=== PATIENT | female | born 1995 | race Caucasian/White ===

== ENCOUNTER 2024-11-25 08:35 | Outpatient (RCR) | payer BC, SELFPAY ==
[2024-11-25] MEDS: RHO(D) IMMUNE GLOBULIN 300 MCG/2 ML SYRINGE IM (14:43)
== END 2025-02-23 23:59 | disposition home or self-care (01) ==
LOC: ANHLAB 08:35
PROVIDERS: Visit Provider Obstetrics & Gynecology
DX: O26.899 Other specified pregnancy related conditions, unspecified trimester (principal); Z67.91 Unspecified blood type, Rh negative; Z3A.00 Weeks of gestation of pregnancy not specified
CPT/HCPCS: 36415; 85461; 86850; 86900; 86901; 90384; 96372; J2790

== ENCOUNTER 2024-12-05 11:13 | Observation (INO) | payer BC, SELFPAY ==
--- NOTE | 2024-12-05 11:15 | OBADM ---
This patient, Smita Rios, admitted to the OB room OB Post 115 for observation. Patient/family oriented to hospital policies and general routines including ID bracelet, bed and alarms, visiting hours, pain management, procedures, bathroom and other care routines, personal items, smoking policy, room service/diet, and visiting hours. Patient/Family are encouraged to report perceived risks to care and to ask questions if they do not understand what they are told or what they should do.
--- OUTSIDE RECORDS SUMMARY | 2024-12-05 11:19 | XMS_ITS | Encounter Summary ---
Author Organization [facility] Address [address] [place] [address] Phone Care Team Providers Care Farm Equipment Assembler Name Role Phone Ziggy Greene MD Primary Care Provider [phone] Sasha Wang APRN, TRAVIS Primary Care P rovider Encounter Details Date Type Department Care Team (Late Contact Info) Description 04/10/2021 [facility] [address] [place] [address] Sandra Thomas APRN, PASTRY COOK APPRENTICE [address] [place] [address] Social History Tobacco Use Types Packs/Day Years Used Date Smoking Tobacco: Never Smokeless Tobacco: Never Alcohol Use Standard Drinks/Week Comments No 0 (1 standard drink = 0.6 oz pur e alcohol) PHQ-2 Answer Date Recorded PHQ-2 Score 9 06/29/2019 Sexually Active Control Partners Comments Yes Oral Contraceptive Comments No Sex and Gender Information Value Date Recorded Sex Assigned at Not on file Legal Sex Female 10:39 PM CDT Gender Identity Not on file Sexual Orientation Not on file documented as of this encounter Plan of Treatment Upcoming Encounters Date Type Department Care Team (Late Contact Info) Description 12/09/2024 10:00 AM DIGITAL STRATEGY MANAGER [facility] - Rebecca [facility] [place] [address] [place] [phone] Sasha Wang HIP HOP ARTIST, PASTRY COOK APPRENTICE [address] [place] [id number] documented as of this encounter Procedures Procedure Name Priority Date/Time Associated Diagnosis Comments MMRV PANEL Routine 04/10/2021 9:55 AM CDT MUMPS IGG Routine 04/10/2021 9:55 AM CDT HERPES ZOSTER (VARICELLA) IGG Routine 04/10/2021 9:55 AM CDT RUBEOLA (MEASLES) IGG Routine 04/10/2021 9:55 AM CDT RUBELLA IMMUNITY IGG Routine 04/10/2021 9:55 AM CDT HEPATITIS B SURFACE ANTIBODY (HBSAB) Routine 04/10/2021 9:55 AM CDT documented in this encounter Results * (ABNORMAL) HERPES ZOSTER (VARICELLA) IGG (04/10/2021 9:55 AM CDT) VARICELLA ZOSTER IGG 0.5(L) >=1.1 AI 04/10/2021 9:55 PM CDT [facility] Blood Venipuncture / Unknown 04/10/2021 9:55 AM CDT 04/10/2021 1:27 PM CDT Narrative [facility] - 04/10/2021 9:55 PM CDT <= 0.8 Negative. No detectable VZV IgG antibody. 0.9 - 1.0 Equivocal >=1.1 Positive Antibody testing was performed by multiplex flow immunoassay on the [employer] platform. us Sandra Thomas HIP HOP ARTIST, PASTRY COOK APPRENTICE IMMUNOLOGY ORDERABL ES Final Result [facility] [address] [place] [address], [place] * (ABNORMAL) RUBEOLA (MEASLES) IGG (04/10/2021 9:55 AM CDT) MEASLES AB IGG 0.2(L) >=1.1 AI 04/10/2021 9:55 PM CDT [facility] Blood Venipuncture / Unknown 04/10/2021 9:55 AM CDT 04/10/2021 1:27 PM CDT Narrative [facility] - 04/10/2021 9:55 PM CDT <= 0.8 Negative. No detectable Measles IgG antibody. 0.9 - 1.0 Equivocal >=1.1 Positive Antibody testing was performed by multiplex flow immunoassay on the [employer] platform. Sandra Thomas HIP HOP ARTIST, PASTRY COOK APPRENTICE IMMUNOLOGY ORDERABL ES Final Result Performing Organization Address City/[facility]/ZIP Co de Phone Number [facility] [address] [place] [address], [place] * RUBELLA IMMUNITY IGG (04/10/2021 9:55 AM CDT) RUBELLA IMMUNITY Immune Immune, Invalid 04/10/2021 9:55 PM CDT [facility] Blood Venipuncture / Unknown 04/10/2021 9:55 AM CDT 04/10/2021 1:27 PM CDT Narrative [facility] - 04/10/2021 9:55 PM CDT Antibody testing was performed by multiplex flow immunoassay on the [employer] platform. us Sandra L Behrends HIP HOP ARTIST, PASTRY COOK APPRENTICE CHEMISTRY ORDERABLE S Final Result [facility] [address] [place] [address], [place] * (ABNORMAL) MUMPS IGG (04/10/2021 9:55 AM CDT) Mumps Ab IgG 1.0(L) >=1.1 AI 04/10/2021 9:55 PM CDT [facility] Blood Venipuncture / Unknown 04/10/2021 9:55 AM CDT 04/10/2021 1:27 PM CDT Narrative [facility] - 04/10/2021 9:55 PM CDT <= 0.8 Negative. No detectable Mumps IgG antibody. 0.9 - 1.0 Equivocal >=1.1 Positive Antibody testing was performed by multiplex flow immunoassay on the [employer] platform. us Sandra Thomas APRN, PASTRY COOK APPRENTICE IMMUNOLOGY ORDERABL ES Final Result Performing Organization Address City/[facility]/ZIP Co de Phone Number [facility] [address] [place] [address], [place] * HEPATITIS B SURFACE ANTIBODY (HBSAB) (04/10/2021 9:55 AM CDT) HEPATITIS B SURFACE ANTIBODY 19.05 mIU/mL [facility] ARCH [id number] B 04/10/2021 9:44 PM CDT [facility] Comment: Detected Range: >12.00 Individual is considered immune to HBV infection Blood Venipuncture / Unknown 04/10/2021 9:55 AM CDT 04/10/2021 1:27 PM CDT us Sandra Thomas APRN, PASTRY COOK APPRENTICE CHEMISTRY ORDERABLE S Final Result Performing Organization Address City/[facility] Co de Phone Number [facility] [address] [place] [address], [place] documented in this encounter Visit Diagnoses Not on filedocumented in this encounter Additional Health Concerns Infection Onset Date Last Indicated Resolved Time COVID - 19 10/22/2021 10/22/2021 11/11/2021 12:1 6 AM DIGITAL STRATEGY MANAGER COVID - 19 Confirmed 05/29/2022 05/29/2022 022 12:16 AM CDT Assessment Noted Time PHQ-9 Depression Total Score: 9 11/19/19 19 8:06 AM DIGITAL STRATEGY MANAGER documented as of this encounter Care Teams Farm Equipment Assembler Relationship Specialty Start Date End Date Ziggy Greene MD PCP - General Family Medicine 01/14/19 01/15/22 Sasha Wang APRN, PASTRY COOK APPRENTICE [address] [place] [address] PCP - General Advanced Practice Nurse 01/16/22 documented as of this encounter
--- OUTSIDE RECORDS SUMMARY | 2024-12-05 11:19 | XMS_ITS | Encounter Summary ---
Author Organization [facility] Address [address] [place] [address] Phone Care Team Providers Care Salesperson Yard Goods Name Role Phone Ziggy Greene MD Primary Care Provider [phone] Sasha Wang APRN, CNP Primary Care P rovider Encounter Details Date Type Department Care Team (Late st Contact Info) Description 10/23/2021 Lab Requisition [facility] Laboratory Services [address] [place] [address] Angel Mills MD [address] [place] [phone] Cough, unspecified; Nasal congestion; Headache, unspecified Social History Tobacco Use Types Packs/Day Years [...] (Late Contact Info) Description 12/09/2024 10:00 AM SENIOR ELECTRICAL DESIGN ENGINEER [facility] Rebecca [address] [place] [address] Sasha Wang APRN, CISCO CONSULTANT [address] [place] [address] documented as of this encounter Procedures Procedure Name Priority Date/Time Associated Diagnosis Comments SARS-COV-2 BY MOLECULAR Routine 10/22/2021 7:45 AM SENIOR ELECTRICAL DESIGN ENGINEER Cough, unspecified Nasal congestion Headache, unspecified documented in this encounter Results * SARS-COV-2 BY MOLECULAR (10/22/2021 7:45 AM SENIOR ELECTRICAL DESIGN ENGINEER) SARSCOV2 NOT DETECTED (Referenc e Range for this test is Not Detected) [facility] ID NOW 10/23/2021 9:19 AM SENIOR ELECTRICAL DESIGN ENGINEER [facility] Comment:This test was perfor med by a MOLECULAR, NON-PCR method Other No Phlebotomy Charged / Unknown 10/22/2021 7:45 AM SENIOR ELECTRICAL DESIGN ENGINEER 10/23/2021 9:18 AM SENIOR ELECTRICAL DESIGN ENGINEER Narrative [facility] - 10/23/2021 9:19 AM SENIOR ELECTRICAL DESIGN ENGINEER This test has been authorized by the FDA under an Emergency Use Authorization (EUA) only. Negative results should be treated as presumptive and, if inconsistent with clinical signs and symptoms or necessary for patient management, the patient should be tested with an alternative molecular assay. Negative results do not preclude SARS-CoV-2 infection or any other respiratory pathogen. Additional information for Clinicians can be found at: https://www.fda.gov/media/478297/download Additional information for Patients can be found at: https://www.fda.gov/media/276651/download us Angel Mills MD MICROBIOLOGY - GENERAL ORDERAB LES Final Result [facility] [address] [place] [address] documented in this encounter Visit Diagnoses Diagnosis Cough, unspecified Nasal congestion Other diseases of nasal cavity and sinuses Headache, unspecified documented in this encounter Additional Health Concerns Infection Onset Date Last Indicated Resolved Time COVID - 19 10/22/2021 10/22/2021 11/11/2021 12:1 6 AM SENIOR ELECTRICAL DESIGN ENGINEER COVID - 19 Confirmed 05/29/2022 05/29/2022 022 12:16 AM CDT Assessment Noted Time PHQ-9 Depression Total Score: 9 11/19/19 19 8:06 AM SENIOR ELECTRICAL DESIGN ENGINEER documented as of this encounter Care Teams Salesperson Yard Goods Relationship Specialty Start Date End Date Ziggy Greene MD PCP - General Family Medicine 01/14/19 01/15/22 Sasha Wang APRN, CISCO CONSULTANT [address] [place] [address] PCP - General Advanced Practice Nurse 01/16/22 documented as of this encounter
--- OUTSIDE RECORDS SUMMARY | 2024-12-05 11:19 | XMS_ITS | Clinical Summary ---
Author Organization [employer] [address] [facility] Address [address] [place] [address] Care Team Providers Care Second Grade Teacher Name Role Phone Unavailable Primary Care Provider Unavailabl e Allergies No known active allergies Medications levonorgestreL (ANTONINO) 14 mcg/24 hrs (3 yrs) 13.5 mg IUD by Intrauterine route. Active Active Problems Problem Noted Date Diagnosed Date Prediabetes 07/13/2019 Moderate episode of recurrent major depressive d isorder 07/13/2019 TATIANA (generalized anxiety disorder) 07/13/2019 IUD (intrauterine device) in place 07/13/2019 Overview (07/13/2019): Placed last year PCOS (polycystic ovarian syndrome) 07/13/2019 History of kidney stones 02/27/2017 Immunizations Immunization Administration Dates Next Due (ADACEL/BOOSTRIX)(10 YR UP) TDAP VACCINE, 0.5ML, IM 09/10/2019 (PFIZER)(12 YR UP) COVID-19 VACCINE - EMERGENCY USE AUTHORIZATION, MRNA, [id number](PF) 30 MCG/0.3 ML IM SUSP 10/19/2020,09/27/2020 Influenza Seasonal Unspecifi ed Formulation IM 07/14/2020,06/29/2019,06/16/2019 Influenza Vaccine Tri Split 4+ Im 07/14/2018 Family History Medical History Relation Name Comments No Known Problems Father No Known Problems Maternal Grandfather COPD Maternal Grandmother Heart Disease Maternal Grandmother Kidney Disease Maternal Grandmother No Known Problems Mother No Known Problems Paternal Grandfather Cancer Paternal Grandmother skin Diabetes Paternal Grandmother Heart Disease Paternal Grandmother Relation Name Status Comments Father Alive Maternal Grandfather Maternal Grandmother Mother Alive Paternal Grandfather Paternal Grandmother Social History Tobacco Use Types Packs/Day Years Used Date Smoking Tobacco: Never Smokeless Tobacco: Never Tobacco Cessation:Counseling Given: No Alcohol Use Standard Drinks/Week Comments Never 0 (1 standard drink = 0.6 oz pur e alcohol) Comments No Sex and Gender Information Value Date Recorded Sex Assigned at Not on file Legal Sex Female 8:29 AM CDT Gender Identity Not on file Sexual Orientation Not on file Last Filed Vital Signs Vital Sign Reading Time Taken Comments Blood Pressure 110/70 10/03/2020 9:04 AM ARCHITECTURAL REPRESENTATIVE Pulse 84 12/28/2019 2:55 PM CDT Temperature 36.3 C (97.4 F) 10/19/2019 10:57 AM ARCHITECTURAL REPRESENTATIVE Respiratory Rate 17 12/28/2019 2:55 PM CDT Oxygen Saturation 97% 12/28/2019 2:55 PM CDT Inhaled Oxygen Concentration - - Weight 84.2 kg (185 lb 9.6 oz) 10/03/2020 9:04 A M ARCHITECTURAL REPRESENTATIVE Height 172.7 cm (5' 8 ) 10/03/2020 9:04 AM ARCHITECTURAL REPRESENTATIVE Body Mass Index 28.22 10/03/2020 9:04 AM ARCHITECTURAL REPRESENTATIVE Plan of Treatment Health Maintenance Due Date Last Done Comments HEPATITIS B VACCINES (1 of 3 - 19+ 3-dose series) 2015 CERVICAL CANCER SCREENING 10/03/20232019, 07/26/2019, 07/19/2019 INFLUENZA VACCINE (#1) 2024 0, 07/14/2020, 06/29/2019, Additional history exists COVID-19 Vaccine (2023- season) 2024 10/19/2020, 09/27/2020 DTAP/TDAP/TD VACCINES (2 - Td or Tdap) 09/10/2029 09/10/2019 CHLAMYDIA SCREENING (ANNUAL) 11-24 YEARS Discontinued 10/03/2020, 09/24/2019, 07/19/2019 HPV VACCINES Aged Out No longer eligi ble based on patient's age to complete this topic PNEUMOCOCCAL VACCINE 0-64 YEARS Aged Out No longer eligible based on patient's age to complete this topic Procedures Procedure Name Priority Date/Time Associated Diagnosis Comments CHLAMYDIA AND GC, PAP VIAL Routine 10/03/2020 9:23 AM ARCHITECTURAL REPRESENTATIVE Encounter for gynecological examination without abnormal finding Screening examination for venereal disease CERV/VAG CYTO AGE BASED SCREEN PAP W CT/NG Routine 10/03/2020 9:23 AM ARCHITECTURAL REPRESENTATIVE Encounter for gynecological examination without abnormal finding Screening examination for venereal disease from Last 3 Months or Most Recently Relevant to Health Maintenance Results * CERV/VAG CYTO AGE BASED SCREEN PAP W CT/NG (10/03/2020 9:23 AM ARCHITECTURAL REPRESENTATIVE) CASE REPORT Gynecologic Cytology Report Case: [id number] Authorizing Provider: Ana María Austin MD Collected: 10/03/2020 09:23 AM Ordering Location: [facility] Received: 10/03/2020 09:[address] Screen: Diane Srivastava Rescreen: Milvia Houser Specimen: LB PAP TP PROT, Endocervix 10/18/2020 1:40 PM ARCHITECTURAL REPRESENTATIVE [facility] Carbide Grinder Specimen Adequacy Satisfactory for evaluation, endocervical/hood sformation zone component present 10/18/2020 1:40 PM ARCHITECTURAL REPRESENTATIVE [facility] Interpretation Negative for intraepithelial lesion or malignancy 10/18/2020 1:40 PM [facility] Carbide Grinder Other Findings Fungal organisms morphologically consistent with Deidra species 10/18/2020 1:40 PM ARCHITECTURAL REPRESENTATIVE [facility] Carbide Grinder Prev Pap Result LSIL 2019 10/18/2020 1:40 PM ARCHITECTURAL REPRESENTATIVE [facility] Carbide Grinder Educational Note 10/18/2020 1:40 PM ARCHITECTURAL REPRESENTATIVE [facility] Comment:The Pap test is a sc reening test used to aid in the detection of cervical cancer and its precursors. It should not be the sole means by which malignant and premalignant lesions are diagnosed. Both false negative and false positive results may occur. Results must be interpreted in the context of historic and current clinical information. EMBEDDED IMAGE 10/18/2020 1:40 PM ARCHITECTURAL REPRESENTATIVE [facility] Genital SWAB OF ENDOCERVIX / Unknown Collection / Unknown 10/03/2020 9:23 AM ARCHITECTURAL REPRESENTATIVE 10/03/2020 9:02 PM ARCHITECTURAL REPRESENTATIVE Ana María Austin MD PATHOLOGY/CYTOLOGY ORDERABLES Final Result [facility] CLIA# [id number] [place] [address] * CHLAMYDIA AND GC, PAP VIAL (10/03/2020 9:23 AM ARCHITECTURAL REPRESENTATIVE) CHLAMYDIA DNA AMPLIFICATION NOT DETECTED Not Detected 10/04/2020 12:49 AM ARCHITECTURAL REPRESENTATIVE [facility] GC DNA AMPLIFICATION NOT DETECTED Not Detected 10/04/2020 12:49 AM [facility] Genital SWAB OF ENDOCERVIX / Unknown Collection / Unknown 10/03/2020 9:23 AM ARCHITECTURAL REPRESENTATIVE 10/03/2020 9:02 PM ARCHITECTURAL REPRESENTATIVE Ana María Austin MD BODY FLUIDS AND STOOLS COM Fin al Result [facility] CLIA# [id number] [place] [address] from Last 3 Months or Most Recently Relevant to Health Maintenance
--- OUTSIDE RECORDS SUMMARY | 2024-12-05 11:19 | XMS_ITS | Encounter Summary ---
Author Organization [facility] Address [address] [place] [address] Care Team Providers Care Home Health Care Provider Name Role Phone Alva Umaña Primary Care Provider [phone] Encounter Details Date Type Department Care Team (Late st Contact Info) Description 02/16/2019 Lab Requisition [facility] [address] [place] [address] [place] [address] [facility] [address] [place] [phone] Social History Tobacco Use Types Packs/Day Years Used Date Smoking Tobacco: Never Assessed Comments Unknown Sex and Gender Information Value Date Recorded Sex Assigned at Not on file Legal Sex Female 8:29 AM CDT Gender Identity Not on file Sexual Orientation Not on file documented as of this encounter Plan of Treatment Not on file documented as of this encounter Procedures Procedure Name Priority Date/Time Associated Diagnosis Comments T-SPOT TB Routine 02/16/2019 8:30 AM CDT HEPATITIS B SURFACE AB, QUANT Routine 02/16/2019 8:30 AM CDT documented in this encounter Results * T-SPOT TB (02/16/2019 8:30 AM CDT) T-SPOT TB Negative 02/19/2019 8:15 AM CDT [facility] [employer] [facility] T-SPOT TB See Scanned Report 02/19/2019 8:15 AM CDT [facility] [employer] [facility] Blood Venipuncture / Unknown 02/16/2019 8:30 AM CDT 02/16/2019 8:30 AM CDT Luis Ceron MD MICROBIOLOGY - GENERAL ORDER SINDHU Final Result Performing Organization Address City/[facility]/ZIP Co de Phone Number [facility] [[email or web address]] CLIA# [id number] [place] [address] * (ABNORMAL) HEPATITIS B SURFACE AB, QUANT (02/16/2019 8:30 AM CDT) HEPATITIS B SURF AB,QN <4.0 mlU/mL 02/16/2019 2:11 PM CDT [facility] HEPATITIS B SURFACE AB INTERP Non-reacti ve(A) See Interp 02/16/2019 2:11 PM CDT [facility] Blood Venipuncture / Unknown 02/16/2019 8:30 AM CDT 02/16/2019 8:30 AM CDT Narrative [facility] - 02/16/2019 2:11 PM CDT Patient does not have immunity to Hepatitis B virus. This assay is used to determine immune status to Hepatitis B as greater than or equal to 10 mIU/mL as per CDC guidelines (MMWR:vol 55: RR-16, 2006). Luis Ceron MD CHEMISTRY ORDERABLES Final R esult Performing Organization Address City/[facility]/ZIP Co de Phone Number [facility] CLIA# [id number] [address] [place] [address] documented in this encounter Visit Diagnoses Not on filedocumented in this encounter Additional Health Concerns Infection Onset Date Last Indicated Resolved Time R/O COVID-19 08/17/2020 08/17/2020 08/24/2021 9:06 PM BOTTLE WASHER documented as of this encounter Care Teams Home Health Care Provider Relationship Specialty Start Date End Date Alva Umaña DO PCP - General Family Practice 07/12/19 04/19/21 documented as of this encounter
--- OUTSIDE RECORDS SUMMARY | 2024-12-05 11:19 | XMS_ITS | Clinical Summary ---
Author Organization [facility] Address [address] [place] [address] Phone Care Team Providers Care Health And Social Care Teacher Name Role Phone Sasha Wang APRN, CNP Primary Care P rovider Allergies No known active allergies Medications Vit-Fe Fumarate-FA (MULTI PO) Take by mouth daily. Active fluconazole (DIFLUCAN) 150 MG TabletIndication s:Vagina, candidiasis 1 tab now, repeat in 3 days. 2 Tablet 06/04/2024 Active Active Problems Problem Noted Date Diagnosed Date Pre-diabetes 10/23/2023 PCOS (polycystic ovarian syndrome) 10/23/2023 Current moderate episode of major depressive disorder without prior episode 11/19/2018 Vitamin D deficiency 10/16/2017 B12 deficiency 10/16/2017 Fatigue 09/23/2017 History of kidney stones 02/27/2017 Encounters Date Type Department Care Team Description 09/22/2024 [facility] [address] [place] [address] Sasha Wang APRN, ENTERPRISE INFRASTRUCTURE ARCHITECT Advice Only from Last 3 Months Immunizations Immunization Administration Dates Next Due Covid-19, Mrna, Lnp-s, Pf, 3 0 Mcg/0.3 Ml Dose (DC Devices) 09/28/2021 DTAP VACCINE, UNSPECIFIED FORMULATION ,11/24/1997,02/04/1997,12/16,1996 Hepatitis A Vaccine 03/05/2017 Hepatitis A Vaccine,unspecif ied Formulation 03/12/2016 Hepatitis B Vaccine,unspecif ied Formulation 1996,1996,1996 Hib Vaccine,unspecified Formulation 09/13,02/04/1997,1996,07/09 Human Papillomavirus Vaccine (HPV), quadrivalent 10/03/2010,06/28/2010,04/05/2010 Influenza Vaccine greater than 3 yrs 08/01/2020, 07/14/2018 Influenza Vaccine, Quadrivalent, PF 06/25/2023,1 ,07/02/2018 Influenza, Injectable, Quadrivalent 03/05/2017 Influenza, Seasonal, Injecta ble, Undefined 08/01/2020,07/14/2020,06/29/2019,06/16,07/14/2018 MMR Vaccine 04/18/2001,10/07/1997 Meningococcal Vaccine 06/02/2008 Polio Vaccine,unspecified Formulation ,11/24/1997,1996,07/09 TB Skin Test 04/05/2022 TDAP Vaccine 09/10/2019,04/05/2010 Varicella Vaccine Live 04/04/2017,03/05/2017 Family History Medical History Relation Name Comments Congestive Heart Failure Father Cervical Cancer Mother Osteoarthritis Mother Asthma Sister Relation Name Status Comments Father Alive Mother Alive Sister Alive Social History Tobacco Use Types Packs/Day Years Used Date Smoking Tobacco: Never Smokeless Tobacco: Never Tobacco Cessation:Counseling Given: Not Answered Alcohol Use Standard Drinks/Week Comments No 0 (1 standard drink = 0.6 oz pur e alcohol) [facility] AllergEaseities Answer Date Recorded In the past 12 months has [employer], gas, oil, or water [employer] threatened to shut off services in your home? No 10/21/2023 Social Connection and Isolat ion Panel [NHANES] Answer Date Recorded In a typical week, how many times do you talk on the phone with family, friends, or neighbors? More than three times a week 10/21/2023 How often do you get togethe r with friends or relatives? Twice a week 10/21/2023 How often do you attend [facility] or sikhism services? Never 10/21/2023 Do you belong to any clubs o r organizations such as samaritan groups, unions, fraternal or athletic groups, or school groups? No 10/21/2023 How often do you attend meet ings of the clubs or organizations you belong to? Never 10/21/2023 Are you , , di vorced, , never , or living with a partner? Living with partner 10/21/2023 AUDIT-C Answer Date Recorded Q1: How often do you have a drink containing alc ohol? Monthly or less 10/21/2023 Q2: How many drinks containi ng alcohol do you have on a typical day when you are drinking? 1 or 2 10/21/2023 Q3: How often do you have si x or more drinks on one occasion? Less than monthly 10/21/2023 Overall Financial Resource Strain (CARDIA) Answe r Date Recorded How hard is it for you to pa y for the very basics like food, housing, medical care, and heating? Patient declined 10/21/2023 PHQ-2 Answer Date Recorded Total Score - Questions 1-9 10 03/2022 [facility] - Occupational Stress Questionnaire Answer Date Recorded Do you feel stress - tense, restless, nervous, or anxious, or unable to sleep at night because your mind is troubled all the time - these days? Only a little 10/21/2023 Exercise Vital Sign Answer Date Recorde d On average, how many days pe r week do you engage in moderate to strenuous exercise (like a brisk walk)? 3 days 10/21/2023 On average, how many minutes do you engage in exercise at this level? 40 min 10/21/2023 Hunger Vital Sign Answer Date Recorded Within the past 12 months, y ou worried that your food would run out before you got the money to buy more. Patient declined Within the past 12 months, t he food you bought just didn't last and you didn't have money to get more. Patient declined 06/2024 PRAPARE - Transportation Answer Date Re corded In the past 12 months, has l ack of transportation kept you from medical appointments or from getting medications? No 06/2024 In the past 12 months, has l ack of transportation kept you from meetings, work, or from getting things needed for daily living? No 10/21/2023 Housing Stability Vital Sign Answer Jb e Recorded In the last 12 months, was t here a time when you were not able to pay the mortgage or rent on time? No 10/21/2023 In the last 12 months, how many places have you lived? 1 10/21/2023 In the last 12 months, was t here a time when you did not have a steady place to sleep or slept in a mcc (including now)? No 10/21/2023 Education Answer Date Recorded What is the highest level of school you have completed or the highest degree you have received? Associate degree: academic program 05/01/2022 Sexually Active Control Partners Comments Yes Comments No Sex and Gender Information Value Date Recorded Sex Assigned at Not on file Legal Sex Female 10:39 PM CDT Gender Identity Not on file Sexual Orientation Not on file Last Filed Vital Signs Vital Sign Reading Time Taken Comments Blood Pressure 122/88 06/03/2024 9:45 AM CDT Pulse 79 06/03/2024 9:45 AM CDT Temperature 37.4 C (99.4 F) 06/03/2024 9:45 AM CDT Respiratory Rate 14 06/03/2024 9:45 AM CDT Oxygen Saturation 100% 06/03/2024 9:45 AM CDT Inhaled Oxygen Concentration - - Weight 89.4 kg (197 lb 2 oz) 06/03/2024 9:45 AM CDT Height 172.7 cm (5' 8 ) 06/03/2024 9:45 AM CDT Body Mass Index 29.97 06/03/2024 9:45 AM CDT Plan of Treatment Upcoming Encounters Date Type Department Care Team (Late st Contact Info) Description 12/09/2024 10:00 AM ASSEMBLY MEMBER Office Visit [facility] - Primary Care - [place] [address] [place] [address] Sasha Wang APRN, ENTERPRISE INFRASTRUCTURE ARCHITECT [address] [place] [address] Health Maintenance Due Date Last Done Comments Hepatitis C Virus (HCV) Screening 1996 Pap Smear 10/03/2023 10/03/2020 Influenza Immunization (#1) 06/13/202406/13, 07/18/2022, 08/01/2020, Additional history exists SARS-COV-2 Immunization ( season) 2024 09/28/2021, 10/19/2020, 09/27/2020 DTaP/Tdap/Td Immunization (8 - Td or Tdap) 09/10/2029 09/10/2019, 04/05/2010, 04/28/2001, Additional history exists Td Immunization Every 10 Years (Adults With 1 Tdap) 09/10/2029 09/10/2019, 04/05/2010 Respiratory Syncytial Virus (RSV) Immunization (Adult) (1 - 1-dose 75+ series) 2071 Hepatitis B Immunization Completed 997, 1996, 1996 Meningococcal Immunization (ACWY) Aged Out 06/02/2008 No longer eligible based on patient's age to complete this topic Human Papillomavirus (HPV) Immunization Discontinued 10/03/2010, 06/28/2010, 04/05/2010 Pneumococcal Immunization Combined Aged Out No longer eligible based on patient's age to complete this topic Rotavirus Immunization Aged Out No lo nger eligible based on patient's age to complete this topic Insurance [facility] Care Teams Health And Social Care Teacher Relationship Specialty Start Date End Date Sasha Wang APRN, ENTERPRISE INFRASTRUCTURE ARCHITECT [address] [place] [address] PCP - General Advanced Practice Nurse 01/16/22
[2024-12-05 11:31] VITALS: BP 133/71; PULSE 83
[2024-12-05 11:45] LABS: Add Urine Microscopic? NO; Appearance Urine Clear (Clear); Bilirubin Urine Negative (Negative); Blood Urine Negative (Negative); Color Urine Yellow (Yellow); Glucose Urine UA Negative (Negative); Ketones Urine Negative (Negative); Leukocyte Esterase Ur Negative LEU/UL (Negative); Nitrate Urine Negative (Negative); Protein Urine Negative (Negative); Urobilinogen Urine 0.2 mg/dL (<2.0); pH Urine 7.5 (5.0-9.0)
[2024-12-05 11:46] VITALS: BP 134/69; PULSE 78
[2024-12-05 12:01] VITALS: BP 130/69; PULSE 80
[2024-12-05 12:16] VITALS: BP 124/71; PULSE 72
[2024-12-05 12:26] VITALS: BMI 33.5
--- NOTE | 2024-12-08 12:27 | P.PNOB_ITS ---
OB - Triage/Final Diagnosis Visit Information Reason for evaluation: threatened labor Comments/Additional reasons for admission: I have assessed the risk for this patient, Smita Rios, and determined that she would benefit from observation care. Evaluation Laboratory results: Laboratory Tests 12/05/24 11:22 Urine Color Yellow Urine Appearance Clear Urine pH 7.5 Ur Specific [place] 1.010 Urine Protein Negative Urine Glucose (UA) Negative Urine Ketones Negative Ur Blood (Man) Negative Urine Nitrate Negative Urine Bilirubin Negative Urine Urobilinogen 0.2 Ur Leukocyte Esterase Negative
== END 2024-12-05 12:25 | disposition home or self-care (01) ==
PROVIDERS: Admitting Provider Obstetrics & Gynecology; Visit Provider Obstetrics & Gynecology
DX: O47.03 False labor before 37 completed weeks of gestation, third trimester (principal); Z3A.29 29 weeks gestation of pregnancy
CPT/HCPCS: 81003; 87086; G0378; G0379

== ENCOUNTER 2025-01-07 09:36 | Outpatient (CLI) | payer BC, SELFPAY ==
[2025-01-07] VITALS (8 sets, daily range): BP systolic 129–142; BP diastolic 79–84; PULSE 66–76; BMI 35.9
[2025-01-07 10:14] LABS: Basophils Percent Auto 0.2 % (0.2-1.2); Eosinophils Percent Auto 0.4 % (0-4.4); Hematocrit 31.9 % (37.0-47.0); Hemoglobin 10.7 g/dL (12.0-15.0); Immature Granulocyte Absolute 0.04 K/mm3 (0.00-0.031); Immature Granulocyte Percent A 0.4 % (0-0.5); Lymphocytes Absolute Auto 1.44 K/mm3 (0.9-3.2); Lymphocytes Percent Auto 14.7 % (18.3-44.2); Mean Corpuscular HGB Conc 33.5 g/dl (32-36); Mean Corpuscular Hemoglobin 27.8 pg (26-34); Mean Corpuscular Volume 82.9 fl (80-100); Mean Platelet Volume 9.1 fl (7.4-10.4); Monocytes Absolute Auto 0.4 K/mm3 (0.1-0.6); Monocytes Percent Auto 4.2 % (2.6-8.5); Neutrophils Absolute Auto 7.9 K/mm3 (1.3-6.7); Neutrophils Percent Auto 80.1 % (45.5-73.1); Platelet Count Result 321 k/mm3 (150-375); Red Blood Count 3.85 M/mm3 (4.2-5.4); Red Cell Distribution Width 13.1 % (11.5-14.5); White Blood Count 9.8 K/mm3 (4.5-10.0)
--- OUTSIDE RECORDS SUMMARY | 2025-01-07 10:18 | XMS_ITS | Encounter Summary ---
Author Organization [facility] Address [address] [place] [address] Phone Care Team Providers Care Inventory Associate And Driver Name Role Phone Ziggy Greene MD Primary Care Provider [phone] Sasha Wang APRN, CNP Primary Care P rovider Encounter Details Date Type Department Care Team (Late st Contact Info) Description 04/10/2021 [facility] [address] [place] [address] Sandra Thomas APRN, RECORDS TECH [address] [place] [address] Social History Tobacco Use Types [...] 0.5(L) >=1.1 AI 04/10/2021 9:55 PM CDT [facility] Blood Venipuncture / Unknown 04/10/2021 9:55 AM CDT 04/10/2021 1:27 PM CDT Narrative [facility] - 04/10/2021 9:55 PM CDT <= 0.8 Negative. No detectable VZV IgG antibody. 0.9 - 1.0 Equivocal >=1.1 Positive Antibody testing was performed by multiplex flow immunoassay on the [employer] platform. us Sandra Thomas ADVERTISING EXECUTIVE, RECORDS TECH IMMUNOLOGY ORDERABL ES Final Result [facility] [address] [place] [address], * (ABNORMAL) RUBEOLA (MEASLES) IGG (04/10/2021 9:55 AM CDT) MEASLES AB IGG 0.2(L) >=1.1 AI 04/10/2021 9:55 PM CDT [facility] Blood Venipuncture / Unknown 04/10/2021 9:55 AM CDT 04/10/2021 1:27 PM CDT Narrative [facility] - 04/10/2021 9:55 PM CDT <= 0.8 Negative. No detectable Measles IgG antibody. 0.9 - 1.0 Equivocal >=1.1 Positive Antibody testing was performed by multiplex flow immunoassay on the BioPlex platform. us Sandra Thomas APRN, CNP IMMUNOLOGY ORDERABL ES Final Result Performing Organization Address City/[facility] Co de Phone Number [facility] [address] [place] [address], [place] * RUBELLA IMMUNITY IGG (04/10/2021 9:55 AM CDT) RUBELLA IMMUNITY Immune Immune, Invalid 04/10/2021 9:55 PM CDT [facility] Blood Venipuncture / Unknown 04/10/2021 9:55 AM CDT 04/10/2021 1:27 PM CDT Narrative [facility] - 04/10/2021 9:55 PM CDT Antibody testing was performed by multiplex flow immunoassay on the BioPlex platform. us Sandra Thomas APRN, CNP CHEMISTRY ORDERABLE S Final Result Performing Organization Address [facility] de Phone Number [facility] [address] [place] [address], [place] * (ABNORMAL) MUMPS IGG (04/10/2021 9:55 AM CDT) Mumps Ab IgG 1.0(L) >=1.1 AI 04/10/2021 9:55 PM CDT [facility] Blood Venipuncture / Unknown 04/10/2021 9:55 AM CDT 04/10/2021 1:27 PM CDT Narrative [facility] - 04/10/2021 9:55 PM CDT <= 0.8 Negative. No detectable Mumps IgG antibody. 0.9 - 1.0 Equivocal >=1.1 Positive Antibody testing was performed by multiplex flow immunoassay on the [employer] platform. us Sandra Thomas APRN, CNP IMMUNOLOGY ORDERABL ES Final Result Performing Organization Address [facility] Co de Phone Number [facility] [address] [place] [address], [place] * HEPATITIS B SURFACE ANTIBODY (HBSAB) (04/10/2021 9:55 AM CDT) HEPATITIS B SURFACE ANTIBODY 19.05 mIU/mL [facility] ARCH [id number] 04/10/2021 9:44 PM CDT [facility] Comment: Detected Range: >12.00 Individual is considered immune to HBV infection Blood Venipuncture / Unknown 04/10/2021 9:55 AM CDT 04/10/2021 1:27 PM CDT us Sandra Thomas APRN, CNP CHEMISTRY ORDERABLE S Final Result Performing Organization Address [facility] Co de Phone Number [facility] [address] [place] [address], [place] documented in this encounter Visit Diagnoses Not on filedocumented in this encounter Additional Health Concerns Infection Onset Date Last Indicated Resolved Time COVID - 19 10/22/2021 10/22/2021 11/11/2021 12:1 6 AM PAPER BAG MACHINE OPERATOR COVID - 19 Confirmed 05/29/2022 05/29/2022 022 12:16 AM CDT Assessment Noted Time PHQ-9 Depression Total Score: 9 11/19/19 19 8:06 AM PAPER BAG MACHINE OPERATOR documented as of this encounter Care Teams Inventory Associate And Driver Relationship Specialty Start Date End Date Ziggy Greene MD PCP - General Family Medicine 01/14/19 01/15/22 Sasha Wang APRN, TRAVIS [address] [place] [address] PCP - General Advanced Practice Nurse 01/16/22 documented as of this encounter
--- OUTSIDE RECORDS SUMMARY | 2025-01-07 10:18 | XMS_ITS | Clinical Summary ---
Author Organization [employer] [address] [facility] Address [address] [place] [address] Care Team Providers Care Oil And Gas Principal Name Role Phone Unavailable Primary Care Provider [...] COVID-19 VACCINE - EMERGENCY USE AUTHORIZATION, MRNA, [id number](PF) 30 MCG/0.3 ML IM SUSP 10/19/2020,09/27/2020 Influenza [...] Comments Blood Pressure 110/70 10/03/2020 9:04 AM LONGWALL SHEARER OPERATOR Pulse 84 12/28/2019 2:55 PM CDT Temperature 36.3 C (97.4 F) 10/19/2019 10:57 AM LONGWALL SHEARER OPERATOR Respiratory Rate 17 12/28/2019 2:55 PM CDT Oxygen Saturation 97% 12/28/2019 2:55 PM CDT Inhaled Oxygen Concentration - - Weight 84.2 kg (185 lb 9.6 oz) 10/03/2020 9:04 A M LONGWALL SHEARER OPERATOR Height 172.7 cm (5' 8 ) 10/03/2020 9:04 AM LONGWALL SHEARER OPERATOR Body Mass Index 28.22 10/03/2020 9:04 AM LONGWALL SHEARER OPERATOR Plan of Treatment Health Maintenance Due Date Last Done Comments HEPATITIS B VACCINES (1 of 3 - 19+ 3-dose series) 2015 CERVICAL CANCER SCREENING 10/03/2023 PAP SMEAR 10/03/2023 10/03/2020, 07/13, 07/19/2019 PAP SMEAR 10/03/2023 10/03/2020, 07/13, 07/19/2019 INFLUENZA VACCINE (#1) 2024 , 07/14/2020, 06/29/2019, Additional history exists COVID-19 Vaccine (2023- season) 2024 10/19/2020, 09/27/2020 DTAP/TDAP/TD VACCINES (2 - Td or Tdap) 09/10/2029 09/10/2019 CHLAMYDIA SCREENING (ANNUAL) 11-24 YEARS Discontinued 10/03/2020, 09/24/2019, 07/19/2019 HPV VACCINES Aged Out No longer eligi ble based on patient's age to complete this topic PNEUMOCOCCAL VACCINE 0-49 YEARS Aged Out No longer eligible based on patient's age to complete this topic Procedures Procedure Name Priority Date/Time Associated Diagnosis Comments CHLAMYDIA AND GC, PAP VIAL Routine 10/03/2020 9:23 AM LONGWALL SHEARER OPERATOR Encounter for gynecological examination without abnormal finding Screening examination for venereal disease CERV/VAG CYTO AGE BASED SCREEN PAP W CT/NG Routine 10/03/2020 9:23 AM LONGWALL SHEARER OPERATOR Encounter for gynecological examination without abnormal finding Screening examination for venereal disease from Last 3 Months or Most Recently Relevant to Health Maintenance Results * CERV/VAG CYTO AGE BASED SCREEN PAP W CT/NG (10/03/2020 9:23 AM LONGWALL SHEARER OPERATOR) CASE REPORT Gynecologic Cytology Report Case: [id number] Authorizing Provider: Ana María Austin MD Collected: 10/03/2020 09:23 AM Ordering Location: [facility] Received: 10/03/2020 09:02 PM [facility] - [address] [place] [address] First Screen: Diane Srivastava Rescreen: Milvia Houser Specimen: LB PAP TP PROT, Endocervix 10/18/2020 1:40 PM [facility] Specimen Adequacy Satisfactory for evaluation, endocervical/hood sformation zone component present 10/18/2020 1:40 PM LONGWALL SHEARER OPERATOR [facility] Lens Grinder Rough Interpretation Negative for intraepithelial lesion or malignancy 10/18/2020 1:40 PM [facility] Lens Grinder Rough Other Findings Fungal organisms morphologically consistent with Deidra species 10/18/2020 1:40 PM LONGWALL SHEARER OPERATOR [facility] Lens Grinder Rough Prev Pap Result LSIL 2019 10/18/2020 1:40 PM LONGWALL SHEARER OPERATOR [facility] Lens Grinder Rough Educational Note 10/18/2020 1:40 PM LONGWALL SHEARER OPERATOR [facility] Comment:The Pap test is a sc reening test used to aid in the detection of cervical cancer and its precursors. It should not be the sole means by which malignant and premalignant lesions are diagnosed. Both false negative and false positive results may occur. Results must be interpreted in the context of historic and current clinical information. EMBEDDED IMAGE 10/18/2020 1:40 PM LONGWALL SHEARER OPERATOR [facility] Genital SWAB OF ENDOCERVIX / Unknown Collection / Unknown 10/03/2020 9:23 AM LONGWALL SHEARER OPERATOR 10/03/2020 9:02 PM LONGWALL SHEARER OPERATOR us Ana María Austin MD PATHOLOGY/CYTOLOGY ORDERABLES Final Result [facility] CLIA# [id number] [place] [address] * CHLAMYDIA AND GC, PAP VIAL (10/03/2020 9:23 AM LONGWALL SHEARER OPERATOR) CHLAMYDIA DNA AMPLIFICATION NOT DETECTED Not Detected 10/04/2020 12:[address] [facility] GC DNA AMPLIFICATION NOT DETECTED Not Detected 10/04/2020 12:[address] [facility] Genital SWAB OF ENDOCERVIX / Unknown Collection / Unknown 10/03/2020 9:23 AM LONGWALL SHEARER OPERATOR 10/03/2020 9:02 PM LONGWALL SHEARER OPERATOR us Ana María Austin MD BODY FLUIDS AND STOOLS COM Fin al Result Performing Organization Address City/[facility]/ZIP Co de Phone Number [facility] CLIA# [id number] [place] [address] from Last 3 Months or Most Recently Relevant to Health Maintenance
--- OUTSIDE RECORDS SUMMARY | 2025-01-07 10:18 | XMS_ITS | Encounter Summary ---
Author Organization [facility] Address [address] [place] [address] Phone Care Team Providers Care Air Pollution Compliance Inspector Name Role Phone Sasha Wang APRN, CNP Primary Care P rovider Reason for Visit * Reason Onset Date Comments Appointment 01/07/2025 Encounter Details Date Type Department Care Team (Late st Contact Info) Description 01/07/2025 Telephone [facility] [address] [place] [address] Sasha Wang APRN, TRAVIS [address] [place] [address] Appointment Social History Tobacco Use Types Packs/Day Years Used Date Smoking Tobacco: Never Smokeless Tobacco: Never Alcohol Use Standard Drinks/Week Comments No 0 (1 standard drink = 0.6 oz pur e alcohol) [facility] Utilities Answer Date Recorded In the past 12 months has [employer], gas, oil, or water company threatened to shut off services in your [...] week 10/21/2023 How often do you attend [facility] or cheondoism services? Never 10/21/2023 Do you belong to any clubs o r organizations such as mormon groups, unions, fraternal or athletic groups, or [...] Score - Questions 1-9 10 03/2022 [facility] of Occupat ional Health - Occupational Stress [...] place to sleep or slept in a nursing home (including now)? No 10/21/2023 Education Answer Date [...] on file documented as of this encounter Miscellaneous Notes * Telephone Encounter - Jenny Castillo RN - 01/07/2025 8:54 AM CDT Situation: New patient questions. Background: Emilie contacting Dr. Josephine Le's office Assessment: Emilie is due to have her baby in the next 30 days. She is calling to make sure Dr. Le is accepting new patients. Recommendation: She is aware that Dr. Le office would be able to be her babies primary care provider. Recommended she call before discharge from the hospital to set up a visit time. She verbalized understanding. documented in this encounter Plan of Treatment Not on file documented as of this encounter Visit Diagnoses Not on filedocumented in this encounter Additional Health Concerns Assessment Noted Time PHQ-9 Depression Total Score: 10 022 2:00 PM CDT documented as of this encounter Care Teams Air Pollution Compliance Inspector Relationship Specialty Start Date End Date Sasha Wang APRN, STONE POLISHER MACHINE [address] [place] [address] PCP - General Advanced Practice Nurse 01/16/22 documented as of this encounter
--- OUTSIDE RECORDS SUMMARY | 2025-01-07 10:18 | XMS_ITS | Encounter Summary ---
Author Organization [facility] Address [address] [place] [address] Care Team Providers Care Cigar Making Machine Operator Name Role Phone Alva Umaña Primary Care Provider [phone] Encounter Details Date Type Department Care Team (Late st Contact Info) Description 02/16/2019 Lab Requisition [facility] [address] [place] [address] [place] [address] [facility] [address] [place] [phone] Social History Tobacco Use Types Packs/Day Years [...] T-SPOT TB Negative 02/19/2019 8:15 AM CDT [facility] [place] [facility] T-SPOT TB See Scanned Report 02/19/2019 8:15 AM CDT [facility] [place] [facility] Blood Venipuncture / Unknown 02/16/2019 8:30 AM CDT 02/16/2019 8:30 AM CDT Luis Ceron MD MICROBIOLOGY - GENERAL ORDER SINDHU Final Result Performing Organization Address City/[facility]/ZIP Co de Phone Number [facility] CLIA# [id number] [address] [place] [address] * (ABNORMAL) HEPATITIS B SURFACE AB, QUANT (02/16/2019 8:30 AM CDT) HEPATITIS B SURF AB,QN <4.0 mlU/mL 02/16/2019 2:11 PM CDT [facility] HEPATITIS B SURFACE AB INTERP Non-reacti ve(A) See Interp 02/16/2019 2:11 PM CDT [facility] Blood Venipuncture / Unknown 02/16/2019 8:30 AM CDT 02/16/2019 8:30 AM CDT Narrative [facility] - 02/16/2019 2:11 PM CDT Patient does not have immunity to Hepatitis B virus. This assay is used to determine immune status to Hepatitis B as greater than or equal to 10 mIU/mL as per CDC guidelines (MMWR:vol 55: RR-16, 2006). Luis Ceron MD CHEMISTRY ORDERABLES Final R esult Performing Organization Address City/[facility]/ZIP Co de Phone Number [facility] CLIA# [id number] [address] [place] [address] documented in this encounter Visit Diagnoses Not on filedocumented in this encounter Additional Health Concerns Infection Onset Date Last Indicated Resolved Time R/O COVID-19 08/17/2020 08/17/2020 08/24/2021 9:06 PM COUTURE ALTERATIONS DRESSMAKER documented as of this encounter Care Teams Cigar Making Machine Operator Relationship Specialty Start Date End Date Alva Umaña DO PCP - General Family Practice 07/12/19 04/19/21 documented as of this encounter
--- OUTSIDE RECORDS SUMMARY | 2025-01-07 10:18 | XMS_ITS | Encounter Summary ---
Author Organization [facility] Address [address] [place] [address] Phone Care Team Providers Care Hold Worker Name Role Phone Ziggy Greene MD Primary Care Provider [phone] Sasha Wang APRN, CNP Primary Care P rovider Encounter Details Date Type Department Care Team (Late st Contact Info) Description 10/23/2021 [facility] [address] [place] [address] Angel Mills MD [address] [place] [address] Cough, unspecified; Nasal congestion; Headache, unspecified Social [...] SARS-COV-2 BY MOLECULAR Routine 10/22/2021 7:45 AM PACE ANALYST Cough, unspecified Nasal congestion Headache, unspecified documented in this encounter Results * SARS-COV-2 BY MOLECULAR (10/22/2021 7:45 AM PACE ANALYST) SARSCOV2 NOT DETECTED (Referenc e Range for this test is Not Detected) [facility] [address] MARINO ID NOW 10/23/2021 9:19 AM PACE ANALYST [facility] Comment:This test was perfor med by a MOLECULAR, NON-PCR method Other No Phlebotomy Charged / Unknown 10/22/2021 7:45 AM PACE ANALYST 10/23/2021 9:18 AM PACE ANALYST Narrative [facility] - 10/23/2021 9:19 AM PACE ANALYST This test has been authorized by the [...] information for Clinicians can be found at: https://www.fda.gov/media/184227/download Additional information for Patients can be found at: https://www.fda.gov/media/067454/download us Angel Mills MD MICROBIOLOGY - GENERAL ORDERAB LES Final Result [facility] [address] [place] [address] documented in this encounter Visit Diagnoses Diagnosis Cough, unspecified Nasal congestion Other diseases of nasal cavity and sinuses Headache, unspecified documented in this encounter Additional Health Concerns Infection Onset Date Last Indicated Resolved Time COVID - 19 10/22/2021 10/22/2021 11/11/2021 12:1 6 AM PACE ANALYST COVID - 19 Confirmed 05/29/2022 05/29/202206/18/ 022 12:16 AM CDT Assessment Noted Time PHQ-9 Depression Total Score: 9 11/19/19 19 8:06 AM PACE ANALYST documented as of this encounter Care Teams Hold Worker Relationship Specialty Start Date End Date Ziggy Greene MD PCP - General Family Medicine 01/14/19 01/15/22 Sasha Wang APRN, CADDY MASTER [address] [place] [address] PCP - General Advanced Practice Nurse 01/16/22 documented as of this encounter
--- OUTSIDE RECORDS SUMMARY | 2025-01-07 10:18 | XMS_ITS | Clinical Summary ---
Author Organization [facility] Address [address] [place] [address] Phone Care Team Providers Care Line Analyst Name Role Phone Sasha Wang APRN, CNP [...] Encounters Date Type Department Care Team Description 01/07/2025 Telephone [facility] Call Center [address] [place] [address] Sasha Wang APRN, CNP Appointment from Last 3 Months Immunizations Immunization Administration Dates Next Due Covid-19, Mrna, Lnp-s, Pf, 3 0 Mcg/0.3 Ml Dose ([employer]) 09/28/2021 DTAP VACCINE, UNSPECIFIED FORMULATION ,11/24/1997,02/04/1997,12/16,1996 Hepatitis [...] drink = 0.6 oz pur e alcohol) [facility] [employer] Answer Date Recorded In the past 12 months has [employer], gas, oil, or water [employer] threatened to shut off services in your [...] week 10/21/2023 How often do you attend [facility] or episcopal services? Never 10/21/2023 Do you belong to any clubs o r organizations such as nondenominational groups, unions, fraternal or athletic groups, or [...] Total Score - Questions 1-9 10 03/2022 [facility] - Occupational Stress Questionnaire Answer Date Recorded [...] place to sleep or slept in a mcfp (including now)? No 10/21/2023 Education Answer Date [...] 06/03/2024 9:45 AM CDT Plan of Treatment Health Maintenance Due Date [...] patient's age to complete this topic Insurance [facility] Care Teams Line Analyst Relationship Specialty Start Date End Date Sasha Wang, ECHOCARDIOLOGIST, PLUMBING MECHANIC [address] [place] [address] PCP - General Advanced Practice Nurse 01/16/22
[2025-01-07 10:24] LABS: Alanine Aminotransferase 12 U/L (6-35); Albumin Level 3.3 g/dL (3.5-5.1); Alkaline Phosphatase 103 U/L (38-126); Anion Gap 10 mmol/L (4-12); Aspartate Amino Transferase 14 U/L (14-36); Bilirubin,Total 0.1 mg/dL (0.2-1.3); Blood Urea Nitrogen 6 mg/dL (7-17); Calcium 8.3 mg/dL (8.4-10.2); Carbon Dioxide 20 mmol/L (22-30); Chloride 106 mmol/L (98-107); Estimated Glomerular Filt Rate > 60; Glucose 129 mg/dL (65-110); Potassium 3.3 mmol/L (3.4-5.0); Sodium 136 mmol/L (137-145); Uric Acid 6.2 mg/dL (2.5-7.5)
[2025-01-07] MEDS: ACETAMINOPHEN 500 MG TABLET 1000 MG PO (10:31)
[2025-01-07 10:40] LABS: Add Urine Microscopic? YES; Appearance Urine Clear (Clear); Bacteria Urine 1+ /hpf; Bilirubin Urine Negative (Negative); Blood Urine Negative (Negative); Color Urine Yellow (Yellow); Glucose Urine UA 2+ mg/dL (Negative); Ketones Urine Negative (Negative); Leukocyte Esterase Ur 1+ LEU/UL (Negative); Need Manual Microscopic Reviewed; Nitrate Urine Negative (Negative); Non Pathogenic Casts 0-2; Protein Urine Negative (Negative); RBC Urine 0-2 /hpf (0-2); Specific Grav Ur 1.011 (1.001-1.035); Squamous Epithelial Cell Urine Occasional /hpf (Few); Urobilinogen Urine 0.2 mg/dL (<2.0); WBC Urine 0-5 /hpf (0-3); pH Urine 7.5 (5.0-9.0)
[2025-01-07 10:43] LABS: Creatinine Urine 60.5 mg/dL; Total Protein Urine Random 22 mg/dL; Ur Ttl Prot Creatinine Ratio 0.36 mg/mg (0-0.20)
--- NOTE | 2025-01-07 10:57 | PC.NURSE ---
Dr. Ramsey returned page and informed of heart arrhythmia that was audible on NST- otherwise reactive, BP's, and lab results including K+, 2+ glucose in urine and glucose of 129 on CMP. Pt reports she didn't eat breakfast and has only had water this am. Have already discussed foods high in postassium for pt to include in diet to increase K+. MD would like pt to do a 24 hr urine at home. May give work release for the weekend if pt would like.
== END 2025-01-07 11:31 | disposition home or self-care (01) ==
LOC: ANHOBOP 09:41 → ANHOBPP 09:42
PROVIDERS: Visit Provider Obstetrics & Gynecology
DX: O13.9 Gestational [pregnancy-induced] hypertension without significant proteinuria, unspecified trimester (principal); Z3A.00 Weeks of gestation of pregnancy not specified
CPT/HCPCS: 36415; 59025; 80053; 81001; 82570; 84156; 84550; 85025; 87086; 99199; A9270

== ENCOUNTER 2025-01-08 12:31 | Outpatient (CLI) | payer BC, SELFPAY ==
[2025-01-08 12:31] VITALS: BMI 35.9
--- OUTSIDE RECORDS SUMMARY | 2025-01-08 12:40 | XMS_ITS | Clinical Summary ---
Author Organization [facility] [address] [facility] Address [address] [place] [address] Care Team Providers Care Assembler For Puller Over Hand Name Role Phone Unavailable Primary Care Provider [...] COVID-19 VACCINE - EMERGENCY USE AUTHORIZATION, MRNA, [id number](PF) 30 MCG/0.3 ML IM SUSP 10/19/2020,09/27/2020 Influenza [...] Comments Blood Pressure 110/70 10/03/2020 9:04 AM CREDIT CARD ASSOCIATE Pulse 84 12/28/2019 2:55 PM CDT Temperature 36.3 C (97.4 F) 10/19/2019 10:57 AM CREDIT CARD ASSOCIATE Respiratory Rate 17 12/28/2019 2:55 PM CDT Oxygen Saturation 97% 12/28/2019 2:55 PM CDT Inhaled Oxygen Concentration - - Weight 84.2 kg (185 lb 9.6 oz) 10/03/2020 9:04 A M CREDIT CARD ASSOCIATE Height 172.7 cm (5' 8 ) 10/03/2020 9:04 AM CREDIT CARD ASSOCIATE Body Mass Index 28.22 10/03/2020 9:04 AM CREDIT CARD ASSOCIATE Plan of Treatment Health Maintenance Due Date [...] GC, PAP VIAL Routine 10/03/2020 9:23 AM CREDIT CARD ASSOCIATE Encounter for gynecological examination without abnormal finding Screening examination for venereal disease CERV/VAG CYTO AGE BASED SCREEN PAP W CT/NG Routine 10/03/2020 9:23 AM CREDIT CARD ASSOCIATE Encounter for gynecological examination without abnormal finding Screening examination for venereal disease from Last 3 Months or Most Recently Relevant to Health Maintenance Results * CERV/VAG CYTO AGE BASED SCREEN PAP W CT/NG (10/03/2020 9:23 AM CREDIT CARD ASSOCIATE) CASE REPORT Gynecologic Cytology Report Case: [id number] Authorizing Provider: Ana María Austin MD Collected: 10/03/2020 09:23 AM Ordering Location: [facility] Received: 10/03/2020 09:02 PM [employer] - [address] [place] [address] First Screen: Diane Srivastava Rescreen: Milvia Houser Specimen: LB PAP TP PROT, [employer] 10/18/2020 1:40 PM [facility] Specimen Adequacy Satisfactory for evaluation, endocervical/hood sformation zone component present 10/18/2020 1:40 PM CREDIT CARD ASSOCIATE [facility] Paper Bundler Interpretation Negative for intraepithelial lesion or malignancy 10/18/2020 1:40 PM [facility] Paper Bundler Other Findings Fungal organisms morphologically consistent with Deidra species 10/18/2020 1:40 PM CREDIT CARD ASSOCIATE [facility] Paper Bundler Prev Pap Result LSIL 2019 10/18/2020 1:40 PM CREDIT CARD ASSOCIATE [facility] Paper Bundler Educational Note 10/18/2020 1:40 PM CREDIT CARD ASSOCIATE [facility] Comment:The Pap test is a sc reening test used to aid in the detection of cervical cancer and its precursors. It should not be the sole means by which malignant and premalignant lesions are diagnosed. Both false negative and false positive results may occur. Results must be interpreted in the context of historic and current clinical information. EMBEDDED IMAGE 10/18/2020 1:40 PM CREDIT CARD ASSOCIATE [facility] Genital SWAB OF ENDOCERVIX / Unknown Collection / Unknown 10/03/2020 9:23 AM CREDIT CARD ASSOCIATE 10/03/2020 9:02 PM CREDIT CARD ASSOCIATE us Ana María Austin MD PATHOLOGY/CYTOLOGY ORDERABLES Final Result [facility] CLIA# [id number] [place] [address] * CHLAMYDIA AND GC, PAP VIAL (10/03/2020 9:23 AM CREDIT CARD ASSOCIATE) CHLAMYDIA DNA AMPLIFICATION NOT DETECTED Not Detected 10/04/2020 12:49 AM [facility] GC DNA AMPLIFICATION NOT DETECTED Not Detected 10/04/2020 12:49 AM [facility] Genital SWAB OF ENDOCERVIX / Unknown Collection / Unknown 10/03/2020 9:23 AM CREDIT CARD ASSOCIATE 10/03/2020 9:02 PM CREDIT CARD ASSOCIATE us Ana María Austin MD BODY FLUIDS AND STOOLS COM Fin al Result Performing Organization Address City/[facility]/ZIP Co de Phone Number [facility] CLIA# [id number] [place] [address] from Last 3 Months or Most Recently Relevant to Health Maintenance
--- OUTSIDE RECORDS SUMMARY | 2025-01-08 12:40 | XMS_ITS | Clinical Summary ---
Author Organization [facility] Address [address] [place] [address] Phone Care Team Providers Care Tariff Counsel Name Role Phone Sasha Wang APRN, CNP [...] Type Department Care Team Description 01/07/2025 Telephone [facility] Central Call Center [address] [place] [address] Sasha Wang APRN, CNP Appointment from Last 3 Months Immunizations Immunization Administration Dates Next Due Covid-19, Mrna, Lnp-s, Pf, 3 0 Mcg/0.3 Ml Dose ([employer]) 09/28/2021 DTAP VACCINE, UNSPECIFIED FORMULATION ,11/24/1997,02/04/1997,12/16,1996 Hepatitis [...] drink = 0.6 oz pur e alcohol) [facility] [employer] Answer Date Recorded In the past 12 months has [employer], gas, oil, or water [employer] threatened to shut off services in your [...] week 10/21/2023 How often do you attend [facility] or gnosticist services? Never 10/21/2023 Do you belong to any clubs o r organizations such as christian groups, unions, fraternal or athletic groups, or [...] Total Score - Questions 1-9 10 03/2022 [facility] - Occupational Stress Questionnaire Answer Date Recorded [...] place to sleep or slept in a halfway (including now)? No 10/21/2023 Education Answer Date [...] patient's age to complete this topic Insurance [facility] Care Teams Tariff Counsel Relationship Specialty Start Date End Date Sasha Wang, RAIL EQUIPMENT OPERATOR, TRANSMISSION SUPERINTENDENT [address] [place] [address] PCP - General Advanced Practice Nurse 01/16/22
--- OUTSIDE RECORDS SUMMARY | 2025-01-08 12:40 | XMS_ITS | Encounter Summary ---
Author Organization [facility] Address [address] [place] [address] Care Team Providers Care Skein Mercerizing Machine Operator Name Role Phone Alva Umaña Primary Care Provider Encounter Details Date Type Department Care Team (Late st Contact Info) Description 02/16/2019 Lab Requisition [facility] Quantitative Medicine Services [address] [place] [address] [place] [address] [facility] [address] [place] [id number] Social History Tobacco Use Types Packs/Day Years [...] T-SPOT TB Negative 02/19/2019 8:15 AM CDT [facility] [employer] [facility] T-SPOT TB See Scanned Report 02/19/2019 8:15 AM CDT [facility] [employer] [facility] Blood Venipuncture / Unknown 02/16/2019 8:30 AM CDT 02/16/2019 8:30 AM CDT Luis Ceron MD MICROBIOLOGY - GENERAL ORDER SINDHU Final Result Performing Organization Address City/[facility]/ZIP Co de Phone Number [facility] CLIA# [id number] [address] [place] [address] * (ABNORMAL) HEPATITIS B SURFACE AB, QUANT (02/16/2019 8:30 AM CDT) HEPATITIS B SURF AB,QN <4.0 mlU/mL 02/16/2019 2:11 PM CDT [facility] HEPATITIS B SURFACE AB INTERP Non-reacti ve(A) See Interp 02/16/2019 2:11 PM CDT [facility] Blood Venipuncture / Unknown 02/16/2019 8:30 AM CDT 02/16/2019 8:30 AM CDT Narrative [facility] - 02/16/2019 2:11 PM CDT Patient does not have immunity to Hepatitis B virus. This assay is used to determine immune status to Hepatitis B as greater than or equal to 10 mIU/mL as per CDC guidelines (MMWR:vol 55: RR-16, 2006). Luis Ceron MD CHEMISTRY ORDERABLES Final R esult Performing Organization Address City/[facility]/ZIP Co de Phone Number [facility] CLIA# [id number] [address] [place] [facility] [place] [address] documented in this encounter Visit Diagnoses Not on filedocumented in this encounter Additional Health Concerns Infection Onset Date Last Indicated Resolved Time R/O COVID-19 08/17/2020 08/17/2020 08/24/2021 9:06 PM ACCOUNTS RECEIVABLE SUPERVISOR documented as of this encounter Care Teams Skein Mercerizing Machine Operator Relationship Specialty Start Date End Date Alva Umaña DO PCP - General Family Practice 07/12/19 04/19/21 documented as of this encounter
--- OUTSIDE RECORDS SUMMARY | 2025-01-08 12:40 | XMS_ITS | Encounter Summary ---
Author Organization [facility] Address [address] [place] [address] Phone Care Team Providers Care Employee Adviser Name Role Phone Ziggy Greene MD Primary Care Provider [phone] Sasha Wang APRN, CNP Primary Care P rovider Encounter Details Date Type Department Care Team (Late st Contact Info) Description 10/23/2021 [facility] [address] [place] [address] Angel Mills MD [address] [place] [address] Cough, unspecified; Nasal congestion; Headache, [...] SARS-COV-2 BY MOLECULAR Routine 10/22/2021 7:45 AM EMERGENCY OPERATOR Cough, unspecified Nasal congestion Headache, unspecified documented in this encounter Results * SARS-COV-2 BY MOLECULAR (10/22/2021 7:45 AM EMERGENCY OPERATOR) SARSCOV2 NOT DETECTED (Referenc e Range for this test is Not Detected) [facility] MARINO ID NOW 10/23/2021 9:19 AM EMERGENCY OPERATOR [facility] Comment:This test was perfor med by a MOLECULAR, NON-PCR method Other No Phlebotomy Charged / Unknown 10/22/2021 7:45 AM EMERGENCY OPERATOR 10/23/2021 9:18 AM EMERGENCY OPERATOR Narrative [facility] - 10/23/2021 9:19 AM EMERGENCY OPERATOR This test has been authorized by the [...] information for Clinicians can be found at: https://www.fda.gov/media/080125/download Additional information for Patients can be found at: https://www.fda.gov/media/965213/download us Angel Mills MD MICROBIOLOGY - GENERAL ORDERAB LES Final Result [facility] [address] [place] [address] documented in this encounter Visit Diagnoses Diagnosis Cough, unspecified Nasal congestion Other diseases of nasal cavity and sinuses Headache, unspecified documented in this encounter Additional Health Concerns Infection Onset Date Last Indicated Resolved Time COVID - 19 10/22/2021 10/22/2021 11/11/2021 12:1 6 AM EMERGENCY OPERATOR COVID - 19 Confirmed 05/29/2022 05/29/202206/18/ 022 12:16 AM CDT Assessment Noted Time PHQ-9 Depression Total Score: 9 11/19/19 19 8:06 AM EMERGENCY OPERATOR documented as of this encounter Care Teams Employee Adviser Relationship Specialty Start Date End Date Ziggy Greene MD PCP - General Family Medicine 01/14/19 01/15/22 Sasha Wang APRN, BLOCK STACKER [address] [place] [address] PCP - General Advanced Practice Nurse 01/16/22 documented as of this encounter
--- OUTSIDE RECORDS SUMMARY | 2025-01-08 12:40 | XMS_ITS | Encounter Summary ---
Author Organization [facility] Address [address] [place] [address] Phone Care Team Providers Care Machine Shorthand Teacher Name Role Phone Ziggy Greene MD Primary Care Provider [phone] Sasha Wang APRN, CNP Primary Care P rovider Encounter Details Date Type Department Care Team (Late st Contact Info) Description 04/10/2021 [facility] [address] [place] [address] Sandra Thomas APRN, STOREROOM ATTENDANT [address] [place] [address] Social History Tobacco Use Types [...] 0.5(L) >=1.1 AI 04/10/2021 9:55 PM CDT [facility] Blood Venipuncture / Unknown 04/10/2021 9:55 AM CDT 04/10/2021 1:27 PM CDT Narrative [facility] - 04/10/2021 9:55 PM CDT <= 0.8 Negative. No detectable VZV IgG antibody. 0.9 - 1.0 Equivocal >=1.1 Positive Antibody testing was performed by multiplex flow immunoassay on the [employer] platform. us Sandra Thomas HEARING SCREENER, STOREROOM ATTENDANT IMMUNOLOGY ORDERABL ES Final Result [facility] [address] [place] [address], * (ABNORMAL) RUBEOLA (MEASLES) IGG (04/10/2021 9:55 AM CDT) MEASLES AB IGG 0.2(L) >=1.1 AI 04/10/2021 9:55 PM CDT [facility] Blood Venipuncture / Unknown 04/10/2021 9:55 AM CDT 04/10/2021 1:27 PM CDT Narrative [facility] - 04/10/2021 9:55 PM CDT <= 0.8 Negative. No detectable Measles IgG antibody. 0.9 - 1.0 Equivocal >=1.1 Positive Antibody testing was performed by multiplex flow immunoassay on the [employer] platform. us Sandra Thomas APRN, CNP IMMUNOLOGY ORDERABL ES Final Result Performing Organization Address City/[facility] Co de Phone Number [facility] [address] [place] [address], [place] * RUBELLA IMMUNITY IGG (04/10/2021 9:55 AM CDT) RUBELLA IMMUNITY Immune Immune, Invalid 04/10/2021 9:55 PM CDT [facility] Blood Venipuncture / Unknown 04/10/2021 9:55 AM CDT 04/10/2021 1:27 PM CDT Narrative [facility] - 04/10/2021 9:55 PM CDT Antibody testing was performed by multiplex flow immunoassay on the [employer] platform. us Sandra Thomas APRN, CNP CHEMISTRY ORDERABLE S Final Result Performing Organization Address [facility] de Phone Number [facility] [address] [place] [address], [place] * (ABNORMAL) MUMPS IGG (04/10/2021 9:55 AM CDT) Mumps Ab IgG 1.0(L) >=1.1 AI 04/10/2021 9:55 PM CDT [facility] Blood Venipuncture / Unknown 04/10/2021 9:55 AM CDT 04/10/2021 1:27 PM CDT Narrative [facility] - 04/10/2021 9:55 PM CDT <= 0.8 Negative. No detectable Mumps IgG antibody. 0.9 - 1.0 Equivocal >=1.1 Positive Antibody testing was performed by multiplex flow immunoassay on the [employer] platform. us Sandra Thomas APRN, CNP IMMUNOLOGY ORDERABL ES Final Result Performing Organization Address [facility] Co de Phone Number [facility] [address] [place] [address], [place] * HEPATITIS B SURFACE ANTIBODY (HBSAB) (04/10/2021 9:55 AM CDT) HEPATITIS B SURFACE ANTIBODY 19.05 mIU/mL [facility] ARCH [id number] B 04/10/2021 9:44 PM CDT [facility] Comment: Detected Range: >12.00 Individual is considered immune to HBV infection Blood Venipuncture / Unknown 04/10/2021 9:55 AM CDT 04/10/2021 1:27 PM CDT us Sandra Thomas APRN, CNP CHEMISTRY ORDERABLE S Final Result Performing Organization Address [facility] Co de Phone Number [facility] [address] [place] [address], [place] documented in this encounter Visit Diagnoses Not on filedocumented in this encounter Additional Health Concerns Infection Onset Date Last Indicated Resolved Time COVID - 19 10/22/2021 10/22/2021 11/11/2021 12:1 6 AM STUNTMAN COVID - 19 Confirmed 05/29/2022 05/29/2022 022 12:16 AM CDT Assessment Noted Time PHQ-9 Depression Total Score: 9 11/19/19 19 8:06 AM STUNTMAN documented as of this encounter Care Teams Machine Shorthand Teacher Relationship Specialty Start Date End Date Ziggy Greene MD PCP - General Family Medicine 01/14/19 01/15/22 Sasha Wang APRN, TRAVIS [address] [place] [address] PCP - General Advanced Practice Nurse 01/16/22 documented as of this encounter
--- OUTSIDE RECORDS SUMMARY | 2025-01-08 12:40 | XMS_ITS | Encounter Summary ---
Author Organization [facility] Address [address] [place] [address] Phone Care Team Providers Care Auto Detailer Name Role Phone Sasha Wang APRN, CNP Primary Care P rovider Reason for Visit * Reason Onset Date Comments Appointment 01/07/2025 Encounter Details Date Type Department Care Team (Late st Contact Info) Description 01/07/2025 Telephone [facility] Call Center [address] [place] [address] Sasha Wang APRN, TRAVIS [address] [place] [address] Appointment Social History Tobacco Use Types Packs/Day Years Used Date Smoking Tobacco: Never Smokeless Tobacco: Never Alcohol Use Standard Drinks/Week Comments No 0 (1 standard drink = 0.6 oz pur e alcohol) [facility] Utilities Answer Date Recorded In the past 12 months has [employer] electric, gas, oil, or water company threatened [...] week 10/21/2023 How often do you attend [facility] or spiritism services? Never 10/21/2023 Do you belong to any clubs o r organizations such as moravian groups, unions, fraternal or athletic groups, or [...] Total Score - Questions 1-9 10 03/2022 [facility] - [...] documented as of this encounter Care Teams Auto Detailer Relationship Specialty Start Date End Date Sasha Wang APRN, ENGINE WATCHMAN [address] [place] [address] PCP - General Advanced Practice Nurse 01/16/22 documented as of this encounter
[2025-01-08 13:06] LABS: Collection Time Urine 24 HOURS; Total Volume 24 Hour Urine 2500 ml
[2025-01-08 13:07] LABS: Total Volume 24 Hour Urine 2500 ml
[2025-01-08 13:14] LABS: Total Protein Urine 24 Hr 400 mg/24hr (28-141); Total Protein Urine Random 16 mg/dL
[2025-01-08 13:15] LABS: Creatinine Urine 70.1 mg/dL; Patient Weight 236 Lbs; Serum Creat 0.56
[2025-01-08 13:26] LABS: Specific Gravity Ur 1.337
== END 2025-01-08 12:32 | disposition home or self-care (01) ==
PROVIDERS: Visit Provider Obstetrics & Gynecology
DX: O13.9 Gestational [pregnancy-induced] hypertension without significant proteinuria, unspecified trimester (principal); Z3A.00 Weeks of gestation of pregnancy not specified
CPT/HCPCS: 81050; 82575; 84156

== ENCOUNTER 2025-01-13 10:32 | Outpatient (CLI) | payer SELFPAY ==
[2025-01-13] VITALS (9 sets, daily range): BP systolic 129–140; BP diastolic 74–87; PULSE 60–74; RESP 18; TEMP 36.9; O2SAT 98; BMI 36.1
[2025-01-13 11:22] LABS: Basophils Percent Auto 0.2 % (0.2-1.2); Eosinophils Absolute Auto 0.1 K/mm3 (0-0.3); Eosinophils Percent Auto 0.5 % (0-4.4); Hematocrit 33.6 % (37.0-47.0); Hemoglobin 11.2 g/dL (12.0-15.0); Immature Granulocyte Absolute 0.03 K/mm3 (0.00-0.031); Immature Granulocyte Percent A 0.3 % (0-0.5); Lymphocytes Absolute Auto 1.54 K/mm3 (0.9-3.2); Lymphocytes Percent Auto 14.5 % (18.3-44.2); Mean Corpuscular HGB Conc 33.3 g/dl (32-36); Mean Platelet Volume 9.5 fl (7.4-10.4); Monocytes Absolute Auto 0.5 K/mm3 (0.1-0.6); Monocytes Percent Auto 4.2 % (2.6-8.5); Neutrophils Absolute Auto 8.5 K/mm3 (1.3-6.7); Neutrophils Percent Auto 80.3 % (45.5-73.1); Platelet Count Result 350 k/mm3 (150-375); White Blood Count 10.6 K/mm3 (4.5-10.0)
--- OUTSIDE RECORDS SUMMARY | 2025-01-13 11:24 | XMS_ITS | Encounter Summary ---
Author Organization [facility] Address [address] [place] [address] Phone Care Team Providers Care Acquisitions Assistant Name Role Phone Ziggy Greene MD Primary Care Provider [phone] Sasha Wang APRN, CNP Primary Care P rovider Encounter Details Date Type Department Care Team (Late st Contact Info) Description 10/23/2021 [facility] [address] [place] [address] Angel Mills MD [address] [place] [address] Cough, unspecified; Nasal congestion; Headache, [...] SARS-COV-2 BY MOLECULAR Routine 10/22/2021 7:45 AM LICENSING COORDINATOR Cough, unspecified Nasal congestion Headache, unspecified documented in this encounter Results * SARS-COV-2 BY MOLECULAR (10/22/2021 7:45 AM LICENSING COORDINATOR) SARSCOV2 NOT DETECTED (Referenc e Range for this test is Not Detected) [facility] ID NOW 10/23/2021 9:19 AM LICENSING COORDINATOR [facility] Comment:This test was perfor med by a MOLECULAR, NON-PCR method Other No Phlebotomy Charged / Unknown 10/22/2021 7:45 AM LICENSING COORDINATOR 10/23/2021 9:18 AM LICENSING COORDINATOR Narrative [facility] - 10/23/2021 9:19 AM LICENSING COORDINATOR This test has been authorized by the [...] information for Clinicians can be found at: https://www.fda.gov/media/716605/download Additional information for Patients can be found at: https://www.fda.gov/media/330670/download us Angel Mills MD MICROBIOLOGY - GENERAL ORDERAB LES Final Result [facility] [address] [place] [address] documented in this encounter Visit Diagnoses Diagnosis Cough, unspecified Nasal congestion Other diseases of nasal cavity and sinuses Headache, unspecified documented in this encounter Additional Health Concerns Infection Onset Date Last Indicated Resolved Time COVID - 19 10/22/2021 10/22/2021 11/11/2021 12:1 6 AM LICENSING COORDINATOR COVID - 19 Confirmed 05/29/2022 05/29/202206/18/ 022 12:16 AM CDT Assessment Noted Time PHQ-9 Depression Total Score: 9 11/19/19 19 8:06 AM LICENSING COORDINATOR documented as of this encounter Care Teams Acquisitions Assistant Relationship Specialty Start Date End Date Ziggy Greene MD PCP - General Family Medicine 01/14/19 01/15/22 Sasha Wang APRN, ASTRONAUT MISSION SPECIALIST [address] [place] [address] PCP - General Advanced Practice Nurse 01/16/22 documented as of this encounter
--- OUTSIDE RECORDS SUMMARY | 2025-01-13 11:25 | XMS_ITS | Encounter Summary ---
Author Organization [facility] Address [address] [place] [address] Care Team Providers Care Structural Metal Fabricator Apprentice Name Role Phone Alva Umaña Primary Care Provider [phone] Encounter Details Date Type Department Care Team (Late st Contact Info) Description 02/16/2019 Lab Requisition [facility] Services [address] [place] [address] [place] [address] [facility] [address] [place] [phone] Social History Tobacco Use Types Packs/Day Years [...] T-SPOT TB Negative 02/19/2019 8:15 AM CDT [facility] [employer] SERVICES [facility] T-SPOT TB See Scanned Report 02/19/2019 8:15 AM CDT [facility] [employer] [facility] Blood Venipuncture / Unknown 02/16/2019 8:30 AM CDT 02/16/2019 8:30 AM CDT Luis Ceron MD MICROBIOLOGY - GENERAL ORDER SINDHU Final Result Performing Organization Address City/[facility]/ZIP Co de Phone Number [facility] CLIA# [id number] [address] [place] [address] * (ABNORMAL) HEPATITIS B SURFACE AB, QUANT (02/16/2019 8:30 AM CDT) HEPATITIS B SURF AB,QN <4.0 mlU/mL 02/16/2019 2:11 PM CDT [facility] HEPATITIS B SURFACE AB INTERP Non-reacti ve(A) See Interp 02/16/2019 2:11 PM CDT [facility] Blood Venipuncture / Unknown 02/16/2019 8:30 AM CDT 02/16/2019 8:30 AM CDT Narrative [facility] - 02/16/2019 2:11 PM CDT Patient does not have immunity to Hepatitis B virus. This assay is used to determine immune status to Hepatitis B as greater than or equal to 10 mIU/mL as per CDC guidelines (MMWR:vol 55: RR-16, 2006). Luis Ceron MD CHEMISTRY ORDERABLES Final R esult Performing Organization Address City/[facility]/ZIP Co de Phone Number [facility] CLIA# [id number] [address] [facility] [place] [address] documented in this encounter Visit Diagnoses Not on filedocumented in this encounter Additional Health Concerns Infection Onset Date Last Indicated Resolved Time R/O COVID-19 08/17/2020 08/17/2020 08/24/2021 9:06 PM GAS MASK ASSEMBLER documented as of this encounter Care Teams Structural Metal Fabricator Apprentice Relationship Specialty Start Date End Date Alva Umaña DO PCP - General Family Practice 07/12/19 04/19/21 documented as of this encounter
--- OUTSIDE RECORDS SUMMARY | 2025-01-13 11:25 | XMS_ITS | Clinical Summary ---
Author Organization [facility] Address [address] [place] [address] Phone Care Team Providers Care Assembler Body Name Role Phone Sasha Wang APRN, CNP [...] Type Department Care Team Description 01/07/2025 Telephone [facility] Central Call Center [address] [place] [address] Sasha Wang APRN, CNP Appointment from Last 3 Months Immunizations Immunization Administration Dates Next Due Covid-19, Mrna, Lnp-s, Pf, 3 0 Mcg/0.3 Ml Dose (TheDigitel) 09/28/2021 DTAP VACCINE, UNSPECIFIED FORMULATION ,11/24/1997,02/04/1997,12/16,1996 Hepatitis [...] drink = 0.6 oz pur e alcohol) [facility] Answer Date Recorded In the past 12 months has [employer], gas, oil, or water [employer] threatened to shut off services in your [...] week 10/21/2023 How often do you attend [facility] or [facility]ahai services? Never 10/21/2023 Do you belong to any clubs o r organizations such as mormonism groups, unions, fraternal or athletic groups, or [...] Total Score - Questions 1-9 10 03/2022 [facility] - Occupational Stress Questionnaire Answer [...] place to sleep or slept in a fdc (including now)? No 10/21/2023 Education Answer Date [...] patient's age to complete this topic Insurance [facility] Care Teams Assembler Body Relationship Specialty Start Date End Date Sasha Wang, DIRECTOR PROCESS IMPROVEMENT, TURRET LATHE SET UP OPERATOR [address] [place] [address] PCP - General Advanced Practice Nurse 01/16/22
--- OUTSIDE RECORDS SUMMARY | 2025-01-13 11:25 | XMS_ITS | Clinical Summary ---
Author Organization [facility] [address] [facility] Address [address] [place] [address] Care Team Providers Care Manager Of Disaster Recovery Name Role Phone Unavailable Primary Care Provider [...] COVID-19 VACCINE - EMERGENCY USE AUTHORIZATION, MRNA, [id number](PF) 30 MCG/0.3 ML IM SUSP 10/19/2020,09/27/2020 Influenza [...] Comments Blood Pressure 110/70 10/03/2020 9:04 AM E COMMERCE MERCHANT Pulse 84 12/28/2019 2:55 PM CDT Temperature 36.3 C (97.4 F) 10/19/2019 10:57 AM E COMMERCE MERCHANT Respiratory Rate 17 12/28/2019 2:55 PM CDT Oxygen Saturation 97% 12/28/2019 2:55 PM CDT Inhaled Oxygen Concentration - - Weight 84.2 kg (185 lb 9.6 oz) 10/03/2020 9:04 A M E COMMERCE MERCHANT Height 172.7 cm (5' 8 ) 10/03/2020 9:04 AM E COMMERCE MERCHANT Body Mass Index 28.22 10/03/2020 9:04 AM E COMMERCE MERCHANT Plan of Treatment Health Maintenance Due Date [...] GC, PAP VIAL Routine 10/03/2020 9:23 AM E COMMERCE MERCHANT Encounter for gynecological examination without abnormal finding Screening examination for venereal disease CERV/VAG CYTO AGE BASED SCREEN PAP W CT/NG Routine 10/03/2020 9:23 AM E COMMERCE MERCHANT Encounter for gynecological examination without abnormal finding Screening examination for venereal disease from Last 3 Months or Most Recently Relevant to Health Maintenance Results * CERV/VAG CYTO AGE BASED SCREEN PAP W CT/NG (10/03/2020 9:23 AM E COMMERCE MERCHANT) CASE REPORT Gynecologic Cytology Report Case: [id number] Authorizing Provider: Ana Maíra Austin MD Collected: 10/03/2020 09:23 AM Ordering Location: [facility] Received: 10/03/2020 09:02 PM [employer] - [address] [place] [address] First Screen: Diane Srivastava Rescreen: Milvia Houser Specimen: LB PAP TP PROT, Endocervix 10/18/2020 1:40 PM [facility] Specimen Adequacy Satisfactory for evaluation, endocervical/hood sformation zone component present 10/18/2020 1:40 PM E COMMERCE MERCHANT [facility] Case Consultant Interpretation Negative for intraepithelial lesion or malignancy 10/18/2020 1:40 PM [facility] Case Consultant Other Findings Fungal organisms morphologically consistent with Deidra species 10/18/2020 1:40 PM E COMMERCE MERCHANT [facility] Case Consultant Prev Pap Result LSIL 2019 10/18/2020 1:40 PM E COMMERCE MERCHANT [facility] Case Consultant Educational Note 10/18/2020 1:40 PM E COMMERCE MERCHANT [facility] Comment:The Pap test is [...] clinical information. EMBEDDED IMAGE 10/18/2020 1:40 PM E COMMERCE MERCHANT [facility] Genital SWAB OF ENDOCERVIX / Unknown Collection / Unknown 10/03/2020 9:23 AM E COMMERCE MERCHANT 10/03/2020 9:02 PM E COMMERCE MERCHANT us Ana María Austin MD PATHOLOGY/CYTOLOGY ORDERABLES Final Result [facility] CLIA# [id number] [place] [address] * CHLAMYDIA AND GC, PAP VIAL (10/03/2020 9:23 AM E COMMERCE MERCHANT) CHLAMYDIA DNA AMPLIFICATION NOT DETECTED Not Detected 10/04/2020 12:49 AM [facility] GC DNA AMPLIFICATION NOT DETECTED Not Detected 10/04/2020 12:49 AM [facility] Genital SWAB OF ENDOCERVIX / Unknown Collection / Unknown 10/03/2020 9:23 AM E COMMERCE MERCHANT 10/03/2020 9:02 PM E COMMERCE MERCHANT us Ana María Austin MD BODY FLUIDS AND STOOLS COM Fin al Result Performing Organization Address City/[facility]/ZIP Co de Phone Number [facility] CLIA# [id number] [place] [address] from Last 3 Months or Most Recently Relevant to Health Maintenance
--- OUTSIDE RECORDS SUMMARY | 2025-01-13 11:25 | XMS_ITS | Encounter Summary ---
Author Organization [facility] Address [address] [place] [address] Phone Care Team Providers Care Director Clinical Operations Name Role Phone Ziggy Greene MD Primary Care Provider [phone] Sasha Wang APRN, CNP Primary Care P rovider Encounter Details Date Type Department Care Team (Late st Contact Info) Description 04/10/2021 [facility] [address] [place] [address] Sandra Thomas APRN, ENGLISH TUTOR [address] [place] [address] Social History Tobacco Use Types [...] 0.5(L) >=1.1 AI 04/10/2021 9:55 PM CDT [facility] Blood Venipuncture / Unknown 04/10/2021 9:55 AM CDT 04/10/2021 1:27 PM CDT Narrative [facility] - 04/10/2021 9:55 PM CDT <= 0.8 Negative. No detectable VZV IgG antibody. 0.9 - 1.0 Equivocal >=1.1 Positive Antibody testing was performed by multiplex flow immunoassay on the BioPlex platform. us Sandra Thomas COMMUNICATIONS LEAD, ENGLISH TUTOR IMMUNOLOGY ORDERABL ES Final Result [facility] [address] [place] [address], * (ABNORMAL) RUBEOLA (MEASLES) IGG (04/10/2021 9:55 AM CDT) MEASLES AB IGG 0.2(L) >=1.1 AI 04/10/2021 9:55 PM CDT [facility] Blood Venipuncture / Unknown 04/10/2021 9:55 AM CDT 04/10/2021 1:27 PM CDT Narrative [facility] - 04/10/2021 9:55 PM CDT <= 0.8 Negative. No detectable Measles IgG antibody. 0.9 - 1.0 Equivocal >=1.1 Positive Antibody testing was performed by multiplex flow immunoassay on the BioPlex platform. us Sandra Thomas APRN, CNP IMMUNOLOGY ORDERABL ES Final Result Performing Organization Address City/[facility] Co de Phone Number [facility] [address] [place] [address], [place] * RUBELLA IMMUNITY IGG (04/10/2021 9:55 AM CDT) RUBELLA IMMUNITY Immune Immune, Invalid 04/10/2021 9:55 PM CDT [facility] Blood Venipuncture / Unknown 04/10/2021 9:55 AM CDT 04/10/2021 1:27 PM CDT Narrative [facility] - 04/10/2021 9:55 PM CDT Antibody testing was performed by multiplex flow immunoassay on the BioPlex platform. us Sandra Thomas APRN, CNP CHEMISTRY ORDERABLE S Final Result Performing Organization Address [facility] de Phone Number [facility] [address] [place] [address], [place] * (ABNORMAL) MUMPS IGG (04/10/2021 9:55 AM CDT) Mumps Ab IgG 1.0(L) >=1.1 AI 04/10/2021 9:55 PM CDT [facility] Blood Venipuncture / Unknown 04/10/2021 9:55 AM CDT 04/10/2021 1:27 PM CDT Narrative [facility] - 04/10/2021 9:55 PM CDT <= 0.8 Negative. No detectable Mumps IgG antibody. 0.9 - 1.0 Equivocal >=1.1 Positive Antibody testing was performed by multiplex flow immunoassay on the Spot Influence platform. us Sandra Thomas APRN, CNP IMMUNOLOGY ORDERABL ES Final Result Performing Organization Address [facility] Co de Phone Number [facility] [address] [place] [address], [place] * HEPATITIS B SURFACE ANTIBODY (HBSAB) (04/10/2021 9:55 AM CDT) HEPATITIS B SURFACE ANTIBODY 19.05 mIU/mL [facility] ARCH [id number] 04/10/2021 9:44 PM CDT [facility] Comment: Detected Range: >12.00 Individual is considered immune to HBV infection Blood Venipuncture / Unknown 04/10/2021 9:55 AM CDT 04/10/2021 1:27 PM CDT us Sandra Thomas APRN, CNP CHEMISTRY ORDERABLE S Final Result Performing Organization Address [facility] Co de Phone Number [facility] [address] [place] [address], [place] documented in this encounter Visit Diagnoses Not on filedocumented in this encounter Additional Health Concerns Infection Onset Date Last Indicated Resolved Time COVID - 19 10/22/2021 10/22/2021 11/11/2021 12:1 6 AM BLACK TOPPER COVID - 19 Confirmed 05/29/2022 05/29/2022 022 12:16 AM CDT Assessment Noted Time PHQ-9 Depression Total Score: 9 11/19/19 19 8:06 AM BLACK TOPPER documented as of this encounter Care Teams Director Clinical Operations Relationship Specialty Start Date End Date Ziggy Greene MD PCP - General Family Medicine 01/14/19 01/15/22 Sasha Wang APRN, TRAVIS [address] [place] [address] PCP - General Advanced Practice Nurse 01/16/22 documented as of this encounter
[2025-01-13 11:29] LABS: Add Urine Microscopic? YES; Appearance Urine Clear (Clear); Bacteria Urine None Seen /hpf; Bilirubin Urine Negative (Negative); Blood Urine Negative (Negative); Color Urine Yellow (Yellow); Glucose Urine UA Negative (Negative); Ketones Urine Negative (Negative); Leukocyte Esterase Ur Negative LEU/UL (Negative); Nitrate Urine Negative (Negative); Non Pathogenic Casts 0-2; Protein Urine Trace mg/dL (Negative); RBC Urine 0-2 /hpf (0-2); Specific Grav Ur 1.007 (1.001-1.035); Squamous Epithelial Cell Urine Occasional /hpf (Few); Urobilinogen Urine 0.2 mg/dL (<2.0); WBC Urine 0-5 /hpf (0-3); pH Urine 7.5 (5.0-9.0)
[2025-01-13 11:34] LABS: Alanine Aminotransferase 11 U/L (6-35); Albumin Level 3.3 g/dL (3.5-5.1); Alkaline Phosphatase 123 U/L (38-126); Anion Gap 9 mmol/L (4-12); Aspartate Amino Transferase 15 U/L (14-36); Bilirubin,Total 0.2 mg/dL (0.2-1.3); Blood Urea Nitrogen 5 mg/dL (7-17); Calcium 8.8 mg/dL (8.4-10.2); Carbon Dioxide 23 mmol/L (22-30); Chloride 105 mmol/L (98-107); Estimated Glomerular Filt Rate > 60; Glucose 89 mg/dL (65-110); Potassium 4.1 mmol/L (3.4-5.0); Sodium 137 mmol/L (137-145); Uric Acid 5.8 mg/dL (2.5-7.5)
[2025-01-13 12:14] LABS: Creatinine Urine 45.7 mg/dL; Total Protein Urine Random 28 mg/dL; Ur Ttl Prot Creatinine Ratio 0.61 mg/mg (0-0.20)
--- NOTE | 2025-01-13 12:46 | PC.NURSE ---
Dr. Colvin informed of reactive NST, BP's, and lab results. Pt to continue checking BP's at home and call him if she gets 2 BP's in a row with either SBP 150 or greater or DBP 100 or greater.
== END 2025-01-13 12:55 | disposition home or self-care (01) ==
LOC: ANHOBOP 10:37 → ANHOBPP 10:37
PROVIDERS: Visit Provider Obstetrics & Gynecology
DX: O13.9 Gestational [pregnancy-induced] hypertension without significant proteinuria, unspecified trimester (principal); Z3A.00 Weeks of gestation of pregnancy not specified
CPT/HCPCS: 36415; 59025; 80053; 81001; 82570; 84156; 84550; 85025; 99199

== ENCOUNTER 2025-01-16 21:16 | Observation (INO) | payer SELFPAY ==
--- OUTSIDE RECORDS SUMMARY | 2025-01-16 21:24 | XMS_ITS | Clinical Summary ---
Author Organization [facility] Address [address] [place] [address] Phone Care Team Providers Care Storage Brine Worker Name Role Phone Sasha Wang APRN, CNP [...] Type Department Care Team Description 01/07/2025 Telephone [facility] Central Call Center [address] [place] [address] Sasha Wang APRN, CNP Appointment from Last 3 Months Immunizations Immunization Administration Dates Next Due Covid-19, Mrna, Lnp-s, Pf, 3 0 Mcg/0.3 Ml Dose ([employer]) 09/28/2021 DTAP VACCINE, UNSPECIFIED FORMULATION ,11/24/1997,02/04/1997,12/16,1996 Hepatitis [...] drink = 0.6 oz pur e alcohol) [facility] [employer] Answer Date Recorded In the past 12 months has [employer], gas, oil, or water [employer] threatened to shut off services in your [...] week 10/21/2023 How often do you attend [facility] or [employer] services? Never 10/21/2023 Do you belong to any clubs o r organizations such as sikh groups, unions, fraternal or athletic groups, or [...] Total Score - Questions 1-9 10 03/2022 [facility] - Occupational Stress Questionnaire Answer Date [...] place to sleep or slept in a group home (including now)? No 10/21/2023 Education Answer [...] patient's age to complete this topic Insurance [facility] Care Teams Storage Brine Worker Relationship Specialty Start Date End Date Sasha Wang, ROLL EDGE MACHINE OPERATOR, CUSTOMER EXPERIENCE RETAIL CLERK [address] [place] [address] PCP - General Advanced Practice Nurse 01/16/22
--- OUTSIDE RECORDS SUMMARY | 2025-01-16 21:24 | XMS_ITS | Clinical Summary ---
Author Organization [facility] [address] [facility] Address [address] [place] [address] Care Team Providers Care Public Safety Director Name Role Phone Unavailable Primary Care Provider [...] COVID-19 VACCINE - EMERGENCY USE AUTHORIZATION, MRNA, [id number](PF) 30 MCG/0.3 ML IM SUSP 10/19/2020,09/27/2020 Influenza [...] Comments Blood Pressure 110/70 10/03/2020 9:04 AM UNDER WATER ASSISTANT Pulse 84 12/28/2019 2:55 PM CDT Temperature 36.3 C (97.4 F) 10/19/2019 10:57 AM UNDER WATER ASSISTANT Respiratory Rate 17 12/28/2019 2:55 PM CDT Oxygen Saturation 97% 12/28/2019 2:55 PM CDT Inhaled Oxygen Concentration - - Weight 84.2 kg (185 lb 9.6 oz) 10/03/2020 9:04 A M UNDER WATER ASSISTANT Height 172.7 cm (5' 8 ) 10/03/2020 9:04 AM UNDER WATER ASSISTANT Body Mass Index 28.22 10/03/2020 9:04 AM UNDER WATER ASSISTANT Plan of Treatment Health Maintenance Due Date Last Done Comments HEPATITIS B VACCINES (1 of 3 - 19+ 3-dose series) 2015 HPV/Cotest (21-29) 2017 CERVICAL CANCER SCREENING 10/03/2023 PAP SMEAR 10/03/2023 10/03/2020, 07/13, 07/19/2019 PAP SMEAR 10/03/2023 10/03/2020, 07/13, 07/19/2019 INFLUENZA VACCINE (#1) 2024 , 07/14/2020, 06/29/2019, Additional history exists COVID-19 Vaccine ( - 2023- season) 2024 10/19/2020, 09/27/2020 DTAP/TDAP/TD VACCINES (2 [...] GC, PAP VIAL Routine 10/03/2020 9:23 AM UNDER WATER ASSISTANT Encounter for gynecological examination without abnormal finding Screening examination for venereal disease CERV/VAG CYTO AGE BASED SCREEN PAP W CT/NG Routine 10/03/2020 9:23 AM UNDER WATER ASSISTANT Encounter for gynecological examination without abnormal finding Screening examination for venereal disease from Last 3 Months or Most Recently Relevant to Health Maintenance Results * CERV/VAG CYTO AGE BASED SCREEN PAP W CT/NG (10/03/2020 9:23 AM UNDER WATER ASSISTANT) CASE REPORT Gynecologic Cytology Report Case: [id number] Authorizing Provider: Ana María Austin MD Collected: 10/03/2020 09:23 AM Ordering Location: [facility] Received: 10/03/2020 09:02 PM [employer] - [id number] [facility] First Screen: Diane Srivastava Rescreen: Milvia Houser Specimen: LB PAP TP PROT, Endocervix 10/18/2020 1:40 PM UNDER WATER ASSISTANT [facility] Telephone Sex Worker Specimen Adequacy Satisfactory for evaluation, endocervical/trans formation zone component present 10/18/2020 1:40 PM UNDER WATER ASSISTANT [facility] Interpretation Negative for intraepithelial lesion or malignancy 10/18/2020 1:40 PM UNDER WATER ASSISTANT [facility] Verified by Milvia Houser on 10/18/2020 at 1340 UNDER WATER ASSISTANT Telephone Sex Worker Other Findings Fungal organisms morphologically consistent with Deidra species 10/18/2020 1:40 PM UNDER WATER ASSISTANT [facility] Telephone Sex Worker Prev Pap Result LSIL 2019 10/18/2020 1:40 PM UNDER WATER ASSISTANT [facility] Educational Note 10/18/2020 1:40 PM UNDER WATER ASSISTANT [facility] Comment:The Pap test is a sc reening test used to aid in the detection of cervical cancer and its precursors. It should not be the sole means by which malignant and premalignant lesions are diagnosed. Both false negative and false positive results may occur. Results must be interpreted in the context of historic and current clinical information. EMBEDDED IMAGE 10/18/2020 1:40 PM [facility] Genital SWAB OF ENDOCERVIX / Unknown Collection / Unknown 10/03/2020 9:23 AM UNDER WATER ASSISTANT 10/03/2020 9:02 PM UNDER WATER ASSISTANT us Ana María Austin MD PATHOLOGY/CYTOLOGY ORDERABLES Final Result [facility] CLIA# [id number] [place] [address] * CHLAMYDIA AND GC, PAP VIAL (10/03/2020 9:23 AM UNDER WATER ASSISTANT) CHLAMYDIA DNA AMPLIFICATION NOT DETECTED Not Detected 10/04/2020 12:49 AM [facility] GC DNA AMPLIFICATION NOT DETECTED Not Detected 10/04/2020 12:49 AM [facility] Genital SWAB OF ENDOCERVIX / Unknown Collection / Unknown 10/03/2020 9:23 AM UNDER WATER ASSISTANT 10/03/2020 9:02 PM UNDER WATER ASSISTANT us Ana María Austin MD BODY FLUIDS AND STOOLS COM Fin al Result Performing Organization Address City/[facility]/ZIP Co de Phone Number [facility] CLIA# [id number] [place] [address] from Last 3 Months or Most Recently Relevant to Health Maintenance
--- OUTSIDE RECORDS SUMMARY | 2025-01-16 21:24 | XMS_ITS | Encounter Summary ---
Author Organization [facility] Address [address] [place] [address] Phone Care Team Providers Care Nurse Esthetician Name Role Phone Ziggy Greene MD Primary Care Provider [phone] Sasha Wang APRN, CNP Primary Care P rovider Encounter Details Date Type Department Care Team (Late st Contact Info) Description 04/10/2021 [facility] [address] [place] [address] Sandra Thomas APRN, MENTALLY RETARDED TEACHER [address] [place] [address] Social History Tobacco Use Types [...] 0.5(L) >=1.1 AI 04/10/2021 9:55 PM CDT [facility] Blood Venipuncture / Unknown 04/10/2021 9:55 AM CDT 04/10/2021 1:27 PM CDT Narrative [facility] - 04/10/2021 9:55 PM CDT <= 0.8 Negative. No detectable VZV IgG antibody. 0.9 - 1.0 Equivocal >=1.1 Positive Antibody testing was performed by multiplex flow immunoassay on the BioPlex platform. us Sandra Thomas SALES CONTRACT ADMINISTRATOR, MENTALLY RETARDED TEACHER IMMUNOLOGY ORDERABL ES Final Result [facility] [address] [place] [address], * (ABNORMAL) RUBEOLA (MEASLES) IGG (04/10/2021 9:55 AM CDT) MEASLES AB IGG 0.2(L) >=1.1 AI 04/10/2021 9:55 PM CDT [facility] Blood Venipuncture / Unknown 04/10/2021 9:55 AM CDT 04/10/2021 1:27 PM CDT Narrative [facility] - 04/10/2021 9:55 PM CDT <= 0.8 Negative. No detectable Measles IgG antibody. 0.9 - 1.0 Equivocal >=1.1 Positive Antibody testing was performed by multiplex flow immunoassay on the BioPlex platform. us Sandra Thomas APRN, CNP IMMUNOLOGY ORDERABL ES Final Result Performing Organization Address City/[facility] Co de Phone Number [facility] [address] [place] [address], [place] * RUBELLA IMMUNITY IGG (04/10/2021 9:55 AM CDT) RUBELLA IMMUNITY Immune Immune, Invalid 04/10/2021 9:55 PM CDT [facility] Blood Venipuncture / Unknown 04/10/2021 9:55 AM CDT 04/10/2021 1:27 PM CDT Narrative [facility] - 04/10/2021 9:55 PM CDT Antibody testing was performed by multiplex flow immunoassay on the BioPlex platform. us Sandra Thomas APRN, CNP CHEMISTRY ORDERABLE S Final Result Performing Organization Address [facility] de Phone Number [facility] [address] [place] [address], [place] * (ABNORMAL) MUMPS IGG (04/10/2021 9:55 AM CDT) Mumps Ab IgG 1.0(L) >=1.1 AI 04/10/2021 9:55 PM CDT [facility] Blood Venipuncture / Unknown 04/10/2021 9:55 AM CDT 04/10/2021 1:27 PM CDT Narrative [facility] - 04/10/2021 9:55 PM CDT <= 0.8 Negative. No detectable Mumps IgG antibody. 0.9 - 1.0 Equivocal >=1.1 Positive Antibody testing was performed by multiplex flow immunoassay on the Odoo (formerly OpenERP) platform. us Sandra Thomas APRN, CNP IMMUNOLOGY ORDERABL ES Final Result Performing Organization Address [facility] Co de Phone Number [facility] [address] [place] [address], [place] * HEPATITIS B SURFACE ANTIBODY (HBSAB) (04/10/2021 9:55 AM CDT) HEPATITIS B SURFACE ANTIBODY 19.05 mIU/mL [facility] ARCH [id number] 04/10/2021 9:44 PM CDT [facility] Comment: Detected Range: >12.00 Individual is considered immune to HBV infection Blood Venipuncture / Unknown 04/10/2021 9:55 AM CDT 04/10/2021 1:27 PM CDT us Sandra Thomas APRN, CNP CHEMISTRY ORDERABLE S Final Result Performing Organization Address [facility] Co de Phone Number [facility] [address] [place] [address], [place] documented in this encounter Visit Diagnoses Not on filedocumented in this encounter Additional Health Concerns Infection Onset Date Last Indicated Resolved Time COVID - 19 10/22/2021 10/22/2021 11/11/2021 12:1 6 AM SENIOR ENVIRONMENTAL SCIENTIST COVID - 19 Confirmed 05/29/2022 05/29/2022 022 12:16 AM CDT Assessment Noted Time PHQ-9 Depression Total Score: 9 11/19/19 19 8:06 AM SENIOR ENVIRONMENTAL SCIENTIST documented as of this encounter Care Teams Nurse Esthetician Relationship Specialty Start Date End Date Ziggy Greene MD PCP - General Family Medicine 01/14/19 01/15/22 Sasha Wang APRN, TRAVIS [address] [place] [address] PCP - General Advanced Practice Nurse 01/16/22 documented as of this encounter
--- OUTSIDE RECORDS SUMMARY | 2025-01-16 21:24 | XMS_ITS | Encounter Summary ---
Author Organization [facility] Address [address] [place] [address] Phone Care Team Providers Care Billboard Mechanic Name Role Phone Ziggy Greene MD Primary Care Provider [phone] Sasha Wang APRN, CNP Primary Care P rovider Encounter Details Date Type Department Care Team (Late st Contact Info) Description 10/23/2021 [facility] [address] [place] [address] Angel Mills MD [address] [place] [address] Cough, unspecified; Nasal congestion; Headache, [...] SARS-COV-2 BY MOLECULAR Routine 10/22/2021 7:45 AM SUPERVISOR CEMETERY WORKERS Cough, unspecified Nasal congestion Headache, unspecified documented in this encounter Results * SARS-COV-2 BY MOLECULAR (10/22/2021 7:45 AM SUPERVISOR CEMET[employer] WORKERS) SARSCOV2 NOT DETECTED (Referenc e Range for this test is Not Detected) [facility]INO ID NOW 10/23/2021 9:19 AM SUPERVISOR CEMETERY WORKERS [facility] Comment:This test was perfor med by a MOLECULAR, NON-PCR method Other No Phlebotomy Charged / Unknown 10/22/2021 7:45 AM SUPERVISOR CEMET[employer] WORKERS 10/23/2021 9:18 AM SUPERVISOR C[employer]ET[employer] WORKERS Narrative [facility] - 10/23/2021 9:19 AM SUPERVISOR CEMETERY WORKERS This test has been authorized by the [...] information for Clinicians can be found at: https://www.fda.gov/media/668351/download Additional information for Patients can be found at: https://www.fda.gov/media/205456/download us Angel Mills MD MICROBIOLOGY - GENERAL ORDERAB LES Final Result [facility] [address] [place] [address] documented in this encounter Visit Diagnoses Diagnosis Cough, unspecified Nasal congestion Other diseases of nasal cavity and sinuses Headache, unspecified documented in this encounter Additional Health Concerns Infection Onset Date Last Indicated Resolved Time COVID - 19 10/22/2021 10/22/2021 11/11/2021 12:1 6 AM SUPERVISOR CEMET[employer] WORKERS COVID - 19 Confirmed 05/29/2022 05/29/202206/18/ 022 12:16 AM CDT Assessment Noted Time PHQ-9 Depression Total Score: 9 11/19/19 19 8:06 AM SUPERVISOR CEMET[employer] WORKERS documented as of this encounter Care Teams Billboard Mechanic Relationship Specialty Start Date End Date Ziggy Greene MD PCP - General Family Medicine 01/14/19 01/15/22 Sasha Wang APRN, MANAGER BEVERAGE [address] [place] [address] PCP - General Advanced Practice Nurse 01/16/22 documented as of this encounter
--- OUTSIDE RECORDS SUMMARY | 2025-01-16 21:24 | XMS_ITS | Encounter Summary ---
Author Organization [facility] Address [address] [place] [address] Care Team Providers Care Mechanical Design Engineer Facilities Name Role Phone Alva Umaña Primary Care Provider [phone] Encounter Details Date Type Department Care Team (Late st Contact Info) Description 02/16/2019 Lab Requisition [facility] [employer] [facility] [address] [place] [address] [place] [address] [facility] [address] [place] [phone] Social History Tobacco Use Types Packs/Day Years [...] T-SPOT TB Negative 02/19/2019 8:15 AM CDT [facility] [employer] [facility] T-SPOT TB See Scanned Report 02/19/2019 8:15 AM CDT [facility] [employer] [facility] Blood Venipuncture / Unknown 02/16/2019 8:30 AM CDT 02/16/2019 8:30 AM CDT Luis Ceron MD MICROBIOLOGY - GENERAL ORDER SINDHU Final Result Performing Organization Address City/[facility]/ZIP Co de Phone Number [facility] CLIA# [id number] [place] [address] * (ABNORMAL) HEPATITIS B SURFACE AB, QUANT (02/16/2019 8:30 AM CDT) HEPATITIS B SURF AB,QN <4.0 mlU/mL 02/16/2019 2:11 PM CDT [facility] HEPATITIS B SURFACE AB INTERP Non-reacti ve(A) See Interp 02/16/2019 2:11 PM CDT [facility] Blood Venipuncture / Unknown 02/16/2019 8:30 AM CDT 02/16/2019 8:30 AM CDT Narrative [facility] - 02/16/2019 2:11 PM CDT Patient does not have immunity to Hepatitis B virus. This assay is used to determine immune status to Hepatitis B as greater than or equal to 10 mIU/mL as per CDC guidelines (MMWR:vol 55: RR-16, 2006). Luis Ceron MD CHEMISTRY ORDERABLES Final R esult Performing Organization Address City/[facility]/ZIP Co de Phone Number [facility] CLIA# [id number] [address] [place] [address] documented in this encounter Visit Diagnoses Not on filedocumented in this encounter Additional Health Concerns Infection Onset Date Last Indicated Resolved Time R/O COVID-19 08/17/2020 08/17/2020 08/24/2021 9:06 PM ONLINE BANKING SPECIALIST documented as of this encounter Care Teams Mechanical Design Engineer Facilities Relationship Specialty Start Date End Date Alva Umaña DO PCP - General Family Practice 07/12/19 04/19/21 documented as of this encounter
[2025-01-16 21:30] VITALS: BMI 35.9
--- NOTE | 2025-01-16 21:30 | PC.NURSE ---
Pt is a that presents to L&D with complaint of increased blood pressure at home. Pt states that her latest blood pressure was 160's/90's at home. Pt denies any RUQ pain, or current visual disturbances but says that she did experience floaters this morning but states they have since disappeared. Pt states she has had headaches throughout this and has not taken anything for current dull headache rated 4/10. 2+ pitting edema noted bilaterally throughout lower legs and feet. Pt states that moving her feet feels like a bad sunburn .
[2025-01-16 21:45] VITALS: BP 150/90; PULSE 77
[2025-01-16 21:46] LABS: Basophils Percent Auto 0.2 % (0.2-1.2); Eosinophils Absolute Auto 0.1 K/mm3 (0-0.3); Eosinophils Percent Auto 0.7 % (0-4.4); Hematocrit 32.8 % (37.0-47.0); Hemoglobin 11.1 g/dL (12.0-15.0); Immature Granulocyte Absolute 0.03 K/mm3 (0.00-0.031); Immature Granulocyte Percent A 0.3 % (0-0.5); Lymphocytes Absolute Auto 2.08 K/mm3 (0.9-3.2); Lymphocytes Percent Auto 19.7 % (18.3-44.2); Mean Corpuscular HGB Conc 33.8 g/dl (32-36); Mean Corpuscular Hemoglobin 28.5 pg (26-34); Mean Corpuscular Volume 84.1 fl (80-100); Mean Platelet Volume 9.6 fl (7.4-10.4); Monocytes Absolute Auto 0.6 K/mm3 (0.1-0.6); Monocytes Percent Auto 5.6 % (2.6-8.5); Neutrophils Absolute Auto 7.8 K/mm3 (1.3-6.7); Neutrophils Percent Auto 73.5 % (45.5-73.1); Platelet Count Result 349 k/mm3 (150-375); White Blood Count 10.6 K/mm3 (4.5-10.0)
[2025-01-16 21:52] LABS: Add Urine Microscopic? YES; Appearance Urine Clear (Clear); Bacteria Urine 1+ /hpf; Bilirubin Urine Negative (Negative); Blood Urine Negative (Negative); Color Urine Yellow (Yellow); Glucose Urine UA Negative (Negative); Ketones Urine Negative (Negative); Leukocyte Esterase Ur 1+ LEU/UL (Negative); Nitrate Urine Negative (Negative); Non Pathogenic Casts 0-2; Protein Urine 1+ mg/dL (Negative); RBC Urine 0-2 /hpf (0-2); Specific Grav Ur 1.016 (1.001-1.035); Squamous Epithelial Cell Urine Few /hpf (Few); Urobilinogen Urine 0.2 mg/dL (<2.0); pH Urine 6.5 (5.0-9.0)
[2025-01-16 21:57] LABS: Alanine Aminotransferase 13 U/L (6-35); Albumin Level 3.4 g/dL (3.5-5.1); Alkaline Phosphatase 121 U/L (38-126); Anion Gap 9 mmol/L (4-12); Aspartate Amino Transferase 15 U/L (14-36); Bilirubin,Total 0.2 mg/dL (0.2-1.3); Blood Urea Nitrogen 7 mg/dL (7-17); Carbon Dioxide 23 mmol/L (22-30); Chloride 104 mmol/L (98-107); Estimated Glomerular Filt Rate > 60; Glucose 128 mg/dL (65-110); Potassium 3.3 mmol/L (3.4-5.0); Sodium 136 mmol/L (137-145); Uric Acid 6.1 mg/dL (2.5-7.5)
[2025-01-16 22:00] VITALS: BP 145/88; PULSE 75
[2025-01-16 22:12] LABS: Creatinine Urine 124.2 mg/dL; Total Protein Urine Random 56 mg/dL; Ur Ttl Prot Creatinine Ratio 0.45 mg/mg (0-0.20)
[2025-01-16 22:15] VITALS: BP 143/88; PULSE 72
--- NOTE | 2025-01-16 22:16 | PC.NURSE ---
MD responded to page. MD made aware of pts arrival to unit with complaint of increased blood pressures at home. MD made aware Pt denies any RUQ pain, or current visual disturbances but says that she did experience floaters this morning but states they have since disappeared. Pt states she has had headaches throughout this and has not taken anything for current dull headache rated 4/10. 2+ pitting edema noted bilaterally throughout lower legs and feet. MD made aware of latest blood pressures and results of CBC/CMP/UA/PC ratio. Orders received for pt to be discharged.
--- NOTE | 2025-01-16 22:43 | OBADM ---
This patient, Smita Rios, admitted to the OB room OB Post 117 for observation. Patient/family oriented to hospital policies and general routines including ID bracelet, bed and alarms, visiting hours, pain management, procedures, bathroom and other care routines, personal items, smoking policy, room service/diet, and visiting hours. Patient/Family are encouraged to report perceived risks to care and to ask questions if they do not understand what they are told or what they should do.
--- NOTE | 2025-01-18 05:42 | P.PNOB_ITS ---
OB - Triage/Final Diagnosis Visit Information Reason for evaluation: threatened labor Comments/Additional reasons for admission: I have assessed the risk for this patient, Smita Rios, and determined that she would benefit from observation care. Evaluation Laboratory results: Laboratory Tests 01/16/25 21:41 WBC 10.6 H RBC 3.90 L Hgb 11.1 L Hct 32.8 L MCV 84.1 MCH 28.5 MCHC 33.8 RDW 13.0 Plt Count 349 MPV 9.6 Immature Gran % (Auto) 0.3 Neut % (Auto) 73.5 H Lymph % (Auto) 19.7 [place] % (Auto) 5.6 Eos % (Auto) 0.7 Baso % (Auto) 0.2 Lymph # (Auto) 2.08 [place] # (Auto) 0.6 Eos # (Auto) 0.1 Baso # (Auto) 0.0 Abs Immat Gran (auto) 0.03 Absolute Neuts (auto) 7.8 H Absolute Nucleated RBC 0.000 Nucleated RBC % 0.0 Sodium 136 L Potassium 3.3 L Chloride 104 Carbon Dioxide 23 Anion Gap 9 BUN 7 Creatinine 0.61 L Estim Creat Clear Calc Not Reportable Estimated GFR > 60 Glucose 128 H Uric Acid 6.1 Calcium 9.0 Total Bilirubin 0.2 AST 15 ALT 13 Alkaline Phosphatase 121 Total Protein 7.0 Albumin 3.4 L Urine Color Yellow Urine Appearance Clear Urine pH 6.5 Ur Specific [place] 1.016 Urine Protein 1+ H Urine Glucose (UA) Negative Urine Ketones Negative Ur Blood (Man) Negative Urine Nitrate Negative Urine Bilirubin Negative Urine Urobilinogen 0.2 Leukocyte Esterase Rfl 1+ H Urine RBC 0-2 Urine WBC 6-10 H Ur Squamous Epith Cells Few Urine Bacteria 1+ H Urine Casts 0-2 U Random Total Protein 56 Urine Creatinine 124.2 Protein/Creat Ratio 2 0.45 H
== END 2025-01-16 22:41 | disposition home or self-care (01) ==
PROVIDERS: Obstetrics & Gynecology; Admitting Provider Obstetrics & Gynecology; Visit Provider Obstetrics & Gynecology
DX: O47.03 False labor before 37 completed weeks of gestation, third trimester (principal); Z3A.35 35 weeks gestation of pregnancy
CPT/HCPCS: 36415; 80053; 81001; 82570; 84156; 84550; 85025; 87086; G0378; G0379

== ENCOUNTER 2025-01-20 13:59 | Outpatient (CLI) | payer BC, SELFPAY ==
[2025-01-20] VITALS (24 sets, daily range): BP systolic 140–150; BP diastolic 83–98; PULSE 66–85; O2SAT 97–100; BMI 36.8
--- OUTSIDE RECORDS SUMMARY | 2025-01-20 14:41 | XMS_ITS | Clinical Summary ---
Author Organization [employer] [id number] [facility] Address [address] [place] [address] Care Team Providers Care Belt Measurer Name Role Phone Unavailable Primary Care Provider [...] COVID-19 VACCINE - EMERGENCY USE AUTHORIZATION, MRNA, [id number](PF) 30 MCG/0.3 ML IM SUSP 10/19/2020,09/27/2020 Influenza [...] Comments Blood Pressure 110/70 10/03/2020 9:04 AM READING EFFICIENCY COURSE DIRECTOR Pulse 84 12/28/2019 2:55 PM CDT Temperature 36.3 C (97.4 F) 10/19/2019 10:57 AM READING EFFICIENCY COURSE DIRECTOR Respiratory Rate 17 12/28/2019 2:55 PM CDT Oxygen Saturation 97% 12/28/2019 2:55 PM CDT Inhaled Oxygen Concentration - - Weight 84.2 kg (185 lb 9.6 oz) 10/03/2020 9:04 A M READING EFFICIENCY COURSE DIRECTOR Height 172.7 cm (5' 8 ) 10/03/2020 9:04 AM READING EFFICIENCY COURSE DIRECTOR Body Mass Index 28.22 10/03/2020 9:04 AM READING EFFICIENCY COURSE DIRECTOR Plan of Treatment Health Maintenance Due Date Last Done Comments HEPATITIS B VACCINES (1 of 3 - 19+ 3-dose series) 2015 HPV/Cotest (21-29) 2017 CERVICAL CANCER SCREENING 10/03/2023 PAP SMEAR 10/03/2023 10/03/2020, 07/13, 07/19/2019 INFLUENZA [...] GC, PAP VIAL Routine 10/03/2020 9:23 AM READING EFFICIENCY COURSE DIRECTOR Encounter for gynecological examination without abnormal finding Screening examination for venereal disease CERV/VAG CYTO AGE BASED SCREEN PAP W CT/NG Routine 10/03/2020 9:23 AM READING EFFICIENCY COURSE DIRECTOR Encounter for gynecological examination without abnormal finding Screening examination for venereal disease from Last 3 Months or Most Recently Relevant to Health Maintenance Results * CERV/VAG CYTO AGE BASED SCREEN PAP W CT/NG (10/03/2020 9:23 AM READING EFFICIENCY COURSE DIRECTOR) CASE REPORT Gynecologic Cytology Report Case: [id number] Authorizing Provider: Ana María Austin MD Collected: 10/03/2020 09:23 AM Ordering Location: [facility] Received: 10/03/2020 09:[address] Screen: Diane Srivastava Rescreen: Milvia Houser Specimen: LB PAP TP PROT, Endocervix 10/18/2020 1:40 PM READING EFFICIENCY COURSE DIRECTOR [facility] Specimen Adequacy Satisfactory for evaluation, endocervical/trans formation zone component present 10/18/2020 1:40 PM READING EFFICIENCY COURSE DIRECTOR [facility] Interpretation Negative for intraepithelial lesion or malignancy 10/18/2020 1:40 PM READING EFFICIENCY COURSE DIRECTOR [facility] Verified by Milvia Houser on 10/18/2020 at 1340 READING EFFICIENCY COURSE DIRECTOR Doffer Other Findings Fungal organisms morphologically consistent with Deidra species 10/18/2020 1:40 PM READING EFFICIENCY COURSE DIRECTOR [facility] Doffer Prev Pap Result LSIL 2019 10/18/2020 1:40 PM READING EFFICIENCY COURSE DIRECTOR [facility] Doffer Educational Note 10/18/2020 1:40 PM READING EFFICIENCY COURSE DIRECTOR [facility] Comment:The Pap test is a sc reening test used to aid in the detection of cervical cancer and its precursors. It should not be the sole means by which malignant and premalignant lesions are diagnosed. Both false negative and false positive results may occur. Results must be interpreted in the context of historic and current clinical information. EMBEDDED IMAGE 10/18/2020 1:40 PM READING EFFICIENCY COURSE DIRECTOR [facility] Genital SWAB OF ENDOCERVIX / Unknown Collection / Unknown 10/03/2020 9:23 AM READING EFFICIENCY COURSE DIRECTOR 10/03/2020 9:02 PM READING EFFICIENCY COURSE DIRECTOR Ana María Austin MD PATHOLOGY/CYTOLOGY ORDERABLES Final Result [facility] CLIA# [id number] [place] [address] * CHLAMYDIA AND GC, PAP VIAL (10/03/2020 9:23 AM READING EFFICIENCY COURSE DIRECTOR) Pathologist [facility] CHLAMYDIA DNA AMPLIFICATION NOT DETECTED Not Detected 10/04/2020 12:49 AM READING EFFICIENCY COURSE DIRECTOR [facility] GC DNA AMPLIFICATION NOT DETECTED Not Detected 10/04/2020 12:49 AM [facility] Genital SWAB OF ENDOCERVIX / Unknown Collection / Unknown 10/03/2020 9:23 AM READING EFFICIENCY COURSE DIRECTOR 10/03/2020 9:02 PM READING EFFICIENCY COURSE DIRECTOR Ana María Austin MD BODY FLUIDS AND STOOLS COM Fin al Result [facility] CLIA# [id number] [place] [address] from Last 3 Months or Most Recently Relevant to Health Maintenance
--- OUTSIDE RECORDS SUMMARY | 2025-01-20 14:41 | XMS_ITS | Encounter Summary ---
Author Organization [facility] Address [address] [place] [address] Phone Care Team Providers Care Recyclable Materials Sorter Name Role Phone Ziggy Greene MD Primary Care Provider [phone] Sasha Wang APRN, CNP Primary Care P rovider Encounter Details Date Type Department Care Team (Late st Contact Info) Description 04/10/2021 [facility] [address] [place] [address] Sandra Thomas APRN, RN PATIENT CARE [address] [place] [address] Social History Tobacco Use Types [...] 0.5(L) >=1.1 AI 04/10/2021 9:55 PM CDT [facility] Blood Venipuncture / Unknown 04/10/2021 9:55 AM CDT 04/10/2021 1:27 PM CDT Narrative [facility] - 04/10/2021 9:55 PM CDT <= 0.8 Negative. No detectable VZV IgG antibody. 0.9 - 1.0 Equivocal >=1.1 Positive Antibody testing was performed by multiplex flow immunoassay on the BioPlex platform. us Sandra Thomas DESIGN ENGINEERING MANAGER, RN PATIENT CARE IMMUNOLOGY ORDERABL ES Final Result [facility] [address] [place] [address], * (ABNORMAL) RUBEOLA (MEASLES) IGG (04/10/2021 9:55 AM CDT) MEASLES AB IGG 0.2(L) >=1.1 AI 04/10/2021 9:55 PM CDT [facility] Blood Venipuncture / Unknown 04/10/2021 9:55 AM CDT 04/10/2021 1:27 PM CDT Narrative [facility] - 04/10/2021 9:55 PM CDT <= 0.8 Negative. No detectable Measles IgG antibody. 0.9 - 1.0 Equivocal >=1.1 Positive Antibody testing was performed by multiplex flow immunoassay on the BioPlex platform. us Sandra Thomas APRN, CNP IMMUNOLOGY ORDERABL ES Final Result Performing Organization Address City/[facility] Co de Phone Number [facility] [address] [place] [address], [place] * RUBELLA IMMUNITY IGG (04/10/2021 9:55 AM CDT) RUBELLA IMMUNITY Immune Immune, Invalid 04/10/2021 9:55 PM CDT [facility] Blood Venipuncture / Unknown 04/10/2021 9:55 AM CDT 04/10/2021 1:27 PM CDT Narrative [facility] - 04/10/2021 9:55 PM CDT Antibody testing was performed by multiplex flow immunoassay on the BioPlex platform. us Sandra Thomas APRN, CNP CHEMISTRY ORDERABLE S Final Result Performing Organization Address [facility] de Phone Number [facility] [address] [place] [address], [place] * (ABNORMAL) MUMPS IGG (04/10/2021 9:55 AM CDT) Mumps Ab IgG 1.0(L) >=1.1 AI 04/10/2021 9:55 PM CDT [facility] Blood Venipuncture / Unknown 04/10/2021 9:55 AM CDT 04/10/2021 1:27 PM CDT Narrative [facility] - 04/10/2021 9:55 PM CDT <= 0.8 Negative. No detectable Mumps IgG antibody. 0.9 - 1.0 Equivocal >=1.1 Positive Antibody testing was performed by multiplex flow immunoassay on the [employer] platform. us Sandra Thomas APRN, CNP IMMUNOLOGY ORDERABL ES Final Result Performing Organization Address [facility] Co de Phone Number [facility] [address] [place] [address], [place] * HEPATITIS B SURFACE ANTIBODY (HBSAB) (04/10/2021 9:55 AM CDT) HEPATITIS B SURFACE ANTIBODY 19.05 mIU/mL [facility] ARCH [id number] 04/10/2021 9:44 PM CDT [facility] Comment: Detected Range: >12.00 Individual is considered immune to HBV infection Blood Venipuncture / Unknown 04/10/2021 9:55 AM CDT 04/10/2021 1:27 PM CDT us Sandra Thomas APRN, CNP CHEMISTRY ORDERABLE S Final Result Performing Organization Address [facility] Co de Phone Number [facility] [address] [place] [address], [place] documented in this encounter Visit Diagnoses Not on filedocumented in this encounter Additional Health Concerns Infection Onset Date Last Indicated Resolved Time COVID - 19 10/22/2021 10/22/2021 11/11/2021 12:1 6 AM DIRECTOR PRESALES COVID - 19 Confirmed 05/29/2022 05/29/2022 022 12:16 AM CDT Assessment Noted Time PHQ-9 Depression Total Score: 9 11/19/19 19 8:06 AM DIRECTOR PRESALES documented as of this encounter Care Teams Recyclable Materials Sorter Relationship Specialty Start Date End Date Ziggy Greene MD PCP - General Family Medicine 01/14/19 01/15/22 Sasha Wang APRN, TRAVIS [address] [place] [address] PCP - General Advanced Practice Nurse 01/16/22 documented as of this encounter
--- OUTSIDE RECORDS SUMMARY | 2025-01-20 14:41 | XMS_ITS | Encounter Summary ---
Author Organization [facility] Address [address] [place] [address] Care Team Providers Care Live In Caregiver Name Role Phone Alva Umaña Primary Care Provider [phone] Encounter Details Date Type Department Care Team (Late st Contact Info) Description 02/16/2019 Lab Requisition [place] [facility] [address] [place] [address] [place] [address] [facility] [address] [place] [phone] Social History Tobacco Use Types Packs/Day Years [...] T-SPOT TB Negative 02/19/2019 8:15 AM CDT [facility] SERVICES [facility] T-SPOT TB See Scanned Report 02/19/2019 8:15 AM CDT [facility] Blood Venipuncture / Unknown 02/16/2019 8:30 AM CDT 02/16/2019 8:30 AM CDT Luis Ceron MD MICROBIOLOGY - GENERAL ORDER SINDHU Final Result Performing Organization Address City/[facility]/ZIP Co de Phone Number [facility] CLIA# [id number] [place] [address] * (ABNORMAL) HEPATITIS B SURFACE AB, QUANT (02/16/2019 8:30 AM CDT) HEPATITIS B SURF AB,QN <4.0 mlU/mL 02/16/2019 2:11 PM CDT [facility] HEPATITIS B SURFACE AB INTERP Non-reacti ve(A) See Interp 02/16/2019 2:11 PM CDT [facility] Blood Venipuncture / Unknown 02/16/2019 8:30 AM CDT 02/16/2019 8:30 AM CDT Narrative [facility] - 02/16/2019 2:11 PM CDT Patient does not have immunity to Hepatitis B virus. This assay is used to determine immune status to Hepatitis B as greater than or equal to 10 mIU/mL as per CDC guidelines (MMWR:vol 55: RR-16, 2006). Luis Ceron MD CHEMISTRY ORDERABLES Final R esult Performing Organization Address City/[facility]/ZIP Co de Phone Number [facility] CLIA# [id number] [address] [place] [address] documented in this encounter Visit Diagnoses Not on filedocumented in this encounter Additional Health Concerns Infection Onset Date Last Indicated Resolved Time R/O COVID-19 08/17/2020 08/17/2020 08/24/2021 9:06 PM DRAWING SUPERVISOR documented as of this encounter Care Teams Live In Caregiver Relationship Specialty Start Date End Date Alva Umaña DO PCP - General Family Practice 07/12/19 04/19/21 documented as of this encounter
--- OUTSIDE RECORDS SUMMARY | 2025-01-20 14:41 | XMS_ITS | Encounter Summary ---
Author Organization [facility] Address [address] [place] [address] Phone Care Team Providers Care Fish Grader Name Role Phone Ziggy Greene MD Primary Care Provider [phone] Sasha Wang APRN, CNP Primary Care P rovider Encounter Details Date Type Department Care Team (Late st Contact Info) Description 10/23/2021 [facility] [address] [place] [address] Angel Mills MD [address] [place] [address] Cough, unspecified; Nasal congestion; Headache, [...] SARS-COV-2 BY MOLECULAR Routine 10/22/2021 7:45 AM BRIDGE REPAIR CREW PERSON Cough, unspecified Nasal congestion Headache, unspecified documented in this encounter Results * SARS-COV-2 BY MOLECULAR (10/22/2021 7:45 AM BRIDGE REPAIR CREW PERSON) SARSCOV2 NOT DETECTED (Referenc e Range for this test is Not Detected) [facility] ID NOW 10/23/2021 9:19 AM BRIDGE REPAIR CREW PERSON [facility] Comment:This test was perfor med by a MOLECULAR, NON-PCR method Other No Phlebotomy Charged / Unknown 10/22/2021 7:45 AM BRIDGE REPAIR CREW PERSON 10/23/2021 9:18 AM BRIDGE REPAIR CREW PERSON Narrative [facility] - 10/23/2021 9:19 AM BRIDGE REPAIR CREW PERSON This test has been authorized by the [...] information for Clinicians can be found at: https://www.fda.gov/media/228704/download Additional information for Patients can be found at: https://www.fda.gov/media/321550/download us Angel Mills MD MICROBIOLOGY - GENERAL ORDERAB LES Final Result [facility] [address] [place] [address] documented in this encounter Visit Diagnoses Diagnosis Cough, unspecified Nasal congestion Other diseases of nasal cavity and sinuses Headache, unspecified documented in this encounter Additional Health Concerns Infection Onset Date Last Indicated Resolved Time COVID - 19 10/22/2021 10/22/2021 11/11/2021 12:1 6 AM BRIDGE REPAIR CREW PERSON COVID - 19 Confirmed 05/29/2022 05/29/202206/18/ 022 12:16 AM CDT Assessment Noted Time PHQ-9 Depression Total Score: 9 11/19/19 19 8:06 AM BRIDGE REPAIR CREW PERSON documented as of this encounter Care Teams Fish Grader Relationship Specialty Start Date End Date Ziggy Greene MD PCP - General Family Medicine 01/14/19 01/15/22 Sasha Wang APRN, MUFF WINDER [address] [place] [address] PCP - General Advanced Practice Nurse 01/16/22 documented as of this encounter
--- OUTSIDE RECORDS SUMMARY | 2025-01-20 14:41 | XMS_ITS | Clinical Summary ---
Author Organization [facility] Address [address] [place] [address] Phone Care Team Providers Care Syrup Mixer Assistant Name Role Phone Sasha Wang APRN, CNP [...] Type Department Care Team Description 01/07/2025 Telephone [facility] Call Center [address] [place] [address] Sasha Wang APRN, CNP Appointment from Last 3 Months Immunizations Immunization Administration Dates Next Due Covid-19, Mrna, Lnp-s, Pf, 3 0 Mcg/0.3 Ml Dose ([employer]) 09/28/2021 DTAP VACCINE, UNSPECIFIED FORMULATION ,11/24/1997,02/04/1997,12/16,1996 Hepatitis [...] drink = 0.6 oz pur e alcohol) [facility] [employer]ie[employer] Answer Date Recorded In the past 12 months has [employer], gas, oil, or water [employer] threatened to shut off services in your [...] How often do you attend [facility] or zoroastrian services? Never 10/21/2023 Do you belong to any clubs o r organizations such as mandaeism groups, unions, fraternal or athletic groups, or [...] Total Score - Questions 1-9 10 03/2022 [facility] - Occupational Stress Questionnaire Answer Date [...] place to sleep or slept in a snf (including now)? No 10/21/2023 Education Answer Date [...] Virus (HCV) Screening 1996 Pap Smear 10/03/2023 10/03/2020, 10/03/2020 SARS-COV-2 Immunization ( season) 2024 09/28/2021, 10/19/2020, 09/27/2020 Influenza Immunization (Season Ended) 2025 06/25/2023, 07/18/2022, 08/01/2020, Additional history exists DTaP/Tdap/Td Immunization (8 - Td or Tdap) [...] Procedure Name Priority Date/Time Associated Diagnosis Comments PATHOLOGY CYTOLOGY MOSAIC WORKER 10/03/2020 12:00 AM CREATIVE ARTS THERAPIST from Last 3 Months or Most Recently Relevant to Health Maintenance Results * PATHOLOGY CYTOLOGY MOSAIC WORKER (10/03/2020 12:00 AM CREATIVE ARTS THERAPIST) 10/03/2020 us Provider Scan PATHOLOGY/CYTOLOGY ORDERABLES Fi nal Result [facility] NON-INTERFACED REFERENCE LABORATORIES from Last 3 Months or Most Recently Relevant to Health Maintenance Insurance [facility] Care Teams Syrup Mixer Assistant Relationship Specialty Start Date End Date Sasha Wang, ALEJANDRO, RESEARCH PSYCHOLOGIST [address] [place] [address] PCP - General Advanced Practice Nurse 01/16/22
[2025-01-20 14:49] LABS: Add Urine Microscopic? YES; Appearance Urine Clear (Clear); Bacteria Urine 1+ /hpf; Bilirubin Urine Negative (Negative); Blood Urine Negative (Negative); Color Urine Yellow (Yellow); Glucose Urine UA Negative (Negative); Ketones Urine Negative (Negative); Leukocyte Esterase Ur 1+ LEU/UL (Negative); Nitrate Urine Negative (Negative); Non Pathogenic Casts 0-2; Protein Urine 1+ mg/dL (Negative); RBC Urine 0-2 /hpf (0-2); Specific Grav Ur 1.012 (1.001-1.035); Squamous Epithelial Cell Urine Few /hpf (Few); Urobilinogen Urine 0.2 mg/dL (<2.0); pH Urine 7.5 (5.0-9.0)
[2025-01-20 14:53] LABS: Basophils Percent Auto 0.3 % (0.2-1.2); Eosinophils Percent Auto 0.4 % (0-4.4); Hemoglobin 10.4 g/dL (12.0-15.0); Immature Granulocyte Absolute 0.03 K/mm3 (0.00-0.031); Immature Granulocyte Percent A 0.3 % (0-0.5); Lymphocytes Absolute Auto 1.55 K/mm3 (0.9-3.2); Lymphocytes Percent Auto 14.2 % (18.3-44.2); Mean Corpuscular HGB Conc 33.5 g/dl (32-36); Mean Corpuscular Hemoglobin 27.8 pg (26-34); Mean Corpuscular Volume 82.9 fl (80-100); Mean Platelet Volume 9.7 fl (7.4-10.4); Monocytes Absolute Auto 0.5 K/mm3 (0.1-0.6); Monocytes Percent Auto 4.1 % (2.6-8.5); Neutrophils Absolute Auto 8.8 K/mm3 (1.3-6.7); Neutrophils Percent Auto 80.7 % (45.5-73.1); Platelet Count Result 347 k/mm3 (150-375); Red Blood Count 3.74 M/mm3 (4.2-5.4); Red Cell Distribution Width 12.9 % (11.5-14.5); White Blood Count 10.9 K/mm3 (4.5-10.0)
[2025-01-20 15:07] LABS: Alanine Aminotransferase 14 U/L (6-35); Albumin Level 3.2 g/dL (3.5-5.1); Alkaline Phosphatase 116 U/L (38-126); Anion Gap 9 mmol/L (4-12); Aspartate Amino Transferase 16 U/L (14-36); Bilirubin,Total 0.2 mg/dL (0.2-1.3); Blood Urea Nitrogen 7 mg/dL (7-17); Calcium 8.3 mg/dL (8.4-10.2); Carbon Dioxide 22 mmol/L (22-30); Chloride 104 mmol/L (98-107); Estimated Glomerular Filt Rate > 60; Glucose 133 mg/dL (65-110); Potassium 3.3 mmol/L (3.4-5.0); Sodium 135 mmol/L (137-145)
[2025-01-20] MEDS: BETAMETHASONE SOD PHOS/ACETATE 30 MG/5 ML VIAL 12 MG IM (15:13)
[2025-01-20 15:24] LABS: Total Protein Urine Random 47 mg/dL
--- NOTE | 2025-01-20 16:05 | PC.NURSE ---
Dr. Colvin returned page from 1601. Notified that patient has a reactive tracing, BP checks 140s/90s. Uric acid 7.0 and urine PCR 0.5. Liver enzymes normal. Per , pt. is ok to dc and needs to return on 01/21 for 2nd celestone shot. Pt. to have medical IOL on wednesday 01/24 at 1600
== END 2025-01-20 16:17 | disposition home or self-care (01) ==
LOC: ANHOBOP 14:06 → ANHOBPP 14:11
PROVIDERS: Visit Provider Obstetrics & Gynecology
DX: O13.9 Gestational [pregnancy-induced] hypertension without significant proteinuria, unspecified trimester (principal); Z3A.00 Weeks of gestation of pregnancy not specified
CPT/HCPCS: 36415; 59025; 80053; 81001; 82570; 84156; 84550; 85025; 87086; 96372; 99199; J0702

== ENCOUNTER 2025-01-21 14:22 | Outpatient (CLI) | payer BC, SELFPAY ==
--- OUTSIDE RECORDS SUMMARY | 2025-01-21 14:46 | XMS_ITS | Encounter Summary ---
Author Organization [facility] Address [address] [place] [address] Phone Care Team Providers Care Process Expert Name Role Phone Ziggy Greene MD Primary Care Provider Sasha Wang APRN, CNP Primary Care P rovider Encounter Details Date Type Department Care Team (Late st Contact Info) Description 04/10/2021 [facility] [address] [place] [address] Sandra Thomas APRN, BRICKLAYER'S ASSISTANT [address] [place] [address] Social History Tobacco Use Types [...] 0.5(L) >=1.1 AI 04/10/2021 9:55 PM CDT [facility] Blood Venipuncture / Unknown 04/10/2021 9:55 AM CDT 04/10/2021 1:27 PM CDT Narrative [facility] - 04/10/2021 9:55 PM CDT <= 0.8 Negative. No detectable VZV IgG antibody. 0.9 - 1.0 Equivocal >=1.1 Positive Antibody testing was performed by multiplex flow immunoassay on the BioPlex platform. us Sandra Thomas TELETYPEWRITER OPERATOR, BRICKLAYER'S ASSISTANT IMMUNOLOGY ORDERABL ES Final Result [facility] [address] [place] [address], * (ABNORMAL) RUBEOLA (MEASLES) IGG (04/10/2021 9:55 AM CDT) MEASLES AB IGG 0.2(L) >=1.1 AI 04/10/2021 9:55 PM CDT [facility] Blood Venipuncture / Unknown 04/10/2021 9:55 AM CDT 04/10/2021 1:27 PM CDT Narrative [facility] - 04/10/2021 9:55 PM CDT <= 0.8 Negative. No detectable Measles IgG antibody. 0.9 - 1.0 Equivocal >=1.1 Positive Antibody testing was performed by multiplex flow immunoassay on the BioPlex platform. us Sandra Thomas APRN, CNP IMMUNOLOGY ORDERABL ES Final Result Performing Organization Address City/[facility] Co de Phone Number [facility] [address] [place] [address], [place] * RUBELLA IMMUNITY IGG (04/10/2021 9:55 AM CDT) RUBELLA IMMUNITY Immune Immune, Invalid 04/10/2021 9:55 PM CDT [facility] Blood Venipuncture / Unknown 04/10/2021 9:55 AM CDT 04/10/2021 1:27 PM CDT Narrative [facility] - 04/10/2021 9:55 PM CDT Antibody testing was performed by multiplex flow immunoassay on the BioPlex platform. us Sandra Thomas APRN, CNP CHEMISTRY ORDERABLE S Final Result Performing Organization Address [facility] de Phone Number [facility] [address] [place] [address], [place] * (ABNORMAL) MUMPS IGG (04/10/2021 9:55 AM CDT) Mumps Ab IgG 1.0(L) >=1.1 AI 04/10/2021 9:55 PM CDT [facility] Blood Venipuncture / Unknown 04/10/2021 9:55 AM CDT 04/10/2021 1:27 PM CDT Narrative [facility] - 04/10/2021 9:55 PM CDT <= 0.8 Negative. No detectable Mumps IgG antibody. 0.9 - 1.0 Equivocal >=1.1 Positive Antibody testing was performed by multiplex flow immunoassay on the Veeva platform. us Sandra Thomas APRN, CNP IMMUNOLOGY ORDERABL ES Final Result Performing Organization Address [facility] Co de Phone Number [facility] [address] [place] [address], [place] * HEPATITIS B SURFACE ANTIBODY (HBSAB) (04/10/2021 9:55 AM CDT) HEPATITIS B SURFACE ANTIBODY 19.05 mIU/mL [facility] [id number] 04/10/2021 9:44 PM CDT [facility] Comment: Detected Range: >12.00 Individual is considered immune to HBV infection Blood Venipuncture / Unknown 04/10/2021 9:55 AM CDT 04/10/2021 1:27 PM CDT us Sandra Thomas APRN, CNP CHEMISTRY ORDERABLE S Final Result Performing Organization Address [facility] Co de Phone Number [facility] [address] [place] [address], [place] documented in this encounter Visit Diagnoses Not on filedocumented in this encounter Additional Health Concerns Infection Onset Date Last Indicated Resolved Time COVID - 19 10/22/2021 10/22/2021 11/11/2021 12:1 6 AM INTERIOR DESIGN TEACHER COVID - 19 Confirmed 05/29/2022 05/29/2022 022 12:16 AM CDT Assessment Noted Time PHQ-9 Depression Total Score: 9 11/19/19 19 8:06 AM INTERIOR DESIGN TEACHER documented as of this encounter Care Teams Process Expert Relationship Specialty Start Date End Date Ziggy Greene MD PCP - General Family Medicine 01/14/19 01/15/22 Sasha Wang APRN, TRAVIS [address] [place] [address] PCP - General Advanced Practice Nurse 01/16/22 documented as of this encounter
--- OUTSIDE RECORDS SUMMARY | 2025-01-21 14:46 | XMS_ITS | Encounter Summary ---
Author Organization [facility] Address [address] [place] [address] Care Team Providers Care Orchestra Teacher Name Role Phone Alva Umaña Primary Care Provider [phone] Encounter Details Date Type Department Care Team (Late st Contact Info) Description 02/16/2019 Lab Requisition [facility] [employer] [facility] [address] [place] [address] [place] [address] [facility] [address] [place] [phone] Social History Tobacco Use Types Packs/Day Years [...] T-SPOT TB Negative 02/19/2019 8:15 AM CDT [facility] [employer] [facility] T-SPOT TB See Scanned Report 02/19/2019 8:15 AM CDT [facility] Blood Venipuncture / Unknown 02/16/2019 8:30 AM CDT 02/16/2019 8:30 AM CDT Luis Ceron MD MICROBIOLOGY - GENERAL ORDER SINDHU Final Result Performing Organization Address City/[facility]/ZIP Co de Phone Number [facility] CLIA# [id number] [address] [place] [address] * (ABNORMAL) HEPATITIS B SURFACE AB, QUANT (02/16/2019 8:30 AM CDT) HEPATITIS B SURF AB,QN <4.0 mlU/mL 02/16/2019 2:11 PM CDT [facility] HEPATITIS B SURFACE AB INTERP Non-reacti ve(A) See Interp 02/16/2019 2:11 PM CDT [facility] Blood Venipuncture / Unknown 02/16/2019 8:30 AM CDT 02/16/2019 8:30 AM CDT Narrative [facility] - 02/16/2019 2:11 PM CDT Patient does not have immunity to Hepatitis B virus. This assay is used to determine immune status to Hepatitis B as greater than or equal to 10 mIU/mL as per CDC guidelines (MMWR:vol 55: RR-16, 2006). Luis Ceron MD CHEMISTRY ORDERABLES Final R esult Performing Organization Address City/[facility]/ZIP Co de Phone Number [facility] CLIA# [id number] [address] [facility] [place] [address] documented in this encounter Visit Diagnoses Not on filedocumented in this encounter Additional Health Concerns Infection Onset Date Last Indicated Resolved Time R/O COVID-19 08/17/2020 08/17/2020 08/24/2021 9:06 PM SEW ON OPERATOR documented as of this encounter Care Teams Orchestra Teacher Relationship Specialty Start Date End Date Alva Umaña DO PCP - General Family Practice 07/12/19 04/19/21 documented as of this encounter
--- OUTSIDE RECORDS SUMMARY | 2025-01-21 14:46 | XMS_ITS | Encounter Summary ---
Author Organization [facility] Address [address] [place] [address] Phone Care Team Providers Care Steam Station Supervisor Name Role Phone Ziggy Greene MD Primary Care Provider [phone] Sasha Wang APRN, CNP Primary Care P rovider Encounter Details Date Type Department Care Team (Late st Contact Info) Description 10/23/2021 [facility] [address] [place] [address] Angel Mills MD [address] [place] [address] Cough, unspecified; Nasal congestion; Headache, [...] SARS-COV-2 BY MOLECULAR Routine 10/22/2021 7:45 AM INSTRUMENT ROOM TECHNICIAN Cough, unspecified Nasal congestion Headache, unspecified documented in this encounter Results * SARS-COV-2 BY MOLECULAR (10/22/2021 7:45 AM INSTRUMENT ROOM TECHNICIAN) SARSCOV2 NOT DETECTED (Referenc e Range for this test is Not Detected) [facility] ID NOW 10/23/2021 9:19 AM INSTRUMENT ROOM TECHNICIAN [facility] Comment:This test was perfor med by a MOLECULAR, NON-PCR method Other No Phlebotomy Charged / Unknown 10/22/2021 7:45 AM INSTRUMENT ROOM TECHNICIAN 10/23/2021 9:18 AM INSTRUMENT ROOM TECHNICIAN Narrative [facility] - 10/23/2021 9:19 AM INSTRUMENT ROOM TECHNICIAN This test has been authorized by the [...] information for Clinicians can be found at: https://www.fda.gov/media/819073/download Additional information for Patients can be found at: https://www.fda.gov/media/469282/download us Angel Mills MD MICROBIOLOGY - GENERAL ORDERAB LES Final Result [facility] [address] [place] [address] documented in this encounter Visit Diagnoses Diagnosis Cough, unspecified Nasal congestion Other diseases of nasal cavity and sinuses Headache, unspecified documented in this encounter Additional Health Concerns Infection Onset Date Last Indicated Resolved Time COVID - 19 10/22/2021 10/22/2021 11/11/2021 12:1 6 AM INSTRUMENT ROOM TECHNICIAN COVID - 19 Confirmed 05/29/2022 05/29/202206/18/ 022 12:16 AM CDT Assessment Noted Time PHQ-9 Depression Total Score: 9 11/19/19 19 8:06 AM INSTRUMENT ROOM TECHNICIAN documented as of this encounter Care Teams Steam Station Supervisor Relationship Specialty Start Date End Date Ziggy Greene MD PCP - General Family Medicine 01/14/19 01/15/22 Sasha Wang APRN, TUBER HELPER [address] [place] [address] PCP - General Advanced Practice Nurse 01/16/22 documented as of this encounter
--- OUTSIDE RECORDS SUMMARY | 2025-01-21 14:46 | XMS_ITS | Clinical Summary ---
Author Organization [facility] [address] [facility] Address [address] [place] [address] Care Team Providers Care Steel Post Installer Name Role Phone Unavailable Primary Care Provider [...] COVID-19 VACCINE - EMERGENCY USE AUTHORIZATION, MRNA, [id number](PF) 30 MCG/0.3 ML IM SUSP 10/19/2020,09/27/2020 Influenza [...] Comments Blood Pressure 110/70 10/03/2020 9:04 AM SNELLER HAND Pulse 84 12/28/2019 2:55 PM CDT Temperature 36.3 C (97.4 F) 10/19/2019 10:57 AM SNELLER HAND Respiratory Rate 17 12/28/2019 2:55 PM CDT Oxygen Saturation 97% 12/28/2019 2:55 PM CDT Inhaled Oxygen Concentration - - Weight 84.2 kg (185 lb 9.6 oz) 10/03/2020 9:04 A M SNELLER HAND Height 172.7 cm (5' 8 ) 10/03/2020 9:04 AM SNELLER HAND Body Mass Index 28.22 10/03/2020 9:04 AM SNELLER HAND Plan of Treatment Health Maintenance Due Date [...] GC, PAP VIAL Routine 10/03/2020 9:23 AM SNELLER HAND Encounter for gynecological examination without abnormal finding Screening examination for venereal disease CERV/VAG CYTO AGE BASED SCREEN PAP W CT/NG Routine 10/03/2020 9:23 AM SNELLER HAND Encounter for gynecological examination without abnormal finding Screening examination for venereal disease from Last 3 Months or Most Recently Relevant to Health Maintenance Results * CERV/VAG CYTO AGE BASED SCREEN PAP W CT/NG (10/03/2020 9:23 AM SNELLER HAND) CASE REPORT Gynecologic Cytology Report Case: [id number] Authorizing Provider: Ana María Austin MD Collected: 10/03/2020 09:23 AM Ordering Location: [facility] Received: 10/03/2020 09:[address] Screen: Diane Srivastava Rescreen: Milvia Houser Specimen: LB PAP TP PROT, Endocervix 10/18/2020 1:40 PM SNELLER HAND [facility] Specimen Adequacy Satisfactory for evaluation, endocervical/trans formation zone component present 10/18/2020 1:40 PM SNELLER HAND [facility] Interpretation Negative for intraepithelial lesion or malignancy 10/18/2020 1:40 PM SNELLER HAND [facility] Verified by Milvia Houser on 10/18/2020 at 1340 SNELLER HAND Tobacco Hanger Other Findings Fungal organisms morphologically consistent with Deidra species 10/18/2020 1:40 PM SNELLER HAND [facility] Tobacco Hanger Prev Pap Result LSIL 2019 10/18/2020 1:40 PM SNELLER HAND [facility] Tobacco Hanger Educational Note 10/18/2020 1:40 PM SNELLER HAND [facility] Comment:The Pap test is a sc reening test used to aid in the detection of cervical cancer and its precursors. It should not be the sole means by which malignant and premalignant lesions are diagnosed. Both false negative and false positive results may occur. Results must be interpreted in the context of historic and current clinical information. EMBEDDED IMAGE 10/18/2020 1:40 PM SNELLER HAND [facility] Genital SWAB OF ENDOCERVIX / Unknown Collection / Unknown 10/03/2020 9:23 AM SNELLER HAND 10/03/2020 9:02 PM SNELLER HAND Ana María Austin MD PATHOLOGY/CYTOLOGY ORDERABLES Final Result [facility] CLIA# [id number] [address] [place] [address] * CHLAMYDIA AND GC, PAP VIAL (10/03/2020 9:23 AM SNELLER HAND) Pathologist [facility] CHLAMYDIA DNA AMPLIFICATION NOT DETECTED Not Detected 10/04/2020 12:49 AM SNELLER HAND [facility] GC DNA AMPLIFICATION NOT DETECTED Not Detected 10/04/2020 12:49 AM [facility] Genital SWAB OF ENDOCERVIX / Unknown Collection / Unknown 10/03/2020 9:23 AM SNELLER HAND 10/03/2020 9:02 PM SNELLER HAND Ana María Austin MD BODY FLUIDS AND STOOLS COM Fin al Result [facility] CLIA# [id number] [address] [place] [address] from Last 3 Months or Most Recently Relevant to Health Maintenance
--- OUTSIDE RECORDS SUMMARY | 2025-01-21 14:46 | XMS_ITS | Clinical Summary ---
[facility] Organization [facility] Address [address] [place] [address] Phone Care Team Providers Care Hand Heel Seat Fitter Name Role Phone Sasha Wang APRN, CNP [...] Type Department Care Team Description 01/07/2025 Telephone [facility] Central Call Center [address] [place] [address] Sasha Wang APRN, CNP Appointment from Last 3 Months Immunizations Immunization Administration Dates Next Due Covid-19, Mrna, Lnp-s, Pf, 3 0 Mcg/0.3 Ml Dose ([employer]) 09/28/2021 DTAP VACCINE, UNSPECIFIED FORMULATION ,11/24/1997,02/04/1997,12/16,1996 [...] drink = 0.6 oz pur e alcohol) [facility] [employer] Systems[employer] Answer Date Recorded In the past 12 months has [employer], gas, oil, or water [employer] threatened to shut off services in your [...] week 10/21/2023 How often do you attend [facility] or scientologist services? Never 10/21/2023 Do you belong to any clubs o r organizations such as holiness groups, unions, fraternal or athletic groups, or [...] Total Score - Questions 1-9 10 03/2022 [facility] - Occupational Stress Questionnaire Answer [...] place to sleep or slept in a retirement (including now)? No 10/21/2023 Education Answer Date [...] Priority Date/Time Associated Diagnosis Comments PATHOLOGY CYTOLOGY RAISE DRILL OPERATOR 10/03/2020 12:00 AM STROKE BELT SANDER OPERATOR from Last 3 Months or Most Recently Relevant to Health Maintenance Results * PATHOLOGY CYTOLOGY RAISE DRILL OPERATOR (10/03/2020 12:00 AM STROKE BELT SANDER OPERATOR) 10/03/2020 us Provider Scan PATHOLOGY/CYTOLOGY ORDERABLES Fi nal Result [facility] NON-INTERFACED REFERENCE LABORATORIES from Last 3 Months or Most Recently Relevant to Health Maintenance Insurance [facility] Care Teams Hand Heel Seat Fitter Relationship Specialty Start Date End Date Sasha Wang, ALEJANDRO, PERSONAL ASSISTANT [address] [place] [address] PCP - General Advanced Practice Nurse 01/16/22
[2025-01-21] MEDS: BETAMETHASONE SOD PHOS/ACETATE 30 MG/5 ML VIAL 12 MG IM (15:05)
== END 2025-01-21 14:23 | disposition home or self-care (01) ==
LOC: ANHOBOP 14:43
PROVIDERS: Visit Provider Obstetrics & Gynecology
DX: O82 Encounter for cesarean delivery without indication (principal); O14.90 Unspecified pre-eclampsia, unspecified trimester; O99.820 Streptococcus B carrier state complicating pregnancy; O35.BXX0 Maternal care for other (suspected) fetal abnormality and damage, fetal cardiac anomalies, not applicable or unspecified
CPT/HCPCS: 96372; J0702

== ENCOUNTER 2025-01-24 15:51 | Inpatient (IN) | payer BC, SELFPAY ==
[2025-01-24] VITALS (51 sets, daily range): BP systolic 131–172; BP diastolic 68–103; PULSE 58–93; TEMP 36.6; O2SAT 96–100; BMI 36.5
[2025-01-24 16:47] LABS: Basophils Percent Auto 0.2 % (0.2-1.2); Eosinophils Percent Auto 0.2 % (0-4.4); Hemoglobin 10.2 g/dL (12.0-15.0); Immature Granulocyte Absolute 0.08 K/mm3 (0.00-0.031); Immature Granulocyte Percent A 0.6 % (0-0.5); Lymphocytes Absolute Auto 1.77 K/mm3 (0.9-3.2); Lymphocytes Percent Auto 13.6 % (18.3-44.2); Mean Corpuscular HGB Conc 32.9 g/dl (32-36); Mean Corpuscular Hemoglobin 27.5 pg (26-34); Mean Corpuscular Volume 83.6 fl (80-100); Monocytes Absolute Auto 0.7 K/mm3 (0.1-0.6); Monocytes Percent Auto 5.3 % (2.6-8.5); Neutrophils Absolute Auto 10.4 K/mm3 (1.3-6.7); Neutrophils Percent Auto 80.1 % (45.5-73.1); Platelet Count Result 354 k/mm3 (150-375); Red Blood Count 3.71 M/mm3 (4.2-5.4); Red Cell Distribution Width 12.8 % (11.5-14.5)
[2025-01-24 16:58] LABS: Alanine Aminotransferase 16 U/L (6-35); Albumin Level 3.1 g/dL (3.5-5.1); Alkaline Phosphatase 109 U/L (38-126); Anion Gap 11 mmol/L (4-12); Aspartate Amino Transferase 18 U/L (14-36); Bilirubin,Total 0.1 mg/dL (0.2-1.3); Blood Urea Nitrogen 9 mg/dL (7-17); Calcium 8.6 mg/dL (8.4-10.2); Carbon Dioxide 19 mmol/L (22-30); Chloride 105 mmol/L (98-107); Estimated Glomerular Filt Rate > 60; Glucose 129 mg/dL (65-110); Potassium 3.5 mmol/L (3.4-5.0); Sodium 135 mmol/L (137-145); Uric Acid 6.5 mg/dL (2.5-7.5)
--- OUTSIDE RECORDS SUMMARY | 2025-01-24 17:37 | XMS_ITS | Encounter Summary ---
Author Organization [facility] Address [address] [place] [address] Phone Care Team Providers Care Logistics System Engineer Name Role Phone Ziggy Greene MD Primary Care Provider [phone] Sasha Wang APRN, CNP Primary Care P rovider Encounter Details Date Type Department Care Team (Late st Contact Info) Description 10/23/2021 [facility] [address] [place] [address] Angel Mills MD [address] [place] [address] Cough, unspecified; Nasal congestion; Headache, [...] SARS-COV-2 BY MOLECULAR Routine 10/22/2021 7:45 AM MATERIAL DAMAGE ADJUSTER Cough, unspecified Nasal congestion Headache, unspecified documented in this encounter Results * SARS-COV-2 BY MOLECULAR (10/22/2021 7:45 AM MATERIAL DAMAGE ADJUSTER) SARSCOV2 NOT DETECTED (Referenc e Range for this test is Not Detected) [facility] ID NOW 10/23/2021 9:19 AM MATERIAL DAMAGE ADJUSTER [facility] Comment:This test was perfor med by a MOLECULAR, NON-PCR method Other No Phlebotomy Charged / Unknown 10/22/2021 7:45 AM MATERIAL DAMAGE ADJUSTER 10/23/2021 9:18 AM MATERIAL DAMAGE ADJUSTER Narrative [facility] - 10/23/2021 9:19 AM MATERIAL DAMAGE ADJUSTER This test has been authorized by the [...] information for Clinicians can be found at: https://www.fda.gov/media/754061/download Additional information for Patients can be found at: https://www.fda.gov/media/074742/download us Angel Mills MD MICROBIOLOGY - GENERAL ORDERAB LES Final Result [facility] [address] [place] [address] documented in this encounter Visit Diagnoses Diagnosis Cough, unspecified Nasal congestion Other diseases of nasal cavity and sinuses Headache, unspecified documented in this encounter Additional Health Concerns Infection Onset Date Last Indicated Resolved Time COVID - 19 10/22/2021 10/22/2021 11/11/2021 12:1 6 AM MATERIAL DAMAGE ADJUSTER COVID - 19 Confirmed 05/29/2022 05/29/202206/18/ 022 12:16 AM CDT Assessment Noted Time PHQ-9 Depression Total Score: 9 11/19/19 19 8:06 AM MATERIAL DAMAGE ADJUSTER documented as of this encounter Care Teams Logistics System Engineer Relationship Specialty Start Date End Date Ziggy Greene MD PCP - General Family Medicine 01/14/19 01/15/22 Sasha Wang APRN, PRODUCTION WORKER [address] [place] [address] PCP - General Advanced Practice Nurse 01/16/22 documented as of this encounter
--- OUTSIDE RECORDS SUMMARY | 2025-01-24 17:37 | XMS_ITS | Encounter Summary ---
Author Organization [facility] Address [address] [place] [address] Phone Care Team Providers Care Dry House Worker Name Role Phone Ziggy Greene MD Primary Care Provider [phone] Sasha Wang APRN, CNP Primary Care P rovider Encounter Details Date Type Department Care Team (Late st Contact Info) Description 04/10/2021 [facility] [address] [place] [address] Sandra Thomas APRN, CLINICAL SCIENCE LIAISON [address] [place] [address] Social History Tobacco Use Types [...] 0.5(L) >=1.1 AI 04/10/2021 9:55 PM CDT [facility] Blood Venipuncture / Unknown 04/10/2021 9:55 AM CDT 04/10/2021 1:27 PM CDT Narrative [facility] - 04/10/2021 9:55 PM CDT <= 0.8 Negative. No detectable VZV IgG antibody. 0.9 - 1.0 Equivocal >=1.1 Positive Antibody testing was performed by multiplex flow immunoassay on the BioPlex platform. us Sandra Thomas LAB ASSISTANT, CLINICAL SCIENCE LIAISON IMMUNOLOGY ORDERABL ES Final Result [facility] [address] [place] [address], * (ABNORMAL) RUBEOLA (MEASLES) IGG (04/10/2021 9:55 AM CDT) MEASLES AB IGG 0.2(L) >=1.1 AI 04/10/2021 9:55 PM CDT [facility] Blood Venipuncture / Unknown 04/10/2021 9:55 AM CDT 04/10/2021 1:27 PM CDT Narrative [facility] - 04/10/2021 9:55 PM CDT <= 0.8 Negative. No detectable Measles IgG antibody. 0.9 - 1.0 Equivocal >=1.1 Positive Antibody testing was performed by multiplex flow immunoassay on the BioPlex platform. us Sandra Thomas APRN, CNP IMMUNOLOGY ORDERABL ES Final Result Performing Organization Address City/[facility] Co de Phone Number [facility] [address] [place] [address], [place] * RUBELLA IMMUNITY IGG (04/10/2021 9:55 AM CDT) RUBELLA IMMUNITY Immune Immune, Invalid 04/10/2021 9:55 PM CDT [facility] Blood Venipuncture / Unknown 04/10/2021 9:55 AM CDT 04/10/2021 1:27 PM CDT Narrative [facility] - 04/10/2021 9:55 PM CDT Antibody testing was performed by multiplex flow immunoassay on the BioPlex platform. us Sandra Thomas APRN, CNP CHEMISTRY ORDERABLE S Final Result Performing Organization Address [facility] de Phone Number [facility] [address] [place] [address], [place] * (ABNORMAL) MUMPS IGG (04/10/2021 9:55 AM CDT) Mumps Ab IgG 1.0(L) >=1.1 AI 04/10/2021 9:55 PM CDT [facility] Blood Venipuncture / Unknown 04/10/2021 9:55 AM CDT 04/10/2021 1:27 PM CDT Narrative [facility] - 04/10/2021 9:55 PM CDT <= 0.8 Negative. No detectable Mumps IgG antibody. 0.9 - 1.0 Equivocal >=1.1 Positive Antibody testing was performed by multiplex flow immunoassay on the [employer] Crow platform. us Sandra Thomas APRN, CNP IMMUNOLOGY ORDERABL ES Final Result Performing Organization Address [facility] Co de Phone Number [facility] [address] [place] [address], [place] * HEPATITIS B SURFACE ANTIBODY (HBSAB) (04/10/2021 9:55 AM CDT) HEPATITIS B SURFACE ANTIBODY 19.05 mIU/mL [facility] ARCH [id number] B 04/10/2021 9:44 PM CDT [facility] Comment: Detected Range: >12.00 Individual is considered immune to HBV infection Blood Venipuncture / Unknown 04/10/2021 9:55 AM CDT 04/10/2021 1:27 PM CDT us Sandra Thomas APRN, CNP CHEMISTRY ORDERABLE S Final Result Performing Organization Address [facility] Co de Phone Number [facility] [address] [place] [address], [place] documented in this encounter Visit Diagnoses Not on filedocumented in this encounter Additional Health Concerns Infection Onset Date Last Indicated Resolved Time COVID - 19 10/22/2021 10/22/2021 11/11/2021 12:1 6 AM MANAGER MANAGING COVID - 19 Confirmed 05/29/2022 05/29/2022 022 12:16 AM CDT Assessment Noted Time PHQ-9 Depression Total Score: 9 11/19/19 19 8:06 AM MANAGER MANAGING documented as of this encounter Care Teams Dry House Worker Relationship Specialty Start Date End Date Ziggy Greene MD PCP - General Family Medicine 01/14/19 01/15/22 Sasha Wang APRN, TRAVIS [address] [place] [address] PCP - General Advanced Practice Nurse 01/16/22 documented as of this encounter
[2025-01-24 17:38] LABS: HIV 1/2 Ab P24 Ag Result Negative (Negative)
--- OUTSIDE RECORDS SUMMARY | 2025-01-24 17:38 | XMS_ITS | Encounter Summary ---
Author Organization [facility] Address [address] [place] [address] Care Team Providers Care Aluminum Siding Applicator Name Role Phone Avla Umaña Primary Care Provider [phone] Encounter Details Date Type Department Care Team (Late st Contact Info) Description 02/16/2019 Lab Requisition [facility] [address] [place] [address] [place] [address] [facility] [address] [place] [phone] Social History Tobacco Use Types Packs/Day Years [...] T-SPOT TB Negative 02/19/2019 8:15 AM CDT [facility] [employer] [facility] T-SPOT TB See Scanned Report 02/19/2019 8:15 AM CDT [facility] [employer] [facility] Blood Venipuncture / Unknown 02/16/2019 8:30 AM CDT 02/16/2019 8:30 AM CDT Luis Ceron MD MICROBIOLOGY - GENERAL ORDER SINDHU Final Result Performing Organization Address City/[facility]/ZIP Co de Phone Number [facility] CLIA# [id number] [place] [address] * (ABNORMAL) HEPATITIS B SURFACE AB, QUANT (02/16/2019 8:30 AM CDT) HEPATITIS B SURF AB,QN <4.0 mlU/mL 02/16/2019 2:11 PM CDT [facility] HEPATITIS B SURFACE AB INTERP Non-reacti ve(A) See Interp 02/16/2019 2:11 PM CDT [facility] Blood Venipuncture / Unknown 02/16/2019 8:30 AM CDT 02/16/2019 8:30 AM CDT Narrative [facility] - 02/16/2019 2:11 PM CDT Patient does not have immunity to Hepatitis B virus. This assay is used to determine immune status to Hepatitis B as greater than or equal to 10 mIU/mL as per CDC guidelines (MMWR:vol 55: RR-16, 2006). Luis Ceron MD CHEMISTRY ORDERABLES Final R esult Performing Organization Address City/[facility]/ZIP Co de Phone Number [facility] CLIA# [id number] [address] [place] [facility] [address] documented in this encounter Visit Diagnoses Not on filedocumented in this encounter Additional Health Concerns Infection Onset Date Last Indicated Resolved Time R/O COVID-19 08/17/2020 08/17/2020 08/24/2021 9:06 PM FARMWORKER [employer] documented as of this encounter Care Teams Aluminum Siding Applicator Relationship Specialty Start Date End Date Alva Umaña DO PCP - General Family Practice 07/12/19 04/19/21 documented as of this encounter
--- OUTSIDE RECORDS SUMMARY | 2025-01-24 17:38 | XMS_ITS | Clinical Summary ---
Author Organization [facility] Address [address] [place] [address] Phone Care Team Providers Care Industrial Staff Nurse Name Role Phone Sasha Wang APRN, CNP [...] Type Department Care Team Description 01/07/2025 Telephone [facility] [address] [place] [address] Sasha Wang APRN, CNP Appointment from Last 3 Months Immunizations Immunization Administration Dates Next Due Covid-19, Mrna, Lnp-s, Pf, 3 0 Mcg/0.3 Ml Dose (Tag & See) 09/28/2021 DTAP VACCINE, UNSPECIFIED FORMULATION ,11/24/1997,02/04/1997,12/16,1996 Hepatitis [...] drink = 0.6 oz pur e alcohol) [facility] [employer] Answer Date Recorded In the past 12 months has [employer], gas, oil, or water [employer] threatened to shut off services in your [...] week 10/21/2023 How often do you attend [facility] or nondenominational services? Never 10/21/2023 Do you belong to any clubs o r organizations such as islam groups, unions, fraternal or athletic groups, or [...] 03/2022 [facility] - Occupational Stress Questionnaire Answer Date [...] place to sleep or slept in a senior care (including now)? No 10/21/2023 Education Answer Date [...] Priority Date/Time Associated Diagnosis Comments PATHOLOGY CYTOLOGY PIANO STRINGER 10/03/2020 12:00 AM SENIOR PROCUREMENT MANAGER from Last 3 Months or Most Recently Relevant to Health Maintenance Results * PATHOLOGY CYTOLOGY PIANO STRINGER (10/03/2020 12:00 AM SENIOR PROCUREMENT MANAGER) 10/03/2020 us Provider Scan PATHOLOGY/CYTOLOGY ORDERABLES Fi nal Result [facility] NON-[facility]FAC[facility] from Last 3 Months or Most Recently Relevant to Health Maintenance Insurance [facility] Care Teams Industrial Staff Nurse Relationship Specialty Start Date End Date Sasha Wang, ALEJANDRO, CANVAS MARKER [address] [place] [address] PCP - General Advanced Practice Nurse 01/16/22
--- OUTSIDE RECORDS SUMMARY | 2025-01-24 17:38 | XMS_ITS | Clinical Summary ---
Author Organization [facility] [address] [facility] Address [address] [place] [address] Care Team Providers Care Housekeeping Room Attendant Name Role Phone Unavailable Primary Care Provider [...] COVID-19 VACCINE - EMERGENCY USE AUTHORIZATION, MRNA, [id number](PF) 30 MCG/0.3 ML IM SUSP 10/19/2020,09/27/2020 Influenza [...] Comments Blood Pressure 110/70 10/03/2020 9:04 AM DEPUTY SHERIFF BUILDING GUARD Pulse 84 12/28/2019 2:55 PM CDT Temperature 36.3 C (97.4 F) 10/19/2019 10:57 AM DEPUTY SHERIFF BUILDING GUARD Respiratory Rate 17 12/28/2019 2:55 PM CDT Oxygen Saturation 97% 12/28/2019 2:55 PM CDT Inhaled Oxygen Concentration - - Weight 84.2 kg (185 lb 9.6 oz) 10/03/2020 9:04 A M DEPUTY SHERIFF BUILDING GUARD Height 172.7 cm (5' 8 ) 10/03/2020 9:04 AM DEPUTY SHERIFF BUILDING GUARD Body Mass Index 28.22 10/03/2020 9:04 AM DEPUTY SHERIFF BUILDING GUARD Plan of Treatment Health Maintenance Due Date [...] GC, PAP VIAL Routine 10/03/2020 9:23 AM DEPUTY SHERIFF BUILDING GUARD Encounter for gynecological examination without abnormal finding Screening examination for venereal disease CERV/VAG CYTO AGE BASED SCREEN PAP W CT/NG Routine 10/03/2020 9:23 AM DEPUTY SHERIFF BUILDING GUARD Encounter for gynecological examination without abnormal finding Screening examination for venereal disease from Last 3 Months or Most Recently Relevant to Health Maintenance Results * CERV/VAG CYTO AGE BASED SCREEN PAP W CT/NG (10/03/2020 9:23 AM DEPUTY SHERIFF BUILDING GUARD) CASE REPORT Gynecologic Cytology Report Case: [id number] Authorizing Provider: Ana María Austin MD Collected: 10/03/2020 09:23 AM Ordering Location: [facility] Received: 10/03/2020 09:[address] Screen: Diane Srivastava Rescreen: Milvia Houser Specimen: LB PAP TP PROT, Endocervix 10/18/2020 1:40 PM DEPUTY SHERIFF BUILDING GUARD [facility] Specimen Adequacy Satisfactory for evaluation, endocervical/trans formation zone component present 10/18/2020 1:40 PM DEPUTY SHERIFF BUILDING GUARD [facility] Interpretation Negative for intraepithelial lesion or malignancy 10/18/2020 1:40 PM DEPUTY SHERIFF BUILDING GUARD [facility] Verified by Milvia Houser on 10/18/2020 at 1340 DEPUTY SHERIFF BUILDING GUARD Student Accounts Coordinator Other Findings Fungal organisms morphologically consistent with Deidra species 10/18/2020 1:40 PM DEPUTY SHERIFF BUILDING GUARD [facility] Student Accounts Coordinator Prev Pap Result LSIL 2019 10/18/2020 1:40 PM DEPUTY SHERIFF BUILDING GUARD [facility] Student Accounts Coordinator Educational Note 10/18/2020 1:40 PM DEPUTY SHERIFF BUILDING GUARD [facility] Comment:The Pap test is a sc reening test used to aid in the detection of cervical cancer and its precursors. It should not be the sole means by which malignant and premalignant lesions are diagnosed. Both false negative and false positive results may occur. Results must be interpreted in the context of historic and current clinical information. EMBEDDED IMAGE 10/18/2020 1:40 PM DEPUTY SHERIFF BUILDING GUARD [facility] Genital SWAB OF ENDOCERVIX / Unknown Collection / Unknown 10/03/2020 9:23 AM DEPUTY SHERIFF BUILDING GUARD 10/03/2020 9:02 PM DEPUTY SHERIFF BUILDING GUARD Ana María Austin MD PATHOLOGY/CYTOLOGY ORDERABLES Final Result [facility] CLIA# [id number] [place] [address] * CHLAMYDIA AND GC, PAP VIAL (10/03/2020 9:23 AM DEPUTY SHERIFF BUILDING GUARD) Pathologist [facility] CHLAMYDIA DNA AMPLIFICATION NOT DETECTED Not Detected 10/04/2020 12:49 AM DEPUTY SHERIFF BUILDING GUARD [facility] GC DNA AMPLIFICATION NOT DETECTED Not Detected 10/04/2020 12:49 AM [facility] Genital SWAB OF ENDOCERVIX / Unknown Collection / Unknown 10/03/2020 9:23 AM DEPUTY SHERIFF BUILDING GUARD 10/03/2020 9:02 PM DEPUTY SHERIFF BUILDING GUARD Ana María Austin MD BODY FLUIDS AND STOOLS COM Fin al Result [facility] CLIA# [id number] [place] [address] from Last 3 Months or Most Recently Relevant to Health Maintenance
[2025-01-24 17:44] LABS: Syphilis IgG/IgM Antibody Negative (Negative)
[2025-01-24] MEDS: DINOPROSTONE 10 MG VAG INSERT VAGINAL (17:57)
[2025-01-24] MEDS: AMPICILLIN 2 GM/NS 100 ML 2 GM/100 ML BAG IVPB (18:18)
[2025-01-24] MEDS: LACTATED RINGERS 1,000 ML 125 ML IV CONT (18:19)
[2025-01-24] MEDS: LABETALOL HCL INJ 100 MG/20 ML VIAL 20 MG IV PUSH ×2 (21:00→22:10)
[2025-01-24] MEDS: AMPICILLIN 1 GM/NS 50 ML 1 GM/50 ML BAG IVPB (22:22)
--- NOTE | 2025-01-24 23:40 | P.HP_ITS ---
H&P: HPI History of Present Illness Date/Time: 01/24/25 23:40 Chief Complaint: Here for induction Narrative: 29 y/o G1 at 36 4/7 with preeclampsia. BP control has been worsening. She was given betamethasone late last week, and offered induction of labor. No headaches or visual field change. No epigastric or RUQ pain. Nursing had heard an audible arrhythmia intermittently during NSTs, not observed with auscultation in the office. GBS pos, receiving ampicllin. Cervidil was placed this evening. She feels occasional contractions. Because of unclear FHR tracing, we decided to withdraw the Cervidil, perform amniotomy and place internal monitors. Finally, she has had several bp readings in the 160-170/100 range, requiring two doses of labetalol 20 mg IV. Review of Systems Review of Systems: All systems reviewed & are unremarkable except as noted in HPI and below PMFSH Family History Family History Mother Cervical cancer Father Hypertension Grandparent Diabetes mellitus Grandparent Chronic obstructive pulmonary disease Sibling Asthma Social History Social History Smoking status: Never smoker Substance use: never Do You Feel Safe in your Home?: Yes Lack of Transportation: No Lack of Food: Never True Current Housing: I Have Housing Concerned About Future Housing: No Difficulty Paying Gas/Electric Bills: No Difficulty Paying for Meds: No Currently Unemployed: No Education: Bachelor's Degree Difficulty w/ Childcare or Family Care: No Spiritual care concerns: No Meds Home Medications and Allergies Home Medications ?Medication ?Instructions ?Recorded ?Confirmed ?Type vit no.95-ferrous 1 tablet PO DAILY 01/07/25 01/24/25 History fumarate 28 mg-folic acid 800 mcg tablet () acetaminophen 500 mg tablet 1,000 mg PO Q6H PRN fever or pain 01/13/25 01/24/25 History Allergies Allergy/AdvReac Type Severity Reaction Status Date / Time No Known Allergies Allergy Verified 01/21/25 14:32 Vital Signs Vital Signs - 24 hr 01/24/25 16:45 01/24/25 17:16 01/24/25 17:31 Temperature Pulse Rate 72 69 Blood Pressure 151/84 H 162/92 H Pulse Oximetry Oxygen Delivery Room Air 01/24/25 18:00 01/24/25 18:31 01/24/25 19:01 Temperature 36.6 C Pulse Rate 68 72 Blood Pressure 143/82 H 144/78 H Pulse Oximetry Oxygen Delivery 01/24/25 19:31 01/24/25 20:01 01/24/25 20:31 Temperature Pulse Rate 58 L 68 62 Blood Pressure 164/103 H 170/94 H 172/100 H Pulse Oximetry Oxygen Delivery 01/24/25 20:46 01/24/25 21:00 01/24/25 21:00 Temperature Pulse Rate 76 71 Blood Pressure 160/96 H Pulse Oximetry 97 Oxygen Delivery 01/24/25 21:11 01/24/25 21:26 01/24/25 21:30 Temperature Pulse Rate 77 74 Blood Pressure 142/79 H 144/79 H Pulse Oximetry 100 Oxygen Delivery 01/24/25 21:31 01/24/25 21:35 01/24/25 21:40 Temperature Pulse Rate 81 Blood Pressure 165/95 H Pulse Oximetry 100 100 Oxygen Delivery 01/24/25 21:45 01/24/25 21:46 01/24/25 21:50 Temperature Pulse Rate 83 Blood Pressure 170/98 H Pulse Oximetry 100 100 Oxygen Delivery 01/24/25 21:55 01/24/25 22:00 01/24/25 22:01 Temperature Pulse Rate 76 Blood Pressure 164/95 H Pulse Oximetry 100 100 Oxygen Delivery 01/24/25 22:05 01/24/25 22:10 01/24/25 22:10 Temperature Pulse Rate 66 Blood Pressure Pulse Oximetry 100 100 Oxygen Delivery 01/24/25 22:15 01/24/25 22:20 01/24/25 22:21 Temperature Pulse Rate 76 Blood Pressure 145/70 H Pulse Oximetry 98 98 Oxygen Delivery 01/24/25 22:25 01/24/25 22:30 01/24/25 22:31 Temperature Pulse Rate 65 Blood Pressure 142/78 H Pulse Oximetry 99 99 Oxygen Delivery 01/24/25 22:35 01/24/25 22:40 01/24/25 22:41 Temperature Pulse Rate 73 Blood Pressure 155/84 H Pulse Oximetry 98 98 Oxygen Delivery 01/24/25 22:48 01/24/25 22:51 01/24/25 22:53 Temperature Pulse Rate 71 Blood Pressure 168/96 H Pulse Oximetry 100 98 Oxygen Delivery 01/24/25 22:58 01/24/25 23:01 01/24/25 23:03 Temperature Pulse Rate 68 Blood Pressure 145/77 H Pulse Oximetry 98 98 Oxygen Delivery 01/24/25 23:08 01/24/25 23:13 01/24/25 23:16 Temperature Pulse Rate 67 Blood Pressure 131/68 Pulse Oximetry 97 98 Oxygen Delivery 01/24/25 23:18 01/24/25 23:23 01/24/25 23:34 Temperature Pulse Rate Blood Pressure Pulse Oximetry 99 98 97 Oxygen Delivery 01/24/25 23:39 Temperature Pulse Rate Blood Pressure Pulse Oximetry 97 Oxygen Delivery Exam Const: Orientation/consciousness: patient oriented x3 Other: Well-developed, well-nourished female in no acute distress. Neck: Thyroid: thyroid normal Lymphatic: no lymphadenopathy noted (in neck, axilla or inguinal nodes) Resp: Effort & Inspection: normal respiratory effort Auscultation: clear to auscultation bilaterally Cardio: Rate: regular rate Rhythm: regular rhythm Heart sounds: S1 normal heart sound present and S2 normal heart sound present GI: Other: ABD: Soft, nontender, nondistended, gravid. No guarding or rebound tenderness. No hepatosplenomegaly. NST 140-150, initially reactive. Now with good variability. FHR arrhythmia noted, with irregular variable FHR declerations. : General: Yes no CVA tenderness Other: Cervix 2-3/80/-2. AROM with clear fluid. Vertex. IUPC/FSE placed. Back/Spine/Pelvis: Back: no CVA tenderness Skin: General skin exam: normal color and no rashes or lesions noted Neuro: General: patient oriented x3 Extrem: Other: Extremities: nontender with no edema Psych: Mental Status: mental status grossly normal Affect: normal affect H&P: Results Labs Labs: Short CBC 01/24/25 Range/Units 16:41 WBC 13.0 H (4.5-10.0) K/mm3 Hgb 10.2 L (12.0-15.0) g/dL Hct 31.0 L (37.0-47.0) % Plt Count 354 (150-375) k/mm3 [facility] 01/24/25 16:41 Sodium 135 L Potassium 3.5 Chloride 105 Carbon Dioxide 19 L BUN 9 Creatinine 0.64 L Glucose 129 H Calcium 8.6 Liver Function 01/24/25 Range/Units 16:41 Total Bilirubin 0.1 L (0.2-1.3) mg/dL AST 18 (14-36) U/L ALT 16 (6-35) U/L Alkaline Phosphatase 109 (38-126) U/L Albumin 3.1 L (3.5-5.1) g/dL Assessment and Plan Assessment and plan (1) Preeclampsia: Code(s): O14.90 - Unspecified pre-eclampsia, unspecified trimester Status: Acute Assessment and Plan: A: IUP at 36 4/7 weeks with preeclampsia, GBS pos, arrhythmia. P: Offered induction of labor after completion of steroids. S/p Cervidil. Ampicillin. Internal monitors placed. Will augment labor as needed. We also reviewed the possibility of primary . She understands risks of to include risks of anesthesia, risks of pain, infection, bleeding, blood products, thromboembolic phenomena and damage to adjacent structures such as bowel, bladder, ureters, blood vessels and nerves. She understands all these risks and her questions have been answered. Plan to follow closely. (2) : Code(s): Z34.90 - Encounter for supervision of normal , unspecified, unspecified trimester Status: Acute (3) GBS (group B Streptococcus carrier), +RV culture, currently : Code(s): O99.820 - Streptococcus B carrier state complicating Status: Acute (4) cardiac arrhythmia: Status: Acute
[2025-01-25] VITALS (48 sets, daily range): BP systolic 126–157; BP diastolic 65–102; PULSE 68–93; RESP 16–18; TEMP 36.2–36.7; O2SAT 97–100
--- NOTE | 2025-01-25 00:11 | PM.OBPNLAB ---
Pain Control Date/time seen: 01/25/25 00:11 Feels mild contractions. NST with late decelerations. Offered primary for nonreassuring status. She understands risks of surgery to include risks of anesthesia, risks of pain, infection, bleeding, blood products, thromboembolic phenomena and damage to adjacent structures such as bowel, bladder, ureters, blood vessels and nerves. She understands all these risks and elects to proceed with surgery.
--- NOTE | 2025-01-25 00:13 | WPDHPUPDATE1 ---
History and Physical Update Update Date/Time: 01/25/25 00:13 History and Physical has been reviewed, including an updated exam of the patient. There are NO changes in the patient's condition. Risks, benefits, and alternatives have been discussed and questions answered. Patient agrees to proceed with procedure.
--- NOTE | 2025-01-25 00:17 | P.PNAN_ITS ---
Anes - Eval Pre Procedure Procedure: c section Date/Time: 01/25/25 00:17 Surgeon: celia Preop Diagnosis: intolerance to labor Pre Op Diagnosis: IOL Patient Data Age: 29 Gender: F Height: 1.73 m Weight: 109 kg Last Vital Signs Temp 36.6 C 01/24/25 18:00 Pulse 68 01/25/25 00:01 BP 149/79 H 01/25/25 00:01 Pulse Ox 97 01/25/25 00:14 O2 Del Method Room Air 01/24/25 16:45 Allergies Allergy/AdvReac Type Severity Reaction Status Date / Time No Known Allergies Allergy Verified 01/21/25 14:32 Home Medications ?Medication ?Instructions ?Recorded ?Confirmed ?Type vit no.95-ferrous 1 tablet PO DAILY 01/07/25 01/24/25 History fumarate 28 mg-folic acid 800 mcg tablet () acetaminophen 500 mg tablet 1,000 mg PO Q6H PRN fever or pain 01/13/25 01/24/25 History Laboratory Tests 01/24/25 01/24/25 16:41 16:41 WBC 13.0 H K/mm3 (4.5-10.0) RBC 3.71 L M/mm3 (4.2-5.4) Hgb 10.2 L g/dL (12.0-15.0) Hct 31.0 L % (37.0-47.0) MCV 83.6 fl (80-100) MCH 27.5 pg (26-34) MCHC 32.9 g/dl (32-36) RDW 12.8 % (11.5-14.5) Plt Count 354 k/mm3 (150-375) MPV 10.0 fl (7.4-10.4) Immature Gran % (Auto) 0.6 H % (0-0.5) Neut % (Auto) 80.1 H % (45.5-73.1) Lymph % (Auto) 13.6 L % (18.3-44.2) [place] % (Auto) 5.3 % (2.6-8.5) Eos % (Auto) 0.2 % (0-4.4) Baso % (Auto) 0.2 % (0.2-1.2) Lymph # (Auto) 1.77 K/mm3 (0.9-3.2) [place] # (Auto) 0.7 H K/mm3 (0.1-0.6) Eos # (Auto) 0.0 K/mm3 (0-0.3) Baso # (Auto) 0.0 K/mm3 (0.0-0.1) Abs Immat Gran (auto) 0.08 H K/mm3 (0.00-0.031) Absolute Neuts (auto) 10.4 H K/mm3 (1.3-6.7) Absolute Nucleated RBC 0.000 K/mm3 (0.0-0.012) Nucleated RBC % 0.0 % (0.0-0.2) Sodium 135 L mmol/L (137-145) Potassium 3.5 mmol/L (3.4-5.0) Chloride 105 mmol/L (98-107) Carbon Dioxide 19 L mmol/L (22-30) Anion Gap 11 mmol/L (4-12) BUN 9 mg/dL (7-17) Creatinine 0.64 L mg/dL (0.7-1.0) Estim Creat Clear Calc Not Reportable Estimated GFR > 60 (59 - ) Glucose 129 H mg/dL (65-110) Uric Acid Cancelled 6.5 mg/dL (2.5-7.5) Calcium 8.6 mg/dL (8.4-10.2) Total Bilirubin 0.1 L mg/dL (0.2-1.3) AST 18 U/L (14-36) ALT 16 U/L (6-35) Alkaline Phosphatase 109 U/L (38-126) Total Protein 6.0 L g/dL (6.3-8.2) Albumin 3.1 L g/dL (3.5-5.1) Syphilis IgG/IgM Ab Negative (Negative) HIV 1&2 Ab/P24 Ag 4thGn Negative (Negative) Blood Type A Negative Antibody Screen Positive Antibody Identification Inconclusive Antigen Identification Cancelled DEON, IgG Interpret Not Performed DEON, Poly Interpret Neg DEON, Complement Interp Not Performed Patient hx anesthesia problems: none Family hx anesthesia problems: none Results Review: All pre-operative results and documents have been reviewed as part of the pre- operative evaluation. [facility] Past Medical History Medical History (Updated 01/25/25 @ 00:18 by Annita Hansen CRNA) Obesity (BMI 30-39.9) Renal calculi Family History Family History Mother Cervical cancer Father Hypertension Grandparent Diabetes mellitus Grandparent Chronic obstructive pulmonary disease Sibling Asthma Social History Social History Smoking status: Never smoker Substance use: never Do You Feel Safe in your Home?: Yes Lack of Transportation: No Lack of Food: Never True Current Housing: I Have Housing Concerned About Future Housing: No Difficulty Paying Gas/Electric Bills: No Difficulty Paying for Meds: No Currently Unemployed: No Education: Bachelor's Degree Difficulty w/ Childcare or Family Care: No Spiritual care concerns: No Exam Day of Procedure 01/25/25 00:17
[2025-01-25] MEDS: ACETAMINOPHEN 500 MG TABLET 1000 MG PO (00:34)
[2025-01-25] MEDS: ONDANSETRON INJ 4 MG/2 ML VIAL IV PUSH (00:34)
[2025-01-25] MEDS: FAMOTIDINE 20 MG/2 ML VIAL IV PUSH (00:34)
[2025-01-25] MEDS: ceFAZolin 2 GM/D5W 50 ML 2 GM/50 ML BAG IVPB (00:35)
--- NOTE | 2025-01-25 01:33 | P.PCNOB_ITS ---
OB - Delivery Note Procedure Delivery date: 01/25/25 Pre-op diagnosis: Positive Group B Strep (GBS), Preeclampsia w/o severe features and Other (nonreassuring heart rate tracing; arrhythmia) Post-op Diagnosis: Same Induction method: Per Cervidil Protocol Delivery augmentation: Rupture of Membranes Delivery monitor: External FHT, External Uterine, Internal FHT and Internal Uterine Procedure Performed: Primary Surgeon: Brad Colvin MD Anesthesia type: Spinal Description of Procedure/Findings: Findings: Normal appearing uterus, tubes and ovaries. Techniques: She was admitted for induction of labor for preeclampsia with worsening blood pressure readings. She had received steroids. Of note, a arrhythmia had been noted intermittently on NST in the preceding weeks. Cervidil was placed and ampicillin was started IV. She had elevated bp readings requiring IV labetalol. After several hours the heart rate started to show some abnormalities. Cervidil was removed and amniotomy performed with return of clear fluid. IUPC and FSE placed. The cervix was 2-3/80/-2. FHR arrhythmia was noted. Contractions increased without oxytocin, and the tracing began to show FHR decelerations. These did not resolve, so primary was offered. The patient agreed, and she was taken to the operating room where she was prepared and draped in the usual sterile fashion in dorsal supine position with a leftward tilt. She received cefazolin preoperatively. Spinal anesthesia was administered and found to be adequate. A Pfannenstiel skin incision was made and carried through to the underlying layer of the fascia. The fascia was incised in the midline and the incision was extended laterally. The fascia was dissected free of the underlying rectus muscles. The rectus muscles were in the midline. The peritoneum was identified, tented up and entered sharply. The peritoneal incision was extended superiorly and inferiorly with good visualization of the bladder. The bladder blade was placed. The vesicouterine peritoneum was identified, tented up and entered sharply. The incision was extended laterally and the bladder flap was developed. The bladder blade was replaced. The uterus was then incised sharply in a transverse fashion along the lower uterine segment. The incision was extended laterally. The infant's head was delivered atraumatically to the sterile field, followed by the body. The nose and mouth were bulb suctioned. After a delay, the cord was clamped and cut. The infant was handed off the field. Cord blood was collected. The placenta was removed manually and was passed off the field. The uterus was exteriorized and cleared of all clots and debris. The uterine incision was reapproximated using 0 Monocryl in a running, locked fashion. Excellent hemostasis resulted as did excellent reapproximation of the normal anatomy. The uterus was returned the abdomen. The pelvis was irrigated copiously with warmed normal saline. Rigorous hemostasis was assured. The fascial layer was reapproximated using 0 Vicryl in a running fashion. The skin was closed with a running, subcuticular stitch of 4 0 Vicryl. Dermaflex was applied externally. Sponge, lap, needle and instrument counts were correct. The patient was taken to the recovery room in stable condition. The infant went to the nursery in stable condition. I was present and scrubbed the entire procedure. Plan IV magnesium sulfate for 24 hours . Specimen: Yes (placenta, cord blood) Estimated Blood Loss: 285 Urine Output: 150 Drains: Yes (urbina) Packing: No Pathology: Yes (placenta) Complications: None Condition: Stable Disposition: PACU [place] Baby Date of : 01/25/25 Time of : 01:01 Gestational Age by Date: 37 gender: Male Weight (pounds): 7 Weight (ounces): 8 presentation: vertex Placenta delivery description: Manual Removal and Normal Configuration Cord Vessel Description: 3 Vessels and Delayed Cord Clamping score one minute: 8 score five minutes: 9
[2025-01-25] MEDS: MAGNESIUM SULF 4 GM/WATER100ML 4 GM/100 ML BAG IVPB (01:41)
--- NOTE | 2025-01-25 01:41 | P.DS_ITS ---
DS: Admitting Diagnosis Discharge Date 01/27/25 Admitting Diagnosis IUP at 36 4/7 weeks Preeclampsia GBS colonization arrhythmia DS: Discharge Diagnosis Discharge Diagnosis (1) delivery delivered: Code(s): O82 - Encounter for delivery without indication Status: Acute (2) Preeclampsia: Code(s): O14.90 - Unspecified pre-eclampsia, unspecified trimester Status: Acute (3) GBS (group B Streptococcus carrier), +RV culture, currently : Code(s): O99.820 - Streptococcus B carrier state complicating Status: Acute (4) cardiac arrhythmia: Status: Acute OB - DS: Summary OB Procedures : NST and PIH Mgmt OB Procedures Intrapartum: and GBS prophylaxis OB Procedures: : None Peripartum Data Procedures: Procedures Operation Date: 01/25/25 00:10 <No data on this case meets the specified criteria> Time Spent with Patient Time attestation: Total time spent providing and/or coordinating discharge services: DS: Data Data Completed and Pending Labs on day of discharge: Labs from last 24 hours 01/24/25 01/24/25 16:41 16:41 WBC 13.0 H RBC 3.71 L Hgb 10.2 L Hct 31.0 L MCV 83.6 MCH 27.5 MCHC 32.9 RDW 12.8 Plt Count 354 MPV 10.0 Immature Gran % (Auto) 0.6 H Neut % (Auto) 80.1 H Lymph % (Auto) 13.6 L [place] % (Auto) 5.3 Eos % (Auto) 0.2 Baso % (Auto) 0.2 Lymph # (Auto) 1.77 [place] # (Auto) 0.7 H Eos # (Auto) 0.0 Baso # (Auto) 0.0 Abs Immat Gran (auto) 0.08 H Absolute Neuts (auto) 10.4 H Absolute Nucleated RBC 0.000 Nucleated RBC % 0.0 Sodium 135 L Potassium 3.5 Chloride 105 Carbon Dioxide 19 L Anion Gap 11 BUN 9 Creatinine 0.64 L Estim Creat Clear Calc Not Reportable Estimated GFR > 60 Glucose 129 H Uric Acid 6.5 Cancelled Calcium 8.6 Total Bilirubin 0.1 L AST 18 ALT 16 Alkaline Phosphatase 109 Total Protein 6.0 L Albumin 3.1 L Syphilis IgG/IgM Ab Negative HIV 1&2 Ab/P24 Ag 4thGn Negative Blood Type A Negative Antibody Screen Positive Antibody Identification Inconclusive Antigen Identification Cancelled DEON, IgG Interpret Not Performed DEON, Poly Interpret Neg DEON, Complement Interp Not Performed Discharge Plan Discharge Attending physician on discharge: Brad Colvin Discharging Clinician: Brad Colvin Patient Disposition: Home Activity: may shower, may drive after 2 weeks and pelvic rest Diet: regular Wound Care Instructions: incision open to air Discharge Instructions: Call or return if temperature above 100.4? F, increased abdominal pain, increased vaginal bleeding or any new problems. Patient Language: Cambodian Stand Alone Forms: General Discharge Information Follow-up/Referrals: Brad Colvin MD [Physician] - 1 Week Discharge Medications: New ibuprofen 600 mg tablet 600 mg PO Q6H PRN (Reason: cramps) Qty: 30 0RF nifedipine [Procardia XL] 60 mg tablet extended release 24hr 60 mg PO DAILY Qty: 30 1RF hydrocodone-acetaminophen 5-325 mg tablet 1 - 2 tablet PO Q6H PRN (Reason: pain) Qty: 30 0RF Continued PNV cmb#95-ferrous fumarate-FA [] 28 mg iron- 800 mcg tablet 1 tablet PO DAILY acetaminophen 500 mg tablet 1,000 mg PO Q6H PRN (Reason: fever or pain) Date of admission: 01/24/25 15:51 Primary Care Provider: FelipeSasha Admitting Provider: Brad Colvin Attending physician on admission: Brad Colvin Condition: Stable
[2025-01-25] MEDS: MAGNESIUM SULF 20GM/WATER500ML 500 ML 50 MG IV CONT ×3 (02:14→22:40)
[2025-01-25] MEDS: OXYTOCIN 30 UNITS/NS 500 ML 30 UNITS/500 ML BAG 125 UNITS IV CONT (03:08)
[2025-01-25] MEDS: LIDOCAINE 5% PATCH 1 PATCH TRANSDERM (04:35)
[2025-01-25] MEDS: ACETAMINOPHEN 325 MG TABLET 650 MG PO ×3 (05:22→19:04)
[2025-01-25] MEDS: KETOROLAC 15 MG/ML VIAL (*BKC) IV PUSH ×3 (05:22→19:04)
--- NOTE | 2025-01-25 05:53 | OBPPTRN ---
01/25/2025 at 0411 Patient transferred to post room #285 on stretcher. Patient transferred to bed with maxi air glide mattress. Support person present. Patient and her significant other oriented to unit, room, information board, rooming in, admission packet and security measures. Patient and her significant other verbalizes understanding.
--- NOTE | 2025-01-25 08:45 | PC.NURSE ---
Met with patient regarding and pumping needs. She is pumping with her Spectra pump because baby is in the level 2 nursery and unable to eat at this time. Patient requests assistance at the next pumping session to ensure she is using her pump correctly. She also has a [employer] 360 wearable pump and would like assistance with it's use. Discussed that we can review general pump use but that she will have to rely on her user manual for specific instruction on the functions of her individual pump. RN updated.
[2025-01-25] MEDS: SIMETHICONE 80 MG TAB.CHEW PO ×3 (12:24→19:04)
[2025-01-25] MEDS: MULTIVIT/MIN/PREN/FOL AC/IRON TABLET 1 TAB PO (12:24)
[2025-01-25] MEDS: DOCUSATE SODIUM 100 MG CAPSULE PO ×2 (12:25→19:04)
[2025-01-25] MEDS: LANOLIN (LANSINOH) 7.5 GM CREAM 1 APPLIC TOPICAL (15:02)
[2025-01-25] MEDS: DEXTROSE 5%/0.45% SOD CHL 1,000 ML 125 ML IV CONT (16:31)
[2025-01-26] VITALS (7 sets, daily range): BP systolic 145–155; BP diastolic 89–95; PULSE 73–97; RESP 18–20; TEMP 36.4–36.8; O2SAT 98–100
[2025-01-26] MEDS: ACETAMINOPHEN 325 MG TABLET 650 MG PO ×4 (01:00→22:35)
[2025-01-26] MEDS: KETOROLAC 15 MG/ML VIAL (*BKC) IV PUSH (01:01)
[2025-01-26 05:31] LABS: Basophils Percent Auto 0.1 % (0.2-1.2); Eosinophils Absolute Auto 0.1 K/mm3 (0-0.3); Eosinophils Percent Auto 0.9 % (0-4.4); Hematocrit 31.8 % (37.0-47.0); Hemoglobin 10.1 g/dL (12.0-15.0); Immature Granulocyte Absolute 0.06 K/mm3 (0.00-0.031); Immature Granulocyte Percent A 0.5 % (0-0.5); Lymphocytes Absolute Auto 1.51 K/mm3 (0.9-3.2); Mean Corpuscular HGB Conc 31.8 g/dl (32-36); Mean Corpuscular Hemoglobin 27.5 pg (26-34); Mean Corpuscular Volume 86.6 fl (80-100); Mean Platelet Volume 9.9 fl (7.4-10.4); Monocytes Absolute Auto 0.4 K/mm3 (0.1-0.6); Monocytes Percent Auto 3.7 % (2.6-8.5); Neutrophils Absolute Auto 9.5 K/mm3 (1.3-6.7); Neutrophils Percent Auto 81.8 % (45.5-73.1); Platelet Count Result 383 k/mm3 (150-375); Red Blood Count 3.67 M/mm3 (4.2-5.4); Red Cell Distribution Width 13.2 % (11.5-14.5); White Blood Count 11.6 K/mm3 (4.5-10.0)
[2025-01-26] MEDS: NIFEdipine 30 MG TAB.ER.24 PO (05:43)
[2025-01-26] MEDS: IBUPROFEN 600 MG TABLET PO ×3 (06:52→22:35)
--- NOTE | 2025-01-26 08:40 | PC.NURSE ---
Introductions were made, then consulted with patient to assess needs related to . Mother has been using her Spectra breast pump every 3-4 hours for 10-12 mins on both sides, baby is currently at [facility] in the NICU. Instructions handouts given on cleaning, care, usage, that there should be no pain, pumping schedule for milk production, collection, and storage of human milk. Patient was assessed for correct placement, flange size, to pump for comfort and nipple stretching/stimulation for adequate milk production every 3 hours (8 times in 24 hours) 1-2 times at night.?Mother had been using the size 28 flange and said she had some leaking of colostrum when she pumped. RN measured her and both nipples were 21mm, she is going to try the size 24 instead and see if it is a better fit for her. Mother voiced understanding of the education shared along with mom/baby guide and the pump measurement, flange fit handout for additional resource information. Resources provided for inpatient and outpatient services with the feeding sheet, mom/baby guide and name written on the communication board. Mother voiced understanding of information and will call if there is a request for assistance. Reported to the Primary RN.
--- NOTE | 2025-01-26 09:06 | PM.OBPNVD ---
OB - PN: Subj Subjective Date/time seen: 01/26/25 09:06 Narrative: Pain OK. Tolerating diet. OB - PN: Obj Data Labs 01/26/25 04:39 01/24/25 16:41 Labs: Laboratory Results - last 24 hr 01/26/25 04:39 WBC 11.6 H RBC 3.67 L Hgb 10.1 L Hct 31.8 L MCV 86.6 MCH 27.5 MCHC 31.8 L RDW 13.2 Plt Count 383 H MPV 9.9 Immature Gran % (Auto) 0.5 Neut % (Auto) 81.8 H Lymph % (Auto) 13.0 L [place] % (Auto) 3.7 Eos % (Auto) 0.9 Baso % (Auto) 0.1 L Lymph # (Auto) 1.51 [place] # (Auto) 0.4 Eos # (Auto) 0.1 Baso # (Auto) 0.0 Abs Immat Gran (auto) 0.06 H Absolute Neuts (auto) 9.5 H Absolute Nucleated RBC 0.000 Nucleated RBC % 0.0 Blood Type A Negative Antibody Screen TNP Screen Negative Baby's Blood Type A pos Baby's DEON Negative Doses of RhIg Required 1 OB - PN A/P Plan day: 1 Comments: A: POD#1, doing well. Preeclampsia, resolving. BP have crept up overnight. P: Started Procardia XL 30 mg daily. Routine care. Exam Narrative: BP 150/90 this morning. Otherwise, AVSS I/O OK ABD soft, nontender, fundus firm. Incision c/d/i. EXT nontender
[2025-01-26] MEDS: HYDROcodone/acetaminophen (*CRX) 5-325 MG TABLET 1 TAB PO ×2 (09:19→16:30)
[2025-01-26] MEDS: DOCUSATE SODIUM 100 MG CAPSULE PO ×2 (09:19→16:30)
[2025-01-26] MEDS: MULTIVIT/MIN/PREN/FOL AC/IRON TABLET 1 TAB PO (09:19)
[2025-01-26] MEDS: SIMETHICONE 80 MG TAB.CHEW PO ×2 (09:20→16:30)
[2025-01-26] MEDS: RHO(D) IMMUNE GLOBULIN 300 MCG/2 ML SYRINGE IM ×2 (09:56→09:58)
--- NOTE | 2025-01-26 10:41 | PC.NURSE ---
pt leaving per wheelchair on a pass to go see baby. Pt's mother accompaning her to [facility]
--- NOTE | 2025-01-26 16:05 | PC.NURSE ---
pt back from [facility]. pt voided and in bed. call light within reach.
[2025-01-27 03:19] VITALS: BP 156/98; PULSE 72; RESP 18; TEMP 36.6; O2SAT 99
[2025-01-27] MEDS: ACETAMINOPHEN 325 MG TABLET 650 MG PO ×2 (04:45→10:40)
[2025-01-27] MEDS: IBUPROFEN 600 MG TABLET PO ×2 (04:45→10:40)
[2025-01-27] MEDS: DOCUSATE SODIUM 100 MG CAPSULE PO (06:52)
[2025-01-27] MEDS: MULTIVIT/MIN/PREN/FOL AC/IRON TABLET 1 TAB PO (06:52)
[2025-01-27] MEDS: SIMETHICONE 80 MG TAB.CHEW PO (06:52)
[2025-01-27] MEDS: NIFEdipine 30 MG TAB.ER.24 PO ×2 (06:53→09:58)
[2025-01-27 08:20] VITALS: BP 152/87; PULSE 72; RESP 18; TEMP 36.4; O2SAT 100
--- NOTE | 2025-01-27 08:25 | PC.NURSE ---
Consulted with mother concerning needs and she shared that she is still pumping, she was not able to obtain the smaller size flanges for her Spectra pump from home yesterday so she is still using the size 28, she needs the 24 (she has at home), per patient the RN last night pulled a pump kit and she tried the hand pump but was not successful. Reinforced understanding of milk production, transition of milk, signs of adequate intake, transition of stool, prevention/relief of engorgement, plugged ducts, mastitis, community resources, and when to call a provider using the resource of the feeding sheet along with the mom and baby guide. Mother voiced understanding of the information shared, she will obtain the smaller flanges so she can take that with her to [facility] where baby is in the NICU, when to call for assistance, denies any additional assistance or education at this time. Reported to the Primary RN.
--- NOTE | 2025-01-27 12:17 | P.PNOB_ITS ---
OB - PN: Subj Subjective Date/time seen: 01/27/25 12:17 Narrative: Pain OK. Tolerating diet. Baby doing well in NICU. She would like to be discharged. OB - PN: Obj Data Labs 01/26/25 04:39 01/24/25 16:41 OB - PN A/P Plan day: 2 Comments: A: POD#2, doing well. BP mildly elevated, but stable. P: Home to f/u bp check next week. Time Spent With Patient Time with patient: less than 15 minutes Exam 2 Narrative: AVSS ABD soft, nontender, fundus firm. Incision c/d/i. EXT nontender
== END 2025-01-27 13:12 | disposition home or self-care (01) | DRG 788 ==
LOC: ANHLDR 01-25 01:44 → ANHOB2 01-25 05:31
PROVIDERS: Admitting Provider Obstetrics & Gynecology; Visit Provider Obstetrics & Gynecology
PROC: 10D00Z1 Extraction of Products of Conception, Low, Open Approach (ICD-10-PCS; CPT 59514; principal; 2025-01-25 00:10)
DX: O14.94 Unspecified pre-eclampsia, complicating childbirth (principal); Z37.0 Single live birth; Z3A.36 36 weeks gestation of pregnancy; O99.824 Streptococcus B carrier state complicating childbirth; O36.8330 Maternal care for abnormalities of the fetal heart rate or rhythm, third trimester, not applicable or unspecified
CPT/HCPCS: 36415; 80053; 84550; 85025; 85461; 86593; 86703; 86850; 86880; 86900; 86901; 90384; A9270; G0432; J0290; J1885; J2175; J2274; J2405; J2590; J2790; J3475; J7120